=== PATIENT | male | born 1940 | race African-American/Black ===

== ENCOUNTER 2017-02-03 17:04 | Inpatient (IN) | payer MEDICARE, OTHER ==
[~2017-02-03] VITALS: Ht 172.7 cm; Wt 129.5 kg
[~2017-02-03 17:04] MED LIST: ALBU8.5H6 IH; AMLO5TAB2 PO; AMLO5TAB4 PO; ASPI325T4 PO; ASPI81TA44 PO; BACI28.43 TP; FEBU80TA2 PO; FERR325C PO; FLUT16SP NS; FLUT1DIS3 IH; FOLI0.8T3 PO; FURO40TA4 PO; FURO80TA3 PO; FURO80TA72 PO; GLIM4TAB2 PO; HYDR-2762 PO; INSU100I13 SQ; INSU100I17 SQ; INSU100I27 SQ; ISOS60TA2 PO; LINA5TAB PO; METO100T11 PO; METO5TAB PO; NIAC1000 PO; NITR0.4T6 SL; POTA10TA10 PO; POTA20TA12 PO; PSEU120T9 PO; RANI150T2 PO; SPIR25TA3 PO; SUCR1TAB PO; TRAM50TA PO; VITA1CAP5 PO
[2017-02-03] MEDS ORDERED: MORPHINE SULFATE 4 MG/ML DISP.SYRIN. IV ONE (17:45)
--- NOTE | 2017-02-03 18:39 | RAD ---
PROCEDURE CT of the abdomen and pelvis without contrast HISTORY Mid abdominal and low back pain. History of cholecystectomy. TECHNIQUE No intravenous or oral contrast as per request. Exposure: One or more of the following individualized dose reduction techniques were utilized for this exam: 1. Automated exposure control. 2. Adjustment of the mA and/or kV according to patient size. 3. Use of iterative reconstruction technique. COMPARISON July 07, 2010. FINDINGS Coronary calcifications are noted. Lung bases are clear. Examination of solid viscera, GI tract and vascular structures is compromised by the noncontrast technique. Liver and spleen unremarkable. Pancreas unremarkable. No adrenal mass Kidneys demonstrate mild cortical scarring. No evidence of hydronephrosis or obstructive calculus. Tiny exophytic nodule at the superior pole of the right kidney only measures 7 millimeters. Nonspecific but could represent a small hyperdense or hemorrhagic cyst. Gallbladder surgically absent. Aorta is mildly calcified but non aneurysmal. No significant lymph node enlargement is identified. Small hiatal hernia. No evidence of bowel obstruction. No pericolonic inflammatory type changes. The appendix appears normal. No evidence of ascites. No focal urinary bladder wall thickening. Degenerative spondylosis of the visualized spine. IMPRESSION 1. No evidence of acute abnormality. 2. Small 7 millimeter exophytic nodule at the upper pole the right kidney, could represent a hemorrhagic cyst. Consider outpatient ultrasound for further evaluation. Electronically signed by: Lucho Cordero MD (Feb 03, 2017 18:37:41)
[2017-02-03 19:11] LABS: BILIRUBIN,URINE NEGATIVE (NEG); GLUCOSE,URINE NEGATIVE (NEG); NITRITE,URINE NEGATIVE (NEG); PH,URINE 6.5; PROTEIN,URINE NEGATIVE (NEG-TRACE); UROBILINOGEN,URINE 0.2 mg/dL (0.2 mg/dL)
--- NOTE | 2017-02-03 19:15 | PHYS DOC ---
Past Medical History Past Medical History: Arthritis, Asthma, Bronchitis, CAD, COPD, Diabetes-Type II, High Cholesterol, Heart Disease, Renal Disease, Other Additional Past Medical Histor: "Kidney trouble.", hemmorhoids Past Surgical History: Angioplasty, Cholecystectomy, Other Additional Past Surgical Histo: Umbilical hernia, Cardiac stent x 4. Alcohol Use: None Drug Use: None Adult General Chief Complaint Chief Complaint: CHEST PAIN HPI HPI Patient is a 77 year old male who presents with back pain, abdominal pain, chest pain. Patient reports for the past 2 days he has been having mid/lower back pain, mid abdominal pain, intermittent chest pain. No SOB at this time. No clear inciting or mitigating factors. He has taken a pain pill at home with insufficient relief. No other acute complaints. Review of Systems Review of Systems Constitutional: Denies fever or chills Eyes: Denies change in visual acuity or eye pain HENT: Denies nasal congestion or sore throat Respiratory: Denies cough or shortness of breath Cardiovascular: Intermittent chest pain GI: Periumbilical abdominal pain. Denies nausea, vomiting, bloody stools or diarrhea : Denies dysuria or hematuria Musculoskeletal: Mid/lower back pain Integument: Denies rash or skin lesions Neurologic: Denies headache, focal weakness or sensory changes Current Medications Current Medications Current Medications Medications (Trade) Dose Ordered Sig/Jalyn Start Time Stop Time Status Last Admin Dose Admin Morphine Sulfate 4 mg 1X ONCE 02/03/17 17:45 02/03/17 17:46 DC 02/03/17 19:22 4 MG Allergies Allergies Allergies Coded Allergies Type Severity Reaction Last Updated Verified No Known Drug Allergies 06/27/14 No Physical Exam Physical Exam Constitutional: Well developed, well nourished, no acute distress, non-toxic appearance HENT: Normocephalic, atraumatic, bilateral external ears normal Eyes: EOMI, conjunctiva normal, no discharge Neck: Normal range of motion, no stridor Cardiovascular: Heart rate normal, regular rhythm, no murmur Lungs & Thorax: Bilateral breath sounds clear to auscultation Abdomen: Protuberant, bowel sounds normal, soft, non-distended, periumbilical TTP without guarding or rebound Skin: Warm, dry, no erythema, no rash Back: Mild general TTP across lumbar back, no stepoff or deformity, no skin lesion Extremities: No obvious deformity, no edema Neurologic: Alert and oriented X 3, no gross deficits noted Current Patient Data Vital Signs Vital Signs Date Time Temp Pulse Resp B/P Pulse Ox O2 Delivery O2 Flow Rate FiO2 02/03/17 19:22 Room Air 02/03/17 17:20 98.1 84 26 168/74 97 98.1 Lab Values Laboratory Tests Test 02/03/17 19:05 02/03/17 19:09 02/03/17 19:45 Urine Collection Type Unknown Urine Color Yellow Urine Clarity Cloudy Urine pH 6.5 Urine Specific [place] <=1.005 Urine Protein Negativemg/dL (NEG-TRACE) Urine Glucose (UA) Negativemg/dL (NEG) Urine Ketones (Stick) Negativemg/dL (NEG) Urine Blood Negative (NEG) Urine Nitrite Negative (NEG) Urine Bilirubin Negative (NEG) Urine Urobilinogen Dipstick 0.2mg/dL (0.2 mg/dL) Urine Leukocyte Esterase Negative (NEG) Urine RBC 0/HPF (0-2) Urine WBC 0/HPF (0-4) Urine Bacteria 0/HPF (0-FEW) Urine Hyaline Casts Few/HPF White Blood Count 8.0x10^3/uL (4.0-11.0) Red Blood Count 4.55x10^6/uL (4.30-5.70) Hemoglobin 13.6g/dL (13.0-17.5) Hematocrit 41.4% (39.0-53.0) Mean Corpuscular Volume 91fL (79-100) Mean Corpuscular Hemoglobin 30pg (25-35) Mean Corpuscular Hemoglobin Concent 33g/dL (31-37) Red Cell Distribution Width 16.3% (11.5-14.5) H Platelet Count 199x10^3/uL (140-400) Neutrophils (%) (Auto) 59% (31-73) Lymphocytes (%) (Auto) 22% (24-48) L Monocytes (%) (Auto) 11% (0-9) H Eosinophils (%) (Auto) 7% (0-3) H Basophils (%) (Auto) 1% (0-3) Neutrophils # (Auto) 4.7x10^3uL (1.8-7.7) Lymphocytes # (Auto) 1.8x10^3/uL (1.0-4.8) Monocytes # (Auto) 0.9x10^3/uL (0.0-1.1) Eosinophils # (Auto) 0.5x10^3/uL (0.0-0.7) Basophils # (Auto) 0.1x10^3/uL (0.0-0.2) Sodium Level 137mmol/L (136-145) Potassium Level 4.3mmol/L (3.5-5.1) Chloride Level 101mmol/L (98-107) Carbon Dioxide Level 31mmol/L (21-32) Anion Gap 5 (6-14) L Blood Urea Nitrogen 41mg/dL (8-26) H Creatinine 2.4mg/dL (0.7-1.3) H Estimated GFR (Cockcroft-Gault) 32.1 BUN/Creatinine Ratio 17 (6-20) Glucose Level 233mg/dL (70-99) H Calcium Level 10.0mg/dL (8.5-10.1) Total Bilirubin 0.2mg/dL (0.2-1.0) Aspartate Amino Transferase (AST) 15U/L (15-37) Alanine Aminotransferase (ALT) 23U/L (16-63) Alkaline Phosphatase 149U/L (46-116) H Troponin I Quantitative < 0.017ng/mL (0.000-0.055) Total Protein 7.5g/dL (6.4-8.2) Albumin 3.6g/dL (3.4-5.0) Albumin/Globulin Ratio 0.9 (1.0-1.7) L Lipase 193U/L (73-393) Laboratory Tests 02/03/17 19:09 Laboratory Tests 02/03/17 19:45 EKG EKG EKG (my read): sinus rhythm, rate 84, LAD, TX interval 352ms, no acute ST/T changes Radiology/Procedures Radiology/Procedures CT A/P: IMPRESSION 1. No evidence of acute abnormality. 2. Small 7 millimeter exophytic nodule at the upper pole the right kidney, could represent a hemorrhagic cyst. Consider outpatient ultrasound for further evaluation. CXR (my read): No acute abnormality Course & Med Decision Making Course & Med Decision Making Pertinent Labs and Imaging studies reviewed. (See chart for details) Patient is 77 year old male who presents with back, abdominal, chest pain. Will check EKG, labs, CXR, CT A/P (to r/o AAA). Pain meds ordered for relief of symptoms. Imaging and EKG results as above. Labs notable for elevated creatinine , near baseline. Troponin wnl. Discussed results with patient, who continues to have pain. Given extensive PMH and chest discomfort, I would like to admit patient for cardiac rule out. Discussed with Dr. Barragan, will admit under her care for further evaluation and treatment. Dragon Disclaimer Dragon Disclaimer This electronic medical record was generated, in whole or in part, using a voice recognition dictation system. Departure Departure Impression: Primary Impression: Chest pain Additional Impressions: Abdominal pain Back pain Disposition: ADMITTED INPATIENT Admitting Physician: Other Condition: STABLE Referrals: DUSTIN RAMIREZ TELEVISION WRITER (PCP) Problem Qualifiers MADY PAYTON MD Feb 03, 2017 19:15
[2017-02-03 19:21] LABS: BACTERIA,URINE 0 /HPF (0-FEW); RBC,URINE 0 /HPF (0-2); WBC,URINE 0 /HPF (0-4)
[2017-02-03 19:22] LABS: BASO # 0.1 x10^3/uL (0.0-0.2); BASO % 1 % (0-3); EOS % 7 % (0-3); HEMATOCRIT 41.4 % (39.0-53.0); HEMOGLOBIN 13.6 g/dL (13.0-17.5); LYMPH # 1.8 x10^3/uL (1.0-4.8); LYMPH % 22 % (24-48); MEAN CORPUSCULAR HEMOGLOBIN 30 pg (25-35); MEAN CORPUSCULAR HGB CONC 33 g/dL (31-37); MEAN CORPUSCULAR VOLUME 91 fL (79-100); MONO % 11 % (0-9); NEUT % 59 % (31-73); PLATELET COUNT 199 x10^3/uL (140-400); RED BLOOD COUNT 4.55 x10^6/uL (4.30-5.70); RED CELL DISTRIBUTION WIDTH 16.3 % (11.5-14.5)
[2017-02-03 20:00] LABS: CREATININE 2.4 mg/dL (0.7-1.3); GFR 32.1; POTASSIUM 4.3 mmol/L (3.5-5.1)
[2017-02-03 20:06] LABS: ALBUMIN 3.6 g/dL (3.4-5.0); ALBUMIN/GLOBULIN RATIO 0.9 (1.0-1.7); TOTAL BILIRUBIN 0.2 mg/dL (0.2-1.0); TOTAL PROTEIN 7.5 g/dL (6.4-8.2)
[2017-02-03] MEDS ORDERED: DEXTROSE 50% 25 GM / 50ML DISP.SYRIN. IV PRN (21:45)
[2017-02-03] MEDS ORDERED: ACETAMINOPHEN 325 MG TABLET. PO PRN (21:45)
[2017-02-03] MEDS ORDERED: NITROGLYCERIN SUBLINGUAL 0.4 MG BOTTLE OF 25. SL PRN (21:45)
[2017-02-03] MEDS ORDERED: ONDANSETRON PF 4 MG/2 ML VIAL. IV PRN (21:45)
[2017-02-03] MEDS ORDERED: MORPHINE SULFATE 4 MG/ML DISP.SYRIN. IV PRN (21:45)
--- NOTE | 2017-02-03 22:03 | ACF ---
Admission Forms Criteria CHEST PAIN Clinical Indications for Admission to Inpatient Care (Place 'X' for any and all applicable criteria): Admission is indicated for chest pain and ANY ONE of the following(1)(2)(3)(4)(5 ): [ ]I. Angina with acute coronary syndrome (Also use Myocardial Infarction or Angina guideline) [ ]II. Hemodynamic instability [ ]III. Angina needing acute intervention as indicated by ALL of the following( 11)(12): [ ]a) Unstable angina is present as indicated by angina that is ANY ONE of the following: [ ]i) New onset [ ]ii) Nocturnal [ ]iii) Prolonged at rest [ ]iv) Progressive [ ]b) Angina warrants acute intervention as indicated by ANY ONE of the following: [ ]i) Recurrent angina (e.g, not responding as previously to treatment) [ ]ii) Angina at rest or with low-level activities despite initial medical therapy [ ]iii) New or presumably new ST-segment depression on ECG [ ]iv) Signs or symptoms of heart failure (eg, dyspnea, pulmonary edema) [ ]v) New or worsening mitral regurgitation [ ]vi) Hemodynamic instability [ ]vii) Dangerous arrhythmia (eg, sustained ventricular tachycardia) [ ]viii) History of percutaneous coronary intervention within 6 months [ ]ix) History of coronary artery bypass graft surgery [ ]x) OTF risk score of 2 or greater[A] [ ]xi) History of Diabetes(14) [ ]xii) High-risk cardiac ischemia findings on noninvasive testing (e.g, echocardiogram, treadmill testing, nuclear scan) [ ]xiii) Chronic renal insufficiency (ie, estimated GFR less than 60 mL/min/1.732m) [ ]xiv) Left ventricular ejection fraction less than 40% [ ]IV. Evidence of UT (eg, cardiac biomarkers positive, ST-segment elevation on ECG) also use Myocardial Infarction Criteria Form. [ ]V. Pulmonary edema [ ]. Respiratory distress [ ]VII. Chest pain indicative of serious diagnosis other than coronary artery disease (eg, aortic dissection) [ ]VIII. Contraindications and/or Inappropriate clinical situations for Observational Care in patients with Chest Pain, when ANY ONE of the following is required: [ ]a) Patient with risk factor for pulmonary embolism, acute coronary syndrome and myocardial infarction (18) [ ]b) Patient with Pulmonary embolism require an average LOS of 4.3 days, therefore emergency department observation management is inappropriate 18,23 [ ]c) Painful condition/s in the elderly, have the highest rate of recidivism after emergency department observation management (10.8%) 20,21,22 [ ]d) Elevated cardiac biomarker requires intensive and exhaustive care (19) [X]IX. General contraindications and/or Inappropriate clinical situations for Observational Care in patients with Chest Pain, when ANY ONE of the following is required: [X]a) Prediction of prolongation of LOS based on ANY ONE of the following may be considered as a contraindication for observational care 2, 3, 4, 5, 6, 7, 8, 9, 10, 11 [X]i) Age > 65 yrs. [ ]ii) Patient arriving by ambulance [ ]iii) Patient with high acuity [ ]iv) Patient requiring vital sign monitoring [ ]v) Patient on IV medication [ ]b) Systolic blood pressures 180mmHg 3,12 [ ]c) Patient with altered mental status including delirium and other alteration of consciousness, (3) [ ]d) Patient whose discharge disposition will be to a shelter home or rehabilitation home should not be managed in Emergency Department Observation Unit. CMS rule requires 3 days hospital stay before such placement. 3,13 [ ]e) Patient with failure to thrive due to broad array of etiologies 3,16,17 [ ]f) Inability to ambulate 3,14 Extended stay beyond goal length of stay may be needed for (1)(28): [ ]a) Specific condition diagnosed after evaluation (eg, pulmonary embolism, aortic dissection) [ ]b) Unstable angina [ ]c) Continued suspicion of acute coronary syndrome with inability to complete needed cardiac evaluation (eg, patient clinically unable to undergo stress testing) [ ]d) Myocardial infarction (Contents from ANGINA and CHEST PAIN clinical indications for admission to inpatient care have been integrated in this form) The original [employer] content created by [employer] has been revised. The portions of the content which have been revised are identified through the use of italic text or in bold, and [employer] [email or web address] has neither reviewed nor approved the modified material. All other unmodified content is copyright [employer] [facility]. Please see references footnoted in the original [employer] [facility] edition 2016 Admission Criteria Met?: Yes JUNI NICHOLSON Feb 03, 2017 22:03
[2017-02-03] MEDS ORDERED: ASPIRIN CHEWABLE 81 MG TABLET. PO ONE (23:00)
[2017-02-03 23:42] VITALS: BP 140/64
[2017-02-04 03:07] VITALS: BP 131/63
[2017-02-04 07:15] VITALS: BP 131/67
--- NOTE | 2017-02-04 07:36 | EKG ---
[facility] [address] [place] [address] Test Date: 2017-02-03 Test Time: 17:18:50 Pat Name: ANAHI BARTON Department: Room: [facility] Gender: M State Auditor: : 1940 Requested By: MADY PAYTON Order Number: [id number] Reading MD: Jazzy Alejandra Measurements Intervals [place] Rate: 84 P: 20 NC: 352 QRS: -27 QRSD: 78 T: 63 QT: 342 QTc: 407 Interpretive Statements SINUS RHYTHM PROLONGED NC INTERVAL Electronically Signed On 02-06-2017 10:13:20 CDT by Jazzy Alejandra
--- NOTE | 2017-02-04 08:38 | RAD ---
Portable chest, 02/03/2017: History: Chest pain, hypertension Comparison is made to a study from 06/09/2016. The heart size and pulmonary vascularity are normal. There is calcific plaquing of aorta. There is minimal left basilar scarring. No acute infiltrates are seen. There is no evidence of pleural fluid. Moderate spurring is present in the spine. IMPRESSION: No acute cardiopulmonary abnormality is detected.
[2017-02-04] MEDS ORDERED: ALBUTEROL SULFATE 8GM INHALER. IH PRN (08:45)
[2017-02-04] MEDS ORDERED: NITROGLYCERIN SUBLINGUAL 0.4 MG BOTTLE OF 25. SL PRN (08:45)
[2017-02-04] MEDS ORDERED: HYDROCODONE/APAP 7.5/325MG TABLET. PO PRN (08:45)
[2017-02-04] MEDS: INSULIN ASPART 300 UNITS/3 ML INSULN.PEN SQ SCH ×3 (08:56→17:09)
--- NOTE | 2017-02-04 08:57 | PDOC1 ---
History and Physical Date of Admission Date of Admission DATE: 02/04/17 TIME: 08:56 Identification/Chief Complaint Chief Complaint pain, mult Problems: Source Source: Caregiver, Chart review, Patient History of Present Illness History of Present Illness Mr. Hand was admitted overnight. He complained to the ER of new pain. Pain in his back and abd and chest. No new cough or dyspnea. Known prior CAD, prior stents, Dr. Rick, known CKD, has seen Dr. Love, weight has been stable, mod DM2 control, no new changes or travel. Pain 5/10, worse with movement, pain on right side of spine with standing and pain in lower abdomen when trying to sit up. his reports he is more hard of hearing, he may have been taking 160 BID lasix instead of 80 BID that was written Past Medical History Cardiovascular: AFIB, CAD, CHF, HTN, Hyperlipidemia Pulmonary: COPD, Other GI: GI bleed Heme/Onc: Anemia NOS Musculoskeletal: Other Rheumatologic: Gout Renal/: Chronic renal insuff Endocrine: Diabetes Past Surgical History Past Surgical History: Cholecystectomy, Cataract Removal, Hernia Repair, Other Family History Family History: Coronary Artery Disease, Diabetes, Hypertension, Kidney Disease Social History Smoke: Quit ALCOHOL: none Drugs: None Current Problem List Problem List Problems Medical Problems: (1) Abdominal pain Status: Acute (2) Abdominal pain Status: Acute (3) Back pain Status: Acute (4) Back pain Status: Acute (5) Chest pain Status: Acute Problems: Current Medications Current Medications Current Medications Morphine Sulfate 4 mg 1X ONCE IV Last administered on 02/03/17 19:22; Start 02/03/17 at 17:45; Stop 02/03/17 at 17:46; Status DC Ondansetron HCl (Zofran) 4 mg PRN Q8HRS PRN IV NAUSEA/VOMITING; Start 02/03/17 at 21:45; Stop 02/04/17 at 21:44 Morphine Sulfate 4 mg PRN Q2HR PRN IV SEVERE PAIN Last administered on 23:07; Start 02/03/17 at 21:45; Stop 02/04/17 at 21:44 Acetaminophen (Tylenol) 650 mg PRN Q4HRS PRN PO FEVER; Start 02/03/17 at 21:45 ; Stop 02/04/17 at 21:44 Nitroglycerin (Nitrostat) 0.4 mg PRN Q5MIN PRN SL CHEST PAIN; Start 02/03/17 at 21:45; Stop 02/04/17 at 21:44 Insulin Aspart (Novolog) 0-7 UNITS TIDWMEALS SQ ; Start 02/04/17 at 08:00 Dextrose (Dextrose 50%-Water Syringe) 12.5 gm PRN Q15MIN PRN IV SEE COMMENTS; Start 02/03/17 at 21:45 Aspirin (Children'S Aspirin) 324 mg 1X ONCE PO Last administered on 02/03/17t 23:06; Start 02/03/17 at 23:00; Stop 02/03/17 at 23:01; Status DC Albuterol Sulfate (Ventolin Hfa) 1 puff Q4HRS PRN IH SHORTNESS OF BREATH; Start 02/04/17 at 08:45; Status UNV Amlodipine Besylate (Norvasc) 5 mg DAILY PO ; Start 02/04/17 at 09:00 Fluticasone Propionate (Flonase) 2 spray DAILY NS ; Start 02/04/17 at 09:00 Acetaminophen/ Hydrocodone Bitart (Lortab 7.5/325) 1 tab PRN Q6HRS PRN PO PAIN ; Start 02/04/17 at 08:45 Insulin Detemir (Levemir) 40 units DAILY SQ ; Start 02/04/17 at 09:00 Isosorbide Mononitrate (Imdur) 60 mg DAILY PO ; Start 02/04/17 at 09:00 Linagliptin (Tradjenta) 5 mg DAILY PO ; Start 02/04/17 at 09:00 Metoprolol Succinate (Toprol Xl) 100 mg DAILY PO ; Start 02/04/17 at 09:00 Nitroglycerin (Nitrostat) 0.4 mg PRN Q5MIN PRN SL CHEST PAIN; Start 02/04/17 at 08:45 Spironolactone (Aldactone) 25 mg DAILY PO ; Start 02/04/17 at 09:00 Sucralfate (Carafate) 1 gm QIDACHS PO ; Start 02/04/17 at 11:30 Famotidine (Pepcid) 20 mg DAILY PO ; Start 02/04/17 at 09:00 Albuterol Sulfate (Ventolin Neb Soln) 2.5 mg PRN Q4HRS PRN NEB SHORTNESS OF BREATH; Start 02/04/17 at 09:00 Active Scripts Active Children's Aspirin (Aspirin) 81 Mg Tab.chew 324 Mg PO 1X Tradjenta (Linagliptin) 5 Mg Tablet 5 Mg PO DAILY Reported Levemir Flextouch (Insulin Detemir) 100 Unit/1 Ml Insuln.pen 50 SQ Lantus Solostar (Insulin Glargine,Hum.rec.anlog) 100 Unit/1 Ml Insuln.pen 0 SQ QHS Fluticasone Propionate Nasal [place] (Fluticasone Propionate) 16 Gm [place].susp 2 [place] NS DAILY Spironolactone 25 Mg Tablet 25 Mg PO DAILY NITROGLYCERIN SubLingual (Nitroglycerin) 0.4 Mg Tab.subl 0.4 Mg SL PRN Q5MIN PRN Niaspan (Niacin) 1,000 Mg Tab.er.24h 500 Mg PO HS Metoprolol Succinate ( Xl ) (Metoprolol Succinate) 100 Mg Tab.er.24h 100 Mg PO DAILY Amlodipine Besylate 5 Mg Tablet 5 Mg PO DAILY Tramadol Hcl 50 Mg Tablet 50 Mg PO PRN Q6HRS PRN Hydrocodone-Apap 7.5-325 (Hydrocodone Bit/Acetaminophen) 1 Each Tablet 1 Each PO PRN Q6HRS PRN Nephro-Macho Tablet (Folic Acid/Vitamin B Comp W-C) 0.8 Mg Tablet 0.8 Mg PO DAILY Sucralfate 1 Gm Tablet 1 Gm PO QIDACHS Ranitidine Hcl 150 Mg Tablet 150 Mg PO DAILY Isosorbide Mononitrate Er (Isosorbide Mononitrate) 60 Mg Tab.er.24h 60 Mg PO DAILY Albuterol Sulfate Hfa Inhaler (Albuterol Sulfate) 8.5 Gm Hfa.aer.ad 90 Mcg IH PRN Q4-6HRS PRN Iron (Ferrous Sulfate) 325 Mg Capsule.er 325 Mg PO DAILY Allergies Allergies: Coded Allergies: No Known Drug Allergies (Unverified , 06/27/14) ROS General: YES: Fatigue, Malaise, No: Appetite, Chills, Night Sweats, Other PSYCHOLOGICAL ROS: No: Anxiety, Behavioral Disorder, Concentration difficultie , Decreased libido, Depression, Disorientation, Hallucinations, Hostility, Irritablity, Memory difficulties, Mood Swings, Obsessive thoughts, Other, Physical abuse, Sexual abuse, Sleep disturbances, Suicidal ideation Eyes: No Blurry vision, No Decreased vision, No Double vision, No Dry eyes, No Excessive tearing, No Eye Pain, No Itchy Eyes, No Loss of vision, No Other, No Photophobia, No Scotomata, No Uses contacts, No Uses glasses HEENT: YES: Heacaches, Other (more hard of hearing), No: Epistaxis, Hearing change, Nasal congestion, Nasal discharge, Oral lesions, Sinus pain, Sneezing, Snoring, Sore Throat, Tinnitus, Vertigo, Visual Changes, Vocal changes Respiratory: No: Cough, Hemoptysis, Orthopnea, Other, Pleuritic Pain, SOB with excertion, Shortness of breath, Sputum Changes, Stridor, Tachypnea, Wheezing Cardiovascular: yes Chest Pain, No Edema, No Lt Headedness, No Orthopnea, No Other, No Palpitations, No Paroxysmal Noc. Dyspnea Gastrointestinal: Yes Abdominal Pain, No Constipation, No Diarrhea, No Hematochezia, No Melena, No Nausea, No Other , No Vomiting Genitourinary: No , No , No , No , No , No , No , No Discharge, No Dysuria, No Flank Pain, No Frequency, No Hematuria, No Incontinence, No Other, No Pain, No Retention, No Urgency Musculoskeletal: Yes Gait Disturbance, Yes Joint Pain, Yes Joint Stiffness Neurological: No Behavorial Changes, No Bowel/Bladder ControlChng, No Confusion , No Dizziness, No Gait Disturbance, No Headaches, No Impaired Coord/balance, No Memory Loss, No Numbness/Tingling, No Other, No Seizures, No Speech Problems , No Tremors, No Visual Changes, No Weakness Skin: Yes Dry Skin, No Acne, No Hair Changes, No Lumps, No Mole Changes, No Mottling, No Nail Changes, No Other, No Pruritus, No Rash, No Skin Lesion Changes Physical Exam General: Alert, Oriented X3, Cooperative, No acute distress HEENT: Atraumatic, PERRLA, EOMI, Mucous membr. moist/pink Lungs: Clear to auscultation, Normal air movement Heart: no murmurs Abdomen: Normal bowel sounds, Soft (very obese, TTP bilat lower) Rectal Exam: not examined Extremities: No edema, Other (+ clubbing, ) Skin: No breakdown Neuro: Normal speech, Sensation intact Psych/Mental Status: Mental status NL, Mood NL Vitals Vitals Vital Signs Date Time Temp Pulse Resp B/P Pulse Ox O2 Delivery O2 Flow Rate FiO2 02/04/17 07:15 98.1 74 15 131/67 92 Room Air 98.1 Labs Labs Laboratory Tests Test 02/03/17 19:05 02/03/17 19:09 02/03/17 19:45 02/04/17 03:37 Urine Collection Type Unknown Urine Color Yellow Urine Clarity Cloudy Urine pH 6.5 Urine Specific [place] <=1.005 Urine Protein Negativemg/dL (NEG-TRACE) Urine Glucose (UA) Negativemg/dL (NEG) Urine Ketones (Stick) Negativemg/dL (NEG) Urine Blood Negative (NEG) Urine Nitrite Negative (NEG) Urine Bilirubin Negative (NEG) Urine Urobilinogen Dipstick 0.2mg/dL (0.2 mg/dL) Urine Leukocyte Esterase Negative (NEG) Urine RBC 0/HPF (0-2) Urine WBC 0/HPF (0-4) Urine Bacteria 0/HPF (0-FEW) Urine Hyaline Casts Few/HPF White Blood Count 8.0x10^3/uL (4.0-11.0) Red Blood Count 4.55x10^6/uL (4.30-5.70) Hemoglobin 13.6g/dL (13.0-17.5) Hematocrit 41.4% (39.0-53.0) Mean Corpuscular Volume 91fL (79-100) Mean Corpuscular Hemoglobin 30pg (25-35) Mean Corpuscular Hemoglobin Concent 33g/dL (31-37) Red Cell Distribution Width 16.3% (11.5-14.5) Platelet Count 199x10^3/uL (140-400) Neutrophils (%) (Auto) 59% (31-73) Lymphocytes (%) (Auto) 22% (24-48) Monocytes (%) (Auto) 11% (0-9) Eosinophils (%) (Auto) 7% (0-3) Basophils (%) (Auto) 1% (0-3) Neutrophils # (Auto) 4.7x10^3uL (1.8-7.7) Lymphocytes # (Auto) 1.8x10^3/uL (1.0-4.8) Monocytes # (Auto) 0.9x10^3/uL (0.0-1.1) Eosinophils # (Auto) 0.5x10^3/uL (0.0-0.7) Basophils # (Auto) 0.1x10^3/uL (0.0-0.2) Sodium Level 137mmol/L (136-145) Potassium Level 4.3mmol/L (3.5-5.1) Chloride Level 101mmol/L (98-107) Carbon Dioxide Level 31mmol/L (21-32) Anion Gap 5 (6-14) Blood Urea Nitrogen 41mg/dL (8-26) Creatinine 2.4mg/dL (0.7-1.3) Estimated GFR (Cockcroft-Gault) 32.1 BUN/Creatinine Ratio 17 (6-20) Glucose Level 233mg/dL (70-99) Calcium Level 10.0mg/dL (8.5-10.1) Total Bilirubin 0.2mg/dL (0.2-1.0) Aspartate Amino Transf (AST/SGOT) 15U/L (15-37) Alanine Aminotransferase (ALT/SGPT) 23U/L (16-63) Alkaline Phosphatase 149U/L (46-116) Troponin I Quantitative < 0.017ng/mL (0.000-0.055) < 0.017ng/mL (0.000-0.055) Total Protein 7.5g/dL (6.4-8.2) Albumin 3.6g/dL (3.4-5.0) Albumin/Globulin Ratio 0.9 (1.0-1.7) Lipase 193U/L (73-393) Test 02/04/17 07:46 Glucose (Fingerstick) 168mg/dL (70-99) Laboratory Tests Test 02/03/17 19:05 02/03/17 19:09 02/03/17 19:45 02/04/17 03:37 Urine Collection Type Unknown Urine Color Yellow Urine Clarity Cloudy Urine pH 6.5 Urine Specific [place] <=1.005 Urine Protein Negativemg/dL (NEG-TRACE) Urine Glucose (UA) Negativemg/dL (NEG) Urine Ketones (Stick) Negativemg/dL (NEG) Urine Blood Negative (NEG) Urine Nitrite Negative (NEG) Urine Bilirubin Negative (NEG) Urine Urobilinogen Dipstick 0.2mg/dL (0.2 mg/dL) Urine Leukocyte Esterase Negative (NEG) Urine RBC 0/HPF (0-2) Urine WBC 0/HPF (0-4) Urine Bacteria 0/HPF (0-FEW) Urine Hyaline Casts Few/HPF White Blood Count 8.0x10^3/uL (4.0-11.0) Red Blood Count 4.55x10^6/uL (4.30-5.70) Hemoglobin 13.6g/dL (13.0-17.5) Hematocrit 41.4% (39.0-53.0) Mean Corpuscular Volume 91fL (79-100) Mean Corpuscular Hemoglobin 30pg (25-35) Mean Corpuscular Hemoglobin Concent 33g/dL (31-37) Red Cell Distribution Width 16.3% (11.5-14.5) Platelet Count 199x10^3/uL (140-400) Neutrophils (%) (Auto) 59% (31-73) Lymphocytes (%) (Auto) 22% (24-48) Monocytes (%) (Auto) 11% (0-9) Eosinophils (%) (Auto) 7% (0-3) Basophils (%) (Auto) 1% (0-3) Neutrophils # (Auto) 4.7x10^3uL (1.8-7.7) Lymphocytes # (Auto) 1.8x10^3/uL (1.0-4.8) Monocytes # (Auto) 0.9x10^3/uL (0.0-1.1) Eosinophils # (Auto) 0.5x10^3/uL (0.0-0.7) Basophils # (Auto) 0.1x10^3/uL (0.0-0.2) Sodium Level 137mmol/L (136-145) Potassium Level 4.3mmol/L (3.5-5.1) Chloride Level 101mmol/L (98-107) Carbon Dioxide Level 31mmol/L (21-32) Anion Gap 5 (6-14) Blood Urea Nitrogen 41mg/dL (8-26) Creatinine 2.4mg/dL (0.7-1.3) Estimated GFR (Cockcroft-Gault) 32.1 BUN/Creatinine Ratio 17 (6-20) Glucose Level 233mg/dL (70-99) Calcium Level 10.0mg/dL (8.5-10.1) Total Bilirubin 0.2mg/dL (0.2-1.0) Aspartate Amino Transf (AST/SGOT) 15U/L (15-37) Alanine Aminotransferase (ALT/SGPT) 23U/L (16-63) Alkaline Phosphatase 149U/L (46-116) Troponin I Quantitative < 0.017ng/mL (0.000-0.055) < 0.017ng/mL (0.000-0.055) Total Protein 7.5g/dL (6.4-8.2) Albumin 3.6g/dL (3.4-5.0) Albumin/Globulin Ratio 0.9 (1.0-1.7) Lipase 193U/L (73-393) Test 02/04/17 07:46 Glucose (Fingerstick) 168mg/dL (70-99) VTE Prophylaxis Ordered VTE Prophylaxis Devices: Yes VTE Pharmacological Prophylaxi: No Assessment/Plan Assessment/Plan Back pain, chest pain, abd pain, consult Physiatry CT abd showed possible small bleed near kidney, renal to follow, pain minor if this is cause muscular pain also, PT and OT and pain control morbid obesity, BMI 59 CKD 3-4 CAD, known DM2, check A1c admit EVERARDO STEPHENS MD Feb 04, 2017 08:57
[2017-02-04] MEDS ORDERED: ALBUTEROL SULFATE 2.5 MG/3 ML NEBU. NEB PRN (09:00)
[2017-02-04] MEDS ORDERED: IPRATRPIUM/ALBUTEROL 0.5/2.5MG 3 ML NEBU. NEB PRN (09:15)
[2017-02-04] MEDS ORDERED: BUPIVACAINE MPF 0.25% 10 ML VIAL. IJ ONE (09:30)
[2017-02-04] MEDS ORDERED: BACLOFEN 10 MG TABLET. PO PRN (09:30)
[2017-02-04] MEDS ORDERED: methylPREDNISolone ACETATE 40 MG/ML VIAL. IM ONE (09:30)
[2017-02-04] MEDS ORDERED: HYDROCODONE/APAP 10/325 TABLET. PO PRN (09:30)
[2017-02-04] MEDS: MINERAL OIL/PETROLATUM TOPICAL CREAM 113GM JAR. TP SCH ×2 (10:00→20:38)
[2017-02-04] MEDS: ISOSORBIDE MONONITRATE ER 30 MG TAB.ER.24H PO SCH (10:13)
[2017-02-04] MEDS: METOPROLOL SUCC 24HR ER 100 MG TAB.ER.24H. PO SCH (10:14)
[2017-02-04] MEDS: AMLODIPINE BESYLATE 5 MG TABLET. PO SCH (10:14)
[2017-02-04] MEDS: LINAGLIPTIN 5 MG TABLET PO SCH (10:14)
[2017-02-04] MEDS: SPIRONOLACTONE 25 MG TABLET PO SCH (10:14)
[2017-02-04] MEDS: FAMOTIDINE 20 MG TABLET. PO SCH (10:14)
[2017-02-04] MEDS: INSULIN DETEMIR 300 UNITS/3 ML INSULN.PEN. SQ SCH (10:18)
--- NOTE | 2017-02-04 10:23 | PDOC2 ---
CONSULT Date of Consult Date of Consult DATE: 02/04/17 TIME: 10:17 Reason for Consult Reason for Consult: AIDEN/ CK DIII Referring Physician Referring Physician: Dr Barragan/ Dr Lopez Identification/Chief Complaint Chief Complaint Pain all over Problems: Source Source: Chart review, Patient History of Present Illness Reason for Visit: as dictated Past Medical History Cardiovascular: AFIB, CAD, CHF, HTN, Hyperlipidemia Pulmonary: COPD, Other GI: GI bleed Heme/Onc: Anemia NOS Musculoskeletal: Other Rheumatologic: Gout Renal/: Chronic renal insuff Endocrine: Diabetes Past Surgical History Past Surgical History: Cholecystectomy, Cataract Removal, Hernia Repair, Other Family History Family History: Coronary Artery Disease, Diabetes, Hypertension, Kidney Disease Social History Quit ALCOHOL: none Drugs: None Lives: with Family Current Problem List Problem List Problems Medical Problems: (1) Abdominal pain Status: Acute (2) Abdominal pain Status: Acute (3) Back pain Status: Acute (4) Back pain Status: Acute (5) Chest pain Status: Acute Current Medications Current Medications Current Medications Morphine Sulfate 4 mg 1X ONCE IV Last administered on 02/03/17 19:22; Start 02/03/17 at 17:45; Stop 02/03/17 at 17:46; Status DC Ondansetron HCl (Zofran) 4 mg PRN Q8HRS PRN IV NAUSEA/VOMITING; Start 02/03/17 at 21:45; Stop 02/04/17 at 21:44 Morphine Sulfate 4 mg PRN Q2HR PRN IV SEVERE PAIN Last administered on 23:07; Start 02/03/17 at 21:45; Stop 02/04/17 at 21:44 Acetaminophen (Tylenol) 650 mg PRN Q4HRS PRN PO FEVER; Start 02/03/17 at 21:45 ; Stop 02/04/17 at 21:44 Nitroglycerin (Nitrostat) 0.4 mg PRN Q5MIN PRN SL CHEST PAIN; Start 02/03/17 at 21:45; Stop 02/04/17 at 21:44 Insulin Aspart (Novolog) 0-7 UNITS TIDWMEALS SQ Last administered on 02/04/17 08:56; Start 02/04/17 at 08:00 Dextrose (Dextrose 50%-Water Syringe) 12.5 gm PRN Q15MIN PRN IV SEE COMMENTS; Start 02/03/17 at 21:45 Aspirin (Children'S Aspirin) 324 mg 1X ONCE PO Last administered on 02/03/17t 23:06; Start 02/03/17 at 23:00; Stop 02/03/17 at 23:01; Status DC Albuterol Sulfate (Ventolin Hfa) 1 puff Q4HRS PRN IH SHORTNESS OF BREATH; Start 02/04/17 at 08:45; Status UNV Amlodipine Besylate (Norvasc) 5 mg DAILY PO ; Start 02/04/17 at 09:00 Fluticasone Propionate (Flonase) 2 spray DAILY NS ; Start 02/04/17 at 09:00 Acetaminophen/ Hydrocodone Bitart (Lortab 7.5/325) 1 tab PRN Q6HRS PRN PO PAIN ; Start 02/04/17 at 08:45 Insulin Detemir (Levemir) 40 units DAILY SQ ; Start 02/04/17 at 09:00 Isosorbide Mononitrate (Imdur) 60 mg DAILY PO ; Start 02/04/17 at 09:00 Linagliptin (Tradjenta) 5 mg DAILY PO ; Start 02/04/17 at 09:00 Metoprolol Succinate (Toprol Xl) 100 mg DAILY PO ; Start 02/04/17 at 09:00 Nitroglycerin (Nitrostat) 0.4 mg PRN Q5MIN PRN SL CHEST PAIN; Start 02/04/17 at 08:45 Spironolactone (Aldactone) 25 mg DAILY PO ; Start 02/04/17 at 09:00 Sucralfate (Carafate) 1 gm QIDACHS PO ; Start 02/04/17 at 11:30 Famotidine (Pepcid) 20 mg DAILY PO ; Start 02/04/17 at 09:00 Albuterol Sulfate (Ventolin Neb Soln) 2.5 mg PRN Q4HRS PRN NEB SHORTNESS OF BREATH; Start 02/04/17 at 09:00 Albuterol/ Ipratropium (Duoneb) 3 ml PRN QID PRN NEB dyspnea; Start 02/04/17 at 09:15 Methylprednisolone Acetate (Depo-Medrol 40mg Vial) 40 mg 1X ONCE IM ; Start at 09:30; Stop 02/04/17 at 09:41; Status DC Bupivacaine HCl (Sensorcaine-Mpf 0.25%) 10 ml 1X ONCE IJ ; Start 02/04/17 at 09 :30; Stop 02/04/17 at 09:41; Status DC Acetaminophen/ Hydrocodone Bitart (Lortab 10/325) 1 tab PRN Q6HRS PRN PO PAIN; Start 02/04/17 at 09:30 Baclofen (Lioresal) 10 mg PRN Q6HRS PRN PO MUSCLE SPASMS; Start 02/04/17 at 09: 30 Lidocaine (Lidoderm) 1 patch DAILY TD ; Start 02/04/17 at 10:00 Multi-Ingred Cream/Lotion/Oil/ Oint (Hydrocerin) 1 junie BID TP ; Start 02/04/17 at 10:00 Active Scripts Active Children's Aspirin (Aspirin) 81 Mg Tab.chew 324 Mg PO 1X Tradjenta (Linagliptin) 5 Mg Tablet 5 Mg PO DAILY Reported Levemir Flextouch (Insulin Detemir) 100 Unit/1 Ml Insuln.pen 50 SQ Lantus Solostar (Insulin Glargine,Hum.rec.anlog) 100 Unit/1 Ml Insuln.pen 0 SQ QHS Fluticasone Propionate Nasal [place] (Fluticasone Propionate) 16 Gm [place].susp 2 [place] NS DAILY Spironolactone 25 Mg Tablet 25 Mg PO DAILY NITROGLYCERIN SubLingual (Nitroglycerin) 0.4 Mg Tab.subl 0.4 Mg SL PRN Q5MIN PRN Niaspan (Niacin) 1,000 Mg Tab.er.24h 500 Mg PO HS Metoprolol Succinate ( Xl ) (Metoprolol Succinate) 100 Mg Tab.er.24h 100 Mg PO DAILY Amlodipine Besylate 5 Mg Tablet 5 Mg PO DAILY Tramadol Hcl 50 Mg Tablet 50 Mg PO PRN Q6HRS PRN Hydrocodone-Apap 7.5-325 (Hydrocodone Bit/Acetaminophen) 1 Each Tablet 1 Each PO PRN Q6HRS PRN Nephro-Macho Tablet (Folic Acid/Vitamin B Comp W-C) 0.8 Mg Tablet 0.8 Mg PO DAILY Sucralfate 1 Gm Tablet 1 Gm PO QIDACHS Ranitidine Hcl 150 Mg Tablet 150 Mg PO DAILY Isosorbide Mononitrate Er (Isosorbide Mononitrate) 60 Mg Tab.er.24h 60 Mg PO DAILY Albuterol Sulfate Hfa Inhaler (Albuterol Sulfate) 8.5 Gm Hfa.aer.ad 90 Mcg IH PRN Q4-6HRS PRN Iron (Ferrous Sulfate) 325 Mg Capsule.er 325 Mg PO DAILY Allergies Allergies: Coded Allergies: No Known Drug Allergies (Unverified , 06/27/14) ROS Review of System GEN: no Fevers no Chills EYES: no new Visual Complaints ENT: no EN Drainage n Hearing deficiets CVS: no Orthopnea + CP (POA) - now resolved RESP: Subj SOB ? [facility] GI: no Nausea no Vomiting ? Subj Constipation : no Dysuria no Urgency Dec UO HEME: no easy bruising no Palp Ly Nodes NEURO no Focal Weakness no Sz PSYCH: no Suicidal Ideation ?underlying Depression SKIN: no Rashes ENDO: no Polyuria or Polydipsia no Hot/Cold Intolerance MU SK: occ Arthraigia min Myalgia Physical Exam Physical Exam General Appearance: Awake Alert Oriented x 3 In no Distress - flat affect Eyes: VIsion Unchanged Conjunctiva Normal EN: No EN Drainage Mucous Memb. dryish Neck: no JVD no JVP Supple no Thyromegaly; thic neck CVS: S1 S2 no Murmur No Gallop No Rub + Edema Resp: no Rales no Rhonchi no Acc. Muscle use GI: BAS +ve NO Bruit Non Tender Non Distended Obese : no CVA tenderness; no Suprapubic Tenderness SKIN: no Rashes Breast Exam deferred Mu.Sk: Adequate ROM no Muscle Atrophy Heme: Unable to palpate Obvious LAD no palp Splenomegaly NEURO: Good Strength and Tone Cranial Nerves II - XII grossly intact Psych: ? Depressed no Active hallucination Vital Signs Vital Signs Date Time Temp Pulse Resp B/P Pulse Ox O2 Delivery O2 Flow Rate FiO2 02/04/17 07:15 98.1 74 15 131/67 92 Room Air 98.1 Assessment & Plan ARF/ VMN - due to ^ed Lasix intake. Currently Oliguric - IVF for now: (UA is benign) Current FLuid and E-lyte status does not necessitate emergent need for Dialysis. Will re-evaluate for Dialysis in am CKD III (DM/ HTNsive /NS) - Baseline Creat was 2.0 Oliguria - IVF for now and revMaribel carrasco Bl Scan ? ^ed Protein gap - Unclear Etio - check for Paraprotein ? Vol Dpeltion - IVF as ordered HTN: Current BP meds reviewed. See orders for changes. Discussed Plan of Care and prognosis etc. at length with family. Labs Labs Laboratory Tests Test 02/03/17 19:05 02/03/17 19:09 02/03/17 19:45 02/04/17 03:37 Urine Collection Type Unknown Urine Color Yellow Urine Clarity Cloudy Urine pH 6.5 Urine Specific [place] <=1.005 Urine Protein Negativemg/dL (NEG-TRACE) Urine Glucose (UA) Negativemg/dL (NEG) Urine Ketones (Stick) Negativemg/dL (NEG) Urine Blood Negative (NEG) Urine Nitrite Negative (NEG) Urine Bilirubin Negative (NEG) Urine Urobilinogen Dipstick 0.2mg/dL (0.2 mg/dL) Urine Leukocyte Esterase Negative (NEG) Urine RBC 0/HPF (0-2) Urine WBC 0/HPF (0-4) Urine Bacteria 0/HPF (0-FEW) Urine Hyaline Casts Few/HPF White Blood Count 8.0x10^3/uL (4.0-11.0) Red Blood Count 4.55x10^6/uL (4.30-5.70) Hemoglobin 13.6g/dL (13.0-17.5) Hematocrit 41.4% (39.0-53.0) Mean Corpuscular Volume 91fL (79-100) Mean Corpuscular Hemoglobin 30pg (25-35) Mean Corpuscular Hemoglobin Concent 33g/dL (31-37) Red Cell Distribution Width 16.3% (11.5-14.5) Platelet Count 199x10^3/uL (140-400) Neutrophils (%) (Auto) 59% (31-73) Lymphocytes (%) (Auto) 22% (24-48) Monocytes (%) (Auto) 11% (0-9) Eosinophils (%) (Auto) 7% (0-3) Basophils (%) (Auto) 1% (0-3) Neutrophils # (Auto) 4.7x10^3uL (1.8-7.7) Lymphocytes # (Auto) 1.8x10^3/uL (1.0-4.8) Monocytes # (Auto) 0.9x10^3/uL (0.0-1.1) Eosinophils # (Auto) 0.5x10^3/uL (0.0-0.7) Basophils # (Auto) 0.1x10^3/uL (0.0-0.2) Sodium Level 137mmol/L (136-145) Potassium Level 4.3mmol/L (3.5-5.1) Chloride Level 101mmol/L (98-107) Carbon Dioxide Level 31mmol/L (21-32) Anion Gap 5 (6-14) Blood Urea Nitrogen 41mg/dL (8-26) Creatinine 2.4mg/dL (0.7-1.3) Estimated GFR (Cockcroft-Gault) 32.1 BUN/Creatinine Ratio 17 (6-20) Glucose Level 233mg/dL (70-99) Calcium Level 10.0mg/dL (8.5-10.1) Total Bilirubin 0.2mg/dL (0.2-1.0) Aspartate Amino Transf (AST/SGOT) 15U/L (15-37) Alanine Aminotransferase (ALT/SGPT) 23U/L (16-63) Alkaline Phosphatase 149U/L (46-116) Troponin I Quantitative < 0.017ng/mL (0.000-0.055) < 0.017ng/mL (0.000-0.055) Total Protein 7.5g/dL (6.4-8.2) Albumin 3.6g/dL (3.4-5.0) Albumin/Globulin Ratio 0.9 (1.0-1.7) Lipase 193U/L (73-393) Test 02/04/17 07:46 Glucose (Fingerstick) 168mg/dL (70-99) Laboratory Tests Test 02/03/17 19:05 02/03/17 19:09 02/03/17 19:45 02/04/17 03:37 Urine Collection Type Unknown Urine Color Yellow Urine Clarity Cloudy Urine pH 6.5 Urine Specific [place] <=1.005 Urine Protein Negativemg/dL (NEG-TRACE) Urine Glucose (UA) Negativemg/dL (NEG) Urine Ketones (Stick) Negativemg/dL (NEG) Urine Blood Negative (NEG) Urine Nitrite Negative (NEG) Urine Bilirubin Negative (NEG) Urine Urobilinogen Dipstick 0.2mg/dL (0.2 mg/dL) Urine Leukocyte Esterase Negative (NEG) Urine RBC 0/HPF (0-2) Urine WBC 0/HPF (0-4) Urine Bacteria 0/HPF (0-FEW) Urine Hyaline Casts Few/HPF White Blood Count 8.0x10^3/uL (4.0-11.0) Red Blood Count 4.55x10^6/uL (4.30-5.70) Hemoglobin 13.6g/dL (13.0-17.5) Hematocrit 41.4% (39.0-53.0) Mean Corpuscular Volume 91fL (79-100) Mean Corpuscular Hemoglobin 30pg (25-35) Mean Corpuscular Hemoglobin Concent 33g/dL (31-37) Red Cell Distribution Width 16.3% (11.5-14.5) Platelet Count 199x10^3/uL (140-400) Neutrophils (%) (Auto) 59% (31-73) Lymphocytes (%) (Auto) 22% (24-48) Monocytes (%) (Auto) 11% (0-9) Eosinophils (%) (Auto) 7% (0-3) Basophils (%) (Auto) 1% (0-3) Neutrophils # (Auto) 4.7x10^3uL (1.8-7.7) Lymphocytes # (Auto) 1.8x10^3/uL (1.0-4.8) Monocytes # (Auto) 0.9x10^3/uL (0.0-1.1) Eosinophils # (Auto) 0.5x10^3/uL (0.0-0.7) Basophils # (Auto) 0.1x10^3/uL (0.0-0.2) Sodium Level 137mmol/L (136-145) Potassium Level 4.3mmol/L (3.5-5.1) Chloride Level 101mmol/L (98-107) Carbon Dioxide Level 31mmol/L (21-32) Anion Gap 5 (6-14) Blood Urea Nitrogen 41mg/dL (8-26) Creatinine 2.4mg/dL (0.7-1.3) Estimated GFR (Cockcroft-Gault) 32.1 BUN/Creatinine Ratio 17 (6-20) Glucose Level 233mg/dL (70-99) Calcium Level 10.0mg/dL (8.5-10.1) Total Bilirubin 0.2mg/dL (0.2-1.0) Aspartate Amino Transf (AST/SGOT) 15U/L (15-37) Alanine Aminotransferase (ALT/SGPT) 23U/L (16-63) Alkaline Phosphatase 149U/L (46-116) Troponin I Quantitative < 0.017ng/mL (0.000-0.055) < 0.017ng/mL (0.000-0.055) Total Protein 7.5g/dL (6.4-8.2) Albumin 3.6g/dL (3.4-5.0) Albumin/Globulin Ratio 0.9 (1.0-1.7) Lipase 193U/L (73-393) Test 02/04/17 07:46 Glucose (Fingerstick) 168mg/dL (70-99) Images Images CT Abd Without IVC : Kidneys demonstrate mild cortical scarring. No evidence of hydronephrosis or obstructive calculus. Tiny exophytic nodule at the superior pole of the right kidney only measures 7 millimeters. Nonspecific but could represent a small hyperdense or hemorrhagic cyst. Gallbladder surgically absent. Aorta is mildly calcified but non aneurysmal JOHANNY MURPHY MD Feb 04, 2017 10:23
[2017-02-04] MEDS ORDERED: MAGNESIUM SULFATE 2GM 50 ML IV PRN (10:30)
--- NOTE | 2017-02-04 10:44 | CONS ---
DATE OF CONSULTATION: LOCATION: Room 530. ATTENDING PHYSICIAN: Dr. Radha Barragan. The patient was seen at the request of Dr. Lopez for rehab evaluation about his back pain. HISTORY OF PRESENT ILLNESS: This is a 77-year-old right-handed male admitted through the Emergency Room with lower back pain without any radiation, without any specific injury going on for about two days. The patient with known coronary artery disease status post previous stenting, chronic kidney disease, being followed by Dr. Love, also diabetes mellitus, under good control. His weight has been stable. The patient admits pain on the right side of his spine, standing and also admits some lower abdominal pain while trying to sit up. The patient also with known congestive heart failure, hypertension, hyperlipidemia, chronic obstructive pulmonary disease, previous smoker, but quit smoking, GI bleed in the past, anemia, and gouty arthritis. He lives with his in a [place], [place] home, had five stairs with railing to enter the house and he did not use any assistive device to get around prior to the present hospitalization. Past medical history also included cholecystectomy, cataract surgery, and hernia repair. He denies any tingling or numbness sensation in the extremities. He denies any trouble with his bowel or bladder control. PHYSICAL EXAMINATION: Today revealed an elderly male. He is obese. He is alert, oriented to time, place, person and circumstance and follows commands appropriately, moves all four extremities voluntarily where he had 4+/5 grade muscle strength and deep tendon reflexes are decreased overall with absent ankle jerks and he had equal perception of touch and pinprick sensation bilaterally. Straight leg raising test is negative bilaterally. He had dry scaly skin of his extremities. He had minimal degree of lumbar paraspinal muscle spasm and tenderness to palpation over lumbar paraspinal muscles extending over to sacroiliac joint area, mainly on the right side. The patient is independent with bed mobility and transfers and walking at bedside without any assistive devices. He had painful limited movements of his lumbar spine. ASSESSMENT: An elderly male with radiological evidence of degenerative disk disease mainly at L5-S1 with subacute lumbar sprain. No clinical evidence of ongoing lumbar radiculopathy, also obesity, hypertension, hyperlipidemia, diabetes mellitus, coronary artery disease, congestive heart failure, atrial fibrillation, chronic obstructive pulmonary disease, previous gastrointestinal bleeding, or chronic renal insufficiency. RECOMMENDATIONS: Agree with the plan for physical therapy and occupational therapy. He apparently has some lumbar corset to ask his to bring it for use while up to proceed with a trigger point injections to lumbar paraspinal muscles to help ease his back pain. Hopefully, home when medically stable in the next day or so. Dr. Lopez, I appreciate asking me to participate in the care of this interesting patient. I will be glad to follow him with you as needed for the rehabilitation. CINDY NELSON MD DR: JODI/maude JOB#: [id number] / [id number]
[2017-02-04] MEDS: FLUTICASONE 50MCG/NASAL SPRAY 16GM BOTTLE. NS SCH (11:26)
[2017-02-04] MEDS: LIDOCAINE (700MG/PATCH) PATCH. TD SCH (11:27)
[2017-02-04] MEDS: SUCRALFATE 1 GM TABLET. PO SCH ×3 (11:27→20:37)
[2017-02-04 11:40] VITALS: BP 120/62
--- NOTE | 2017-02-04 12:05 | RAD ---
Indication small mass seen on CT. Grayscale imaging was performed targeted to the kidneys. Study is somewhat limited by virtue of patient body habitus. Note is made of the CT examination 02/03/2017 and the accompanying report. The right kidney measures 12.9 x 4.9 x 6.3 cm. In the superior pole of the right kidney there is an 8 mm hypoechoic mass compatible with a cyst. The left kidney measures approximately 12.4 x 4.6 x 6.1 cm and appears unremarkable. The urinary bladder appears grossly normal. IMPRESSION: Small cyst associated with the right kidney
--- NOTE | 2017-02-04 12:27 | PDOC2 ---
CONSULT Date of Consult Date of Consult DATE: 02/04/17 Reason for Consult Reason for Consult: chest pain/back pain History of Present Illness Reason for Visit: Patient presented to the ED complaining of abdominal/back and chest pain. CT abdomen showed a small bleed near the kidney. He denies any shortness of breath or cough. Patient denies any cardiac complaints at this time. Past Medical History Cardiovascular: AFIB, CAD, CHF, HTN, Hyperlipidemia Pulmonary: COPD, Other GI: GI bleed Heme/Onc: Anemia NOS Musculoskeletal: Other Rheumatologic: Gout Renal/: Chronic renal insuff Endocrine: Diabetes Past Surgical History Past Surgical History: Cholecystectomy, Cataract Removal, Hernia Repair, Other Family History Family History: Coronary Artery Disease, Diabetes, Hypertension, Kidney Disease Social History Quit ALCOHOL: none Drugs: None Lives: with Family Current Problem List Problem List Problems Medical Problems: (1) Abdominal pain Status: Acute (2) Abdominal pain Status: Acute (3) Back pain Status: Acute (4) Back pain Status: Acute (5) Chest pain Status: Acute Current Medications Current Medications Current Medications Morphine Sulfate 4 mg 1X ONCE IV Last administered on 02/03/17 19:22; Start 02/03/17 at 17:45; Stop 02/03/17 at 17:46; Status DC Ondansetron HCl (Zofran) 4 mg PRN Q8HRS PRN IV NAUSEA/VOMITING; Start 02/03/17 at 21:45; Stop 02/04/17 at 21:44 Morphine Sulfate 4 mg PRN Q2HR PRN IV SEVERE PAIN Last administered on 23:07; Start 02/03/17 at 21:45; Stop 02/04/17 at 21:44 Acetaminophen (Tylenol) 650 mg PRN Q4HRS PRN PO FEVER; Start 02/03/17 at 21:45 ; Stop 02/04/17 at 21:44 Nitroglycerin (Nitrostat) 0.4 mg PRN Q5MIN PRN SL CHEST PAIN; Start 02/03/17 at 21:45; Stop 02/04/17 at 21:44 Insulin Aspart (Novolog) 0-7 UNITS TIDWMEALS SQ Last administered on 02/04/17 08:56; Start 02/04/17 at 08:00 Dextrose (Dextrose 50%-Water Syringe) 12.5 gm PRN Q15MIN PRN IV SEE COMMENTS; Start 02/03/17 at 21:45 Aspirin (Children'S Aspirin) 324 mg 1X ONCE PO Last administered on 02/03/17 23:06; Start 02/03/17 at 23:00; Stop 02/03/17 at 23:01; Status DC Albuterol Sulfate (Ventolin Hfa) 1 puff Q4HRS PRN IH SHORTNESS OF BREATH; Start 02/04/17 at 08:45; Status UNV Amlodipine Besylate (Norvasc) 5 mg DAILY PO Last administered on 02/04/17 10: 14; Start 02/04/17 at 09:00 Fluticasone Propionate (Flonase) 2 spray DAILY NS Last administered on 11:26; Start 02/04/17 at 09:00 Acetaminophen/ Hydrocodone Bitart (Lortab 7.5/325) 1 tab PRN Q6HRS PRN PO PAIN ; Start 02/04/17 at 08:45 Insulin Detemir (Levemir) 40 units DAILY SQ Last administered on 02/04/17 10: 18; Start 02/04/17 at 09:00 Isosorbide Mononitrate (Imdur) 60 mg DAILY PO Last administered on 02/04/17 10 :13; Start 02/04/17 at 09:00 Linagliptin (Tradjenta) 5 mg DAILY PO Last administered on 02/04/17 10:14; Start 02/04/17 at 09:00 Metoprolol Succinate (Toprol Xl) 100 mg DAILY PO Last administered on 10:14; Start 02/04/17 at 09:00 Nitroglycerin (Nitrostat) 0.4 mg PRN Q5MIN PRN SL CHEST PAIN; Start 02/04/17 at 08:45 Spironolactone (Aldactone) 25 mg DAILY PO Last administered on 02/04/17 10:14 ; Start 02/04/17 at 09:00 Sucralfate (Carafate) 1 gm QIDACHS PO Last administered on 02/04/17 11:27; Start 02/04/17 at 11:30 Famotidine (Pepcid) 20 mg DAILY PO Last administered on 02/04/17 10:14; Start 02/04/17 at 09:00 Albuterol Sulfate (Ventolin Neb Soln) 2.5 mg PRN Q4HRS PRN NEB SHORTNESS OF BREATH; Start 02/04/17 at 09:00 Albuterol/ Ipratropium (Duoneb) 3 ml PRN QID PRN NEB dyspnea Last administered on 02/04/17 11:58; Start 02/04/17 at 09:15 Methylprednisolone Acetate (Depo-Medrol 40mg Vial) 40 mg 1X ONCE IM ; Start at 09:30; Stop 02/04/17 at 09:41; Status DC Bupivacaine HCl (Sensorcaine-Mpf 0.25%) 10 ml 1X ONCE IJ ; Start 02/04/17 at 09 :30; Stop 02/04/17 at 09:41; Status DC Acetaminophen/ Hydrocodone Bitart (Lortab 10/325) 1 tab PRN Q6HRS PRN PO PAIN; Start 02/04/17 at 09:30 Baclofen (Lioresal) 10 mg PRN Q6HRS PRN PO MUSCLE SPASMS; Start 02/04/17 at 09: 30 Lidocaine (Lidoderm) 1 patch DAILY TD Last administered on 02/04/17 11:27; Start 02/04/17 at 10:00 Multi-Ingred Cream/Lotion/Oil/ Oint 1 junie 1 junie BID TP Last administered on 10:00; Start 02/04/17 at 10:00 Magnesium Sulfate/ Dextrose (Magnesium Sulfate PREMIX 2GM) 50 ml @ 25 mls/hr PRN DAILY PRN IV for Mag < 1.7 on am labs; Start 02/04/17 at 10:30 Active Scripts Active Children's Aspirin (Aspirin) 81 Mg Tab.chew 324 Mg PO 1X Tradjenta (Linagliptin) 5 Mg Tablet 5 Mg PO DAILY Reported Levemir Flextouch (Insulin Detemir) 100 Unit/1 Ml Insuln.pen 50 SQ Lantus Solostar (Insulin Glargine,Hum.rec.anlog) 100 Unit/1 Ml Insuln.pen 0 SQ QHS Fluticasone Propionate Nasal [place] (Fluticasone Propionate) 16 Gm [place].susp 2 [place] NS DAILY Spironolactone 25 Mg Tablet 25 Mg PO DAILY NITROGLYCERIN SubLingual (Nitroglycerin) 0.4 Mg Tab.subl 0.4 Mg SL PRN Q5MIN PRN Niaspan (Niacin) 1,000 Mg Tab.er.24h 500 Mg PO HS Metoprolol Succinate ( Xl ) (Metoprolol Succinate) 100 Mg Tab.er.24h 100 Mg PO DAILY Amlodipine Besylate 5 Mg Tablet 5 Mg PO DAILY Tramadol Hcl 50 Mg Tablet 50 Mg PO PRN Q6HRS PRN Hydrocodone-Apap 7.5-325 (Hydrocodone Bit/Acetaminophen) 1 Each Tablet 1 Each PO PRN Q6HRS PRN Nephro-Macho Tablet (Folic Acid/Vitamin B Comp W-C) 0.8 Mg Tablet 0.8 Mg PO DAILY Sucralfate 1 Gm Tablet 1 Gm PO QIDACHS Ranitidine Hcl 150 Mg Tablet 150 Mg PO DAILY Isosorbide Mononitrate Er (Isosorbide Mononitrate) 60 Mg Tab.er.24h 60 Mg PO DAILY Albuterol Sulfate Hfa Inhaler (Albuterol Sulfate) 8.5 Gm Hfa.aer.ad 90 Mcg IH PRN Q4-6HRS PRN Iron (Ferrous Sulfate) 325 Mg Capsule.er 325 Mg PO DAILY Allergies Allergies: Coded Allergies: No Known Drug Allergies (Unverified , 06/27/14) Physical Exam Physical Exam GENERAL: patient sitting up comfortably in recliner chair, no acute distress HEART: regular rate, no murmur noted LUNGS: clear to auscultation bilaterally, no wheezing noted EXTREMITIES: no pedal edema bilaterally Vitals VITALS Vital Signs Date Time Temp Pulse Resp B/P Pulse Ox O2 Delivery O2 Flow Rate FiO2 02/04/17 11:59 97 Room Air 02/04/17 11:40 97.8 73 17 120/62 97.8 Labs Labs Laboratory Tests Test 02/03/17 19:05 02/03/17 19:09 02/03/17 19:45 02/04/17 03:37 Urine Collection Type Unknown Urine Color Yellow Urine Clarity Cloudy Urine pH 6.5 Urine Specific [place] <=1.005 Urine Protein Negativemg/dL (NEG-TRACE) Urine Glucose (UA) Negativemg/dL (NEG) Urine Ketones (Stick) Negativemg/dL (NEG) Urine Blood Negative (NEG) Urine Nitrite Negative (NEG) Urine Bilirubin Negative (NEG) Urine Urobilinogen Dipstick 0.2mg/dL (0.2 mg/dL) Urine Leukocyte Esterase Negative (NEG) Urine RBC 0/HPF (0-2) Urine WBC 0/HPF (0-4) Urine Bacteria 0/HPF (0-FEW) Urine Hyaline Casts Few/HPF White Blood Count 8.0x10^3/uL (4.0-11.0) Red Blood Count 4.55x10^6/uL (4.30-5.70) Hemoglobin 13.6g/dL (13.0-17.5) Hematocrit 41.4% (39.0-53.0) Mean Corpuscular Volume 91fL (79-100) Mean Corpuscular Hemoglobin 30pg (25-35) Mean Corpuscular Hemoglobin Concent 33g/dL (31-37) Red Cell Distribution Width 16.3% (11.5-14.5) Platelet Count 199x10^3/uL (140-400) Neutrophils (%) (Auto) 59% (31-73) Lymphocytes (%) (Auto) 22% (24-48) Monocytes (%) (Auto) 11% (0-9) Eosinophils (%) (Auto) 7% (0-3) Basophils (%) (Auto) 1% (0-3) Neutrophils # (Auto) 4.7x10^3uL (1.8-7.7) Lymphocytes # (Auto) 1.8x10^3/uL (1.0-4.8) Monocytes # (Auto) 0.9x10^3/uL (0.0-1.1) Eosinophils # (Auto) 0.5x10^3/uL (0.0-0.7) Basophils # (Auto) 0.1x10^3/uL (0.0-0.2) Sodium Level 137mmol/L (136-145) Potassium Level 4.3mmol/L (3.5-5.1) Chloride Level 101mmol/L (98-107) Carbon Dioxide Level 31mmol/L (21-32) Anion Gap 5 (6-14) Blood Urea Nitrogen 41mg/dL (8-26) Creatinine 2.4mg/dL (0.7-1.3) Estimated GFR (Cockcroft-Gault) 32.1 BUN/Creatinine Ratio 17 (6-20) Glucose Level 233mg/dL (70-99) Calcium Level 10.0mg/dL (8.5-10.1) Total Bilirubin 0.2mg/dL (0.2-1.0) Aspartate Amino Transf (AST/SGOT) 15U/L (15-37) Alanine Aminotransferase (ALT/SGPT) 23U/L (16-63) Alkaline Phosphatase 149U/L (46-116) Troponin I Quantitative < 0.017ng/mL (0.000-0.055) < 0.017ng/mL (0.000-0.055) Total Protein 7.5g/dL (6.4-8.2) Albumin 3.6g/dL (3.4-5.0) Albumin/Globulin Ratio 0.9 (1.0-1.7) Lipase 193U/L (73-393) Test 02/04/17 07:46 02/04/17 09:35 02/04/17 12:12 Glucose (Fingerstick) 168mg/dL (70-99) 201mg/dL (70-99) Troponin I Quantitative < 0.017ng/mL (0.000-0.055) Laboratory Tests Test 02/03/17 19:05 02/03/17 19:09 02/03/17 19:45 02/04/17 03:37 Urine Collection Type Unknown Urine Color Yellow Urine Clarity Cloudy Urine pH 6.5 Urine Specific [place] <=1.005 Urine Protein Negativemg/dL (NEG-TRACE) Urine Glucose (UA) Negativemg/dL (NEG) Urine Ketones (Stick) Negativemg/dL (NEG) Urine Blood Negative (NEG) Urine Nitrite Negative (NEG) Urine Bilirubin Negative (NEG) Urine Urobilinogen Dipstick 0.2mg/dL (0.2 mg/dL) Urine Leukocyte Esterase Negative (NEG) Urine RBC 0/HPF (0-2) Urine WBC 0/HPF (0-4) Urine Bacteria 0/HPF (0-FEW) Urine Hyaline Casts Few/HPF White Blood Count 8.0x10^3/uL (4.0-11.0) Red Blood Count 4.55x10^6/uL (4.30-5.70) Hemoglobin 13.6g/dL (13.0-17.5) Hematocrit 41.4% (39.0-53.0) Mean Corpuscular Volume 91fL (79-100) Mean Corpuscular Hemoglobin 30pg (25-35) Mean Corpuscular Hemoglobin Concent 33g/dL (31-37) Red Cell Distribution Width 16.3% (11.5-14.5) Platelet Count 199x10^3/uL (140-400) Neutrophils (%) (Auto) 59% (31-73) Lymphocytes (%) (Auto) 22% (24-48) Monocytes (%) (Auto) 11% (0-9) Eosinophils (%) (Auto) 7% (0-3) Basophils (%) (Auto) 1% (0-3) Neutrophils # (Auto) 4.7x10^3uL (1.8-7.7) Lymphocytes # (Auto) 1.8x10^3/uL (1.0-4.8) Monocytes # (Auto) 0.9x10^3/uL (0.0-1.1) Eosinophils # (Auto) 0.5x10^3/uL (0.0-0.7) Basophils # (Auto) 0.1x10^3/uL (0.0-0.2) Sodium Level 137mmol/L (136-145) Potassium Level 4.3mmol/L (3.5-5.1) Chloride Level 101mmol/L (98-107) Carbon Dioxide Level 31mmol/L (21-32) Anion Gap 5 (6-14) Blood Urea Nitrogen 41mg/dL (8-26) Creatinine 2.4mg/dL (0.7-1.3) Estimated GFR (Cockcroft-Gault) 32.1 BUN/Creatinine Ratio 17 (6-20) Glucose Level 233mg/dL (70-99) Calcium Level 10.0mg/dL (8.5-10.1) Total Bilirubin 0.2mg/dL (0.2-1.0) Aspartate Amino Transf (AST/SGOT) 15U/L (15-37) Alanine Aminotransferase (ALT/SGPT) 23U/L (16-63) Alkaline Phosphatase 149U/L (46-116) Troponin I Quantitative < 0.017ng/mL (0.000-0.055) < 0.017ng/mL (0.000-0.055) Total Protein 7.5g/dL (6.4-8.2) Albumin 3.6g/dL (3.4-5.0) Albumin/Globulin Ratio 0.9 (1.0-1.7) Lipase 193U/L (73-393) Test 02/04/17 07:46 02/04/17 09:35 02/04/17 12:12 Glucose (Fingerstick) 168mg/dL (70-99) 201mg/dL (70-99) Troponin I Quantitative < 0.017ng/mL (0.000-0.055) Assessment/Plan Assessment/Plan Patient's symptoms appear to be noncardiac in origin. Stable from cardiac standpoint. Will continue to monitor. Agree with present plan. Thank you for the consult. ORIANA ANTONIO MD Feb 04, 2017 12:27
[2017-02-04 15:24] VITALS: BP 113/63
[2017-02-04 19:00] VITALS: BP 128/64
[2017-02-04 19:12] LABS: TOTAL PROTEIN CREATININE RATIO 116 mg/g creat (0-200); UR PROTEIN RD 12.2 mg/dL (Not Estab.)
--- NOTE | 2017-02-04 22:41 | CONS ---
DATE OF CONSULTATION: 02/04/2017 PRIMARY PHYSICIAN: Dr. Radha Barragan HISTORY OF PRESENT ILLNESS: The patient is a 77-year-old gentleman followed by Dr. Love for known chronic renal insufficiency. He is also known to be a type 2 diabetic and coronary artery disease with pulmonary hypertension. Last echocardiogram available to me in the system shows preserved LV function. He presented to the ER with complaint of back pain, abdominal pain and chest pain, being going on for the last 2-[address]. [address] Lopez's H and P, it appears that the patient may have been taking double dose of Lasix instead of the 80 b.i.d. as was written for him. He admits he is not urinating much. His creatinine usually runs around 2.0 as of about 6 months ago. He is now up to 2.4. He denies urgency or frequency at this time. He does not admit to NSAID use. His baseline creatinine runs about 2.0 ____ mentioned previously. He is noted to be on Tradjenta. In this setting, he was admitted to the hospital for further evaluation. He denies hematuria, etc. at this time. For rest of details, see electronic records. JOHANNY MURPHY MD DR: JAMES/maude JOB#: [id number] / [id number]
[2017-02-04 23:00] VITALS: BP 123/64
[2017-02-05 03:21] VITALS: BP 125/66
[2017-02-05 05:08] LABS: BASO # 0.1 x10^3/uL (0.0-0.2); BASO % 1 % (0-3); EOS % 7 % (0-3); HEMOGLOBIN 12.9 g/dL (13.0-17.5); LYMPH # 1.8 x10^3/uL (1.0-4.8); LYMPH % 24 % (24-48); MEAN CORPUSCULAR HEMOGLOBIN 29 pg (25-35); MEAN CORPUSCULAR HGB CONC 33 g/dL (31-37); MEAN CORPUSCULAR VOLUME 89 fL (79-100); MONO % 14 % (0-9); NEUT % 54 % (31-73); PLATELET COUNT 204 x10^3/uL (140-400); RED CELL DISTRIBUTION WIDTH 15.7 % (11.5-14.5); WHITE BLOOD COUNT 7.4 x10^3/uL (4.0-11.0)
[2017-02-05 05:38] LABS: ALBUMIN 3.3 g/dL (3.4-5.0); ALBUMIN/GLOBULIN RATIO 0.9 (1.0-1.7); CALCIUM 9.5 mg/dL (8.5-10.1); CREATININE 2.4 mg/dL (0.7-1.3); GFR 32.1; PHOSPHORUS 3.7 mg/dL (2.6-4.7); TOTAL BILIRUBIN 0.3 mg/dL (0.2-1.0)
[2017-02-05 07:15] VITALS: BP 137/65
[2017-02-05] MEDS: INSULIN ASPART 300 UNITS/3 ML INSULN.PEN SQ SCH ×2 (07:53→11:44)
[2017-02-05] MEDS: SUCRALFATE 1 GM TABLET. PO SCH ×2 (07:53→11:43)
[2017-02-05] MEDS: FLUTICASONE 50MCG/NASAL SPRAY 16GM BOTTLE. NS SCH (08:51)
[2017-02-05] MEDS: ISOSORBIDE MONONITRATE ER 30 MG TAB.ER.24H PO SCH (08:51)
[2017-02-05] MEDS: METOPROLOL SUCC 24HR ER 100 MG TAB.ER.24H. PO SCH (08:52)
[2017-02-05] MEDS: FAMOTIDINE 20 MG TABLET. PO SCH (08:52)
[2017-02-05] MEDS: AMLODIPINE BESYLATE 5 MG TABLET. PO SCH (08:52)
[2017-02-05] MEDS: LINAGLIPTIN 5 MG TABLET PO SCH (08:52)
[2017-02-05] MEDS: SPIRONOLACTONE 25 MG TABLET PO SCH (08:52)
[2017-02-05] MEDS: LIDOCAINE (700MG/PATCH) PATCH. TD SCH (08:53)
[2017-02-05] MEDS: MINERAL OIL/PETROLATUM TOPICAL CREAM 113GM JAR. TP SCH (08:53)
[2017-02-05] MEDS: INSULIN DETEMIR 300 UNITS/3 ML INSULN.PEN. SQ SCH (09:02)
--- NOTE | 2017-02-05 09:06 | PDOC ---
PROGRESS NOTES Subjective Subjective He admits back pain is less. Objective Objective Vital Signs Date Time Temp Pulse Resp B/P Pulse Ox O2 Delivery O2 Flow Rate FiO2 02/05/17 08:52 79 137/65 02/05/17 08:30 Room Air 02/05/17 07:15 98.7 20 95 98.7 Intake and Output 02/05/17 07:00 Intake Total 3140 ml Output Total 1980 ml Balance 1160 ml Intake Oral 3140 ml Output Urine Total 1980 ml Physical Exam Physical Exam He is comfortable,supine in bed and he is walking without any assistance. Assessment Assessment Problems Medical Problems: (1) Abdominal pain Status: Acute (2) Abdominal pain Status: Acute (3) Back pain Status: Acute (4) Back pain Status: Acute (5) Chest pain Status: Acute Plan Plan of Residential when medically stable. Comment Review of Relevant I have reviewed the following items melissa (where applicable) has been applied. Labs Laboratory Tests Test 02/03/17 19:05 02/03/17 19:09 02/03/17 19:45 02/04/17 03:37 Urine Collection Type Unknown Urine Color Yellow Urine Clarity Cloudy Urine pH 6.5 Urine Specific [place] <=1.005 Urine Protein Negativemg/dL (NEG-TRACE) Urine Glucose (UA) Negativemg/dL (NEG) Urine Ketones (Stick) Negativemg/dL (NEG) Urine Blood Negative (NEG) Urine Nitrite Negative (NEG) Urine Bilirubin Negative (NEG) Urine Urobilinogen Dipstick 0.2mg/dL (0.2 mg/dL) Urine Leukocyte Esterase Negative (NEG) Urine RBC 0/HPF (0-2) Urine WBC 0/HPF (0-4) Urine Bacteria 0/HPF (0-FEW) Urine Hyaline Casts Few/HPF White Blood Count 8.0x10^3/uL (4.0-11.0) Red Blood Count 4.55x10^6/uL (4.30-5.70) Hemoglobin 13.6g/dL (13.0-17.5) Hematocrit 41.4% (39.0-53.0) Mean Corpuscular Volume 91fL (79-100) Mean Corpuscular Hemoglobin 30pg (25-35) Mean Corpuscular Hemoglobin Concent 33g/dL (31-37) Red Cell Distribution Width 16.3% (11.5-14.5) Platelet Count 199x10^3/uL (140-400) Neutrophils (%) (Auto) 59% (31-73) Lymphocytes (%) (Auto) 22% (24-48) Monocytes (%) (Auto) 11% (0-9) Eosinophils (%) (Auto) 7% (0-3) Basophils (%) (Auto) 1% (0-3) Neutrophils # (Auto) 4.7x10^3uL (1.8-7.7) Lymphocytes # (Auto) 1.8x10^3/uL (1.0-4.8) Monocytes # (Auto) 0.9x10^3/uL (0.0-1.1) Eosinophils # (Auto) 0.5x10^3/uL (0.0-0.7) Basophils # (Auto) 0.1x10^3/uL (0.0-0.2) Sodium Level 137mmol/L (136-145) Potassium Level 4.3mmol/L (3.5-5.1) Chloride Level 101mmol/L (98-107) Carbon Dioxide Level 31mmol/L (21-32) Anion Gap 5 (6-14) Blood Urea Nitrogen 41mg/dL (8-26) Creatinine 2.4mg/dL (0.7-1.3) Estimated GFR (Cockcroft-Gault) 32.1 BUN/Creatinine Ratio 17 (6-20) Glucose Level 233mg/dL (70-99) Calcium Level 10.0mg/dL (8.5-10.1) Total Bilirubin 0.2mg/dL (0.2-1.0) Aspartate Amino Transf (AST/SGOT) 15U/L (15-37) Alanine Aminotransferase (ALT/SGPT) 23U/L (16-63) Alkaline Phosphatase 149U/L (46-116) Troponin I Quantitative < 0.017ng/mL (0.000-0.055) < 0.017ng/mL (0.000-0.055) Total Protein 7.5g/dL (6.4-8.2) Albumin 3.6g/dL (3.4-5.0) Albumin/Globulin Ratio 0.9 (1.0-1.7) Lipase 193U/L (73-393) Test 02/04/17 07:46 02/04/17 09:35 02/04/17 12:10 02/04/17 12:12 Glucose (Fingerstick) 168mg/dL (70-99) 201mg/dL (70-99) Troponin I Quantitative < 0.017ng/mL (0.000-0.055) Urine Protein 12.2mg/dL (Not Estab.) Urine Random Sodium 62mmol/L (Not Estab.) Urine Creatinine 105.1mg/dL (Not Estab.) Urine Protein/Creatinine Ratio 116mg/g creat (0-200) Test 02/04/17 16:40 02/04/17 21:33 02/05/17 04:25 02/05/17 07:31 Glucose (Fingerstick) 222mg/dL (70-99) 288mg/dL (70-99) 219mg/dL (70-99) White Blood Count 7.4x10^3/uL (4.0-11.0) Red Blood Count 4.40x10^6/uL (4.30-5.70) Hemoglobin 12.9g/dL (13.0-17.5) Hematocrit 39.0% (39.0-53.0) Mean Corpuscular Volume 89fL (79-100) Mean Corpuscular Hemoglobin 29pg (25-35) Mean Corpuscular Hemoglobin Concent 33g/dL (31-37) Red Cell Distribution Width 15.7% (11.5-14.5) Platelet Count 204x10^3/uL (140-400) Neutrophils (%) (Auto) 54% (31-73) Lymphocytes (%) (Auto) 24% (24-48) Monocytes (%) (Auto) 14% (0-9) Eosinophils (%) (Auto) 7% (0-3) Basophils (%) (Auto) 1% (0-3) Neutrophils # (Auto) 4.0x10^3uL (1.8-7.7) Lymphocytes # (Auto) 1.8x10^3/uL (1.0-4.8) Monocytes # (Auto) 1.1x10^3/uL (0.0-1.1) Eosinophils # (Auto) 0.5x10^3/uL (0.0-0.7) Basophils # (Auto) 0.1x10^3/uL (0.0-0.2) Sodium Level 138mmol/L (136-145) Potassium Level 4.0mmol/L (3.5-5.1) Chloride Level 101mmol/L (98-107) Carbon Dioxide Level 30mmol/L (21-32) Anion Gap 7 (6-14) Blood Urea Nitrogen 39mg/dL (8-26) Creatinine 2.4mg/dL (0.7-1.3) Estimated GFR (Cockcroft-Gault) 32.1 BUN/Creatinine Ratio 16 (6-20) Glucose Level 203mg/dL (70-99) Calcium Level 9.5mg/dL (8.5-10.1) Phosphorus Level 3.7mg/dL (2.6-4.7) Magnesium Level 2.3mg/dL (1.8-2.4) Total Bilirubin 0.3mg/dL (0.2-1.0) Aspartate Amino Transf (AST/SGOT) 15U/L (15-37) Alanine Aminotransferase (ALT/SGPT) 21U/L (16-63) Alkaline Phosphatase 109U/L (46-116) Total Protein 7.0g/dL (6.4-8.2) Albumin 3.3g/dL (3.4-5.0) Albumin/Globulin Ratio 0.9 (1.0-1.7) Laboratory Tests Test 02/04/17 09:35 02/04/17 12:10 02/04/17 12:12 02/04/17 16:40 Troponin I Quantitative < 0.017ng/mL (0.000-0.055) Urine Protein 12.2mg/dL (Not Estab.) Urine Random Sodium 62mmol/L (Not Estab.) Urine Creatinine 105.1mg/dL (Not Estab.) Urine Protein/Creatinine Ratio 116mg/g creat (0-200) Glucose (Fingerstick) 201mg/dL (70-99) 222mg/dL (70-99) Test 02/04/17 21:33 02/05/17 04:25 02/05/17 07:31 Glucose (Fingerstick) 288mg/dL (70-99) 219mg/dL (70-99) White Blood Count 7.4x10^3/uL (4.0-11.0) Red Blood Count 4.40x10^6/uL (4.30-5.70) Hemoglobin 12.9g/dL (13.0-17.5) Hematocrit 39.0% (39.0-53.0) Mean Corpuscular Volume 89fL (79-100) Mean Corpuscular Hemoglobin 29pg (25-35) Mean Corpuscular Hemoglobin Concent 33g/dL (31-37) Red Cell Distribution Width 15.7% (11.5-14.5) Platelet Count 204x10^3/uL (140-400) Neutrophils (%) (Auto) 54% (31-73) Lymphocytes (%) (Auto) 24% (24-48) Monocytes (%) (Auto) 14% (0-9) Eosinophils (%) (Auto) 7% (0-3) Basophils (%) (Auto) 1% (0-3) Neutrophils # (Auto) 4.0x10^3uL (1.8-7.7) Lymphocytes # (Auto) 1.8x10^3/uL (1.0-4.8) Monocytes # (Auto) 1.1x10^3/uL (0.0-1.1) Eosinophils # (Auto) 0.5x10^3/uL (0.0-0.7) Basophils # (Auto) 0.1x10^3/uL (0.0-0.2) Sodium Level 138mmol/L (136-145) Potassium Level 4.0mmol/L (3.5-5.1) Chloride Level 101mmol/L (98-107) Carbon Dioxide Level 30mmol/L (21-32) Anion Gap 7 (6-14) Blood Urea Nitrogen 39mg/dL (8-26) Creatinine 2.4mg/dL (0.7-1.3) Estimated GFR (Cockcroft-Gault) 32.1 BUN/Creatinine Ratio 16 (6-20) Glucose Level 203mg/dL (70-99) Calcium Level 9.5mg/dL (8.5-10.1) Phosphorus Level 3.7mg/dL (2.6-4.7) Magnesium Level 2.3mg/dL (1.8-2.4) Total Bilirubin 0.3mg/dL (0.2-1.0) Aspartate Amino Transf (AST/SGOT) 15U/L (15-37) Alanine Aminotransferase (ALT/SGPT) 21U/L (16-63) Alkaline Phosphatase 109U/L (46-116) Total Protein 7.0g/dL (6.4-8.2) Albumin 3.3g/dL (3.4-5.0) Albumin/Globulin Ratio 0.9 (1.0-1.7) Medications Current Medications Morphine Sulfate 4 mg 1X ONCE IV Last administered on 02/03/17 19:22; Start 02/03/17 at 17:45; Stop 02/03/17 at 17:46; Status DC Ondansetron HCl (Zofran) 4 mg PRN Q8HRS PRN IV NAUSEA/VOMITING; Start 02/03/17 at 21:45; Stop 02/04/17 at 21:44; Status DC Morphine Sulfate 4 mg PRN Q2HR PRN IV SEVERE PAIN Last administered on 23:07; Start 02/03/17 at 21:45; Stop 02/04/17 at 21:44; Status DC Acetaminophen (Tylenol) 650 mg PRN Q4HRS PRN PO FEVER; Start 02/03/17 at 21:45 ; Stop 02/04/17 at 21:44; Status DC Nitroglycerin (Nitrostat) 0.4 mg PRN Q5MIN PRN SL CHEST PAIN; Start 02/03/17 at 21:45; Stop 02/04/17 at 21:44; Status DC Insulin Aspart (Novolog) 0-7 UNITS TIDWMEALS SQ Last administered on 02/05/17 07:53; Start 02/04/17 at 08:00 Dextrose (Dextrose 50%-Water Syringe) 12.5 gm PRN Q15MIN PRN IV SEE COMMENTS; Start 02/03/17 at 21:45 Aspirin (Children'S Aspirin) 324 mg 1X ONCE PO Last administered on 02/03/17 23:06; Start 02/03/17 at 23:00; Stop 02/03/17 at 23:01; Status DC Albuterol Sulfate (Ventolin Hfa) 1 puff Q4HRS PRN IH SHORTNESS OF BREATH; Start 02/04/17 at 08:45; Status UNV Amlodipine Besylate (Norvasc) 5 mg DAILY PO Last administered on 02/05/17 08: 52; Start 02/04/17 at 09:00 Fluticasone Propionate (Flonase) 2 spray DAILY NS Last administered on 08:51; Start 02/04/17 at 09:00 Acetaminophen/ Hydrocodone Bitart (Lortab 7.5/325) 1 tab PRN Q6HRS PRN PO PAIN ; Start 02/04/17 at 08:45 Insulin Detemir (Levemir) 40 units DAILY SQ Last administered on 02/05/17 09: 02; Start 02/04/17 at 09:00 Isosorbide Mononitrate (Imdur) 60 mg DAILY PO Last administered on 02/05/17 08 :51; Start 02/04/17 at 09:00 Linagliptin (Tradjenta) 5 mg DAILY PO Last administered on 02/05/17 08:52; Start 02/04/17 at 09:00 Metoprolol Succinate (Toprol Xl) 100 mg DAILY PO Last administered on 08:52; Start 02/04/17 at 09:00 Nitroglycerin (Nitrostat) 0.4 mg PRN Q5MIN PRN SL CHEST PAIN; Start 02/04/17 at 08:45 Spironolactone (Aldactone) 25 mg DAILY PO Last administered on 02/05/17 08:52 ; Start 02/04/17 at 09:00 Sucralfate (Carafate) 1 gm QIDACHS PO Last administered on 02/05/17 07:53; Start 02/04/17 at 11:30 Famotidine (Pepcid) 20 mg DAILY PO Last administered on 02/05/17 08:52; Start 02/04/17 at 09:00 Albuterol Sulfate (Ventolin Neb Soln) 2.5 mg PRN Q4HRS PRN NEB SHORTNESS OF BREATH; Start 02/04/17 at 09:00 Albuterol/ Ipratropium (Duoneb) 3 ml PRN QID PRN NEB dyspnea Last administered on 02/04/17 11:58; Start 02/04/17 at 09:15 Methylprednisolone Acetate (Depo-Medrol 40mg Vial) 40 mg 1X ONCE IM ; Start at 09:30; Stop 02/04/17 at 09:41; Status DC Bupivacaine HCl (Sensorcaine-Mpf 0.25%) 10 ml 1X ONCE IJ ; Start 02/04/17 at 09 :30; Stop 02/04/17 at 09:41; Status DC Acetaminophen/ Hydrocodone Bitart (Lortab 10/325) 1 tab PRN Q6HRS PRN PO PAIN; Start 02/04/17 at 09:30 Baclofen (Lioresal) 10 mg PRN Q6HRS PRN PO MUSCLE SPASMS; Start 02/04/17 at 09: 30 Lidocaine (Lidoderm) 1 patch DAILY TD Last administered on 02/05/17 08:53; Start 02/04/17 at 10:00 Multi-Ingred Cream/Lotion/Oil/ Oint 1 junie 1 junie BID TP Last administered on 08:53; Start 02/04/17 at 10:00 Magnesium Sulfate/ Dextrose (Magnesium Sulfate PREMIX 2GM) 50 ml @ 25 mls/hr PRN DAILY PRN IV for Mag < 1.7 on am labs; Start 02/04/17 at 10:30 Active Scripts Active Children's Aspirin (Aspirin) 81 Mg Tab.chew 324 Mg PO 1X Tradjenta (Linagliptin) 5 Mg Tablet 5 Mg PO DAILY Reported Levemir Flextouch (Insulin Detemir) 100 Unit/1 Ml Insuln.pen 50 SQ Lantus Solostar (Insulin Glargine,Hum.rec.anlog) 100 Unit/1 Ml Insuln.pen 0 SQ QHS Fluticasone Propionate Nasal [place] (Fluticasone Propionate) 16 Gm [place].susp 2 [place] NS DAILY Spironolactone 25 Mg Tablet 25 Mg PO DAILY NITROGLYCERIN SubLingual (Nitroglycerin) 0.4 Mg Tab.subl 0.4 Mg SL PRN Q5MIN PRN Niaspan (Niacin) 1,000 Mg Tab.er.24h 500 Mg PO HS Metoprolol Succinate ( Xl ) (Metoprolol Succinate) 100 Mg Tab.er.24h 100 Mg PO DAILY Amlodipine Besylate 5 Mg Tablet 5 Mg PO DAILY Tramadol Hcl 50 Mg Tablet 50 Mg PO PRN Q6HRS PRN Hydrocodone-Apap 7.5-325 (Hydrocodone Bit/Acetaminophen) 1 Each Tablet 1 Each PO PRN Q6HRS PRN Nephro-Macho Tablet (Folic Acid/Vitamin B Comp W-C) 0.8 Mg Tablet 0.8 Mg PO DAILY Sucralfate 1 Gm Tablet 1 Gm PO QIDACHS Ranitidine Hcl 150 Mg Tablet 150 Mg PO DAILY Isosorbide Mononitrate Er (Isosorbide Mononitrate) 60 Mg Tab.er.24h 60 Mg PO DAILY Albuterol Sulfate Hfa Inhaler (Albuterol Sulfate) 8.5 Gm Hfa.aer.ad 90 Mcg IH PRN Q4-6HRS PRN Iron (Ferrous Sulfate) 325 Mg Capsule.er 325 Mg PO DAILY Vitals/I & O Vital Sign - Last 24 Hours 02/04/17 02/04/17 02/04/17 02/04/17 10:13 10:14 10:14 11:40 Temp 97.8 97.8 Pulse 74 74 74 73 Resp 17 B/P 131/67 131/67 131/67 120/62 Pulse Ox 91 O2 Delivery Room Air 02/04/17 02/04/17 02/04/17 02/04/17 11:59 15:24 19:00 19:15 Temp 98.3 98.6 98.3 98.6 Pulse 98 86 Resp 16 18 B/P 113/63 128/64 Pulse Ox 97 92 93 O2 Delivery Room Air Room Air Room Air Room Air 02/04/17 02/05/17 02/05/17 02/05/17 23:00 03:21 07:15 08:30 Temp 98.7 98.3 98.7 98.7 98.3 98.7 Pulse 79 72 79 Resp 18 18 20 B/P 123/64 125/66 137/65 Pulse Ox 92 93 95 O2 Delivery Room Air Room Air Room Air Room Air 02/05/17 02/05/17 02/05/17 08:51 08:52 08:52 Pulse 79 79 79 B/P 137/65 137/65 137/65 Intake and Output 02/04/17 02/04/17 02/05/17 15:00 23:00 07:00 Intake Total 480 ml 2540 ml 120 ml Output Total 830 ml 750 ml 400 ml Balance -350 ml 1790 ml -280 ml CINDY NELSON MD Feb 05, 2017 09:06
--- NOTE | 2017-02-05 09:17 | PDOC ---
SUBJECTIVE ROS CKD III Doing better overall CVS: no Orthopnea, no CP RESP: no SOB, no FAIRCHILD GI: no Nausea, no Vomiting : no Dysuria, no Urgency OBJECTIVE Vital Signs Vital Signs Date Time Temp Pulse Resp B/P Pulse Ox O2 Delivery O2 Flow Rate FiO2 02/05/17 08:52 79 137/65 02/05/17 08:30 Room Air 02/05/17 07:15 98.7 20 95 98.7 I & 0 Intake and Output 02/05/17 07:00 Intake Total 3140 ml Output Total 1980 ml Balance 1160 ml Intake Oral 3140 ml Output Urine Total 1980 ml PHYSICAL EXAM Physical Exam General Appearance: Awake Alert Oriented x 3 In no Distress - flat affect Eyes: VIsion Unchanged Conjunctiva Normal EN: No EN Drainage Mucous Memb. dryish Neck: no JVD no JVP Supple no Thyromegaly; thic neck CVS: S1 S2 no Murmur No Gallop No Rub + Edema Resp: no Rales no Rhonchi no Acc. Muscle use GI: BAS +ve NO Bruit Non Tender Non Distended Obese : no CVA tenderness; no Suprapubic Tenderness SKIN: no Rashes Breast Exam deferred; Nails show significant Clubbing Assessment & Plan ARF/ VMN - ? due to ^ed Lasix intake vs this may be hisnew baseline. Currently non-Oliguric - watch off of IVF for now: (UA was benign) Current FLuid and E- lyte status does not necessitate emergent need for Dialysis. Will re-evaluate for Dialysis in am CKD III (DM/ HTNsive /NS) - Baseline Creat was 2.0 - Is this his new baseline Oliguria - resolved ? ^ed Protein gap - Unclear Etio - checking for Paraprotein ? Vol Dpeltion - better with IVF as ordered HTN: Current BP meds reviewed. See orders for changes. Discussed Plan of Care and prognosis etc. at length with pt and F/up with Dr Love with 24-hr Urine results COMMENT/RELEVANT DATA Meds Current Medications Medications (Trade) Dose Ordered Sig/Jalyn Start Time Stop Time Status Last Admin Dose Admin Acetaminophen (Tylenol) 650 mg PRN Q4HRS PRN 02/03/17 21:45 02/04/17 21:44 DC Acetaminophen/ Hydrocodone Bitart (Lortab 10/325) 1 tab PRN Q6HRS PRN 02/04/17 09:30 Acetaminophen/ Hydrocodone Bitart (Lortab 7.5/325) 1 tab PRN Q6HRS PRN 02/04/17 08:45 Albuterol Sulfate (Ventolin Hfa) 1 puff Q4HRS PRN 02/04/17 08:45 UNV Albuterol Sulfate (Ventolin Neb Soln) 2.5 mg PRN Q4HRS PRN 02/04/17 09:00 Albuterol/ Ipratropium (Duoneb) 3 ml PRN QID PRN 02/04/17 09:15 02/04/17 11:58 3 ML Amlodipine Besylate (Norvasc) 5 mg DAILY 02/04/17 09:00 02/05/17 08:52 5 MG Aspirin (Children'S Aspirin) 324 mg 1X ONCE 02/03/17 23:00 02/03/17 23:01 DC 02/03/17 23:06 324 MG Baclofen (Lioresal) 10 mg PRN Q6HRS PRN 02/04/17 09:30 Bupivacaine HCl (Sensorcaine-Mpf 0.25%) 10 ml 1X ONCE 02/04/17 09:30 02/04/17 09:41 DC Dextrose (Dextrose 50%-Water Syringe) 12.5 gm PRN Q15MIN PRN 02/03/17 21:45 Famotidine (Pepcid) 20 mg DAILY 02/04/17 09:00 02/05/17 08:52 20 MG Fluticasone Propionate (Flonase) 2 spray DAILY 02/04/17 09:00 02/05/17 08:51 2 SPRAY Insulin Aspart (Novolog) 0-7 UNITS TIDWMEALS 02/04/17 08:00 02/05/17 07:53 4 UNITS Insulin Detemir (Levemir) 40 units DAILY 02/04/17 09:00 02/05/17 09:02 40 UNITS Isosorbide Mononitrate (Imdur) 60 mg DAILY 02/04/17 09:00 02/05/17 08:51 60 MG Lidocaine (Lidoderm) 1 patch DAILY 02/04/17 10:00 02/05/17 08:53 1 PATCH Linagliptin (Tradjenta) 5 mg DAILY 02/04/17 09:00 02/05/17 08:52 5 MG Magnesium Sulfate/ Dextrose (Magnesium Sulfate PREMIX 2GM) 50 ml @ 25 mls/hr PRN DAILY PRN 02/04/17 10:30 Methylprednisolone Acetate (Depo-Medrol 40mg Vial) 40 mg 1X ONCE 02/04/17 09:30 02/04/17 09:41 DC Metoprolol Succinate (Toprol Xl) 100 mg DAILY 02/04/17 09:00 02/05/17 08:52 100 MG Morphine Sulfate 4 mg PRN Q2HR PRN 02/03/17 21:45 02/04/17 21:44 DC 02/03/17 23:07 4 MG Multi-Ingred Cream/Lotion/Oil/ Oint 1 junie 1 junie BID 02/04/17 10:00 02/05/17 08:53 1 JUNIE Nitroglycerin (Nitrostat) 0.4 mg PRN Q5MIN PRN 02/04/17 08:45 Ondansetron HCl (Zofran) 4 mg PRN Q8HRS PRN 02/03/17 21:45 02/04/17 21:44 DC Spironolactone (Aldactone) 25 mg DAILY 02/04/17 09:00 02/05/17 08:52 25 MG Sucralfate (Carafate) 1 gm QIDACHS 02/04/17 11:30 02/05/17 07:53 1 GM Lab Laboratory Tests Test 02/04/17 09:35 02/04/17 12:10 02/04/17 12:12 02/04/17 16:40 Troponin I Quantitative < 0.017ng/mL (0.000-0.055) Urine Protein 12.2mg/dL (Not Estab.) Urine Random Sodium 62mmol/L (Not Estab.) Urine Creatinine 105.1mg/dL (Not Estab.) Urine Protein/Creatinine Ratio 116mg/g creat (0-200) Glucose (Fingerstick) 201mg/dL (70-99) 222mg/dL (70-99) Test 02/04/17 21:33 02/05/17 04:25 02/05/17 07:31 Glucose (Fingerstick) 288mg/dL (70-99) 219mg/dL (70-99) White Blood Count 7.4x10^3/uL (4.0-11.0) Red Blood Count 4.40x10^6/uL (4.30-5.70) Hemoglobin 12.9g/dL (13.0-17.5) Hematocrit 39.0% (39.0-53.0) Mean Corpuscular Volume 89fL (79-100) Mean Corpuscular Hemoglobin 29pg (25-35) Mean Corpuscular Hemoglobin Concent 33g/dL (31-37) Red Cell Distribution Width 15.7% (11.5-14.5) Platelet Count 204x10^3/uL (140-400) Neutrophils (%) (Auto) 54% (31-73) Lymphocytes (%) (Auto) 24% (24-48) Monocytes (%) (Auto) 14% (0-9) Eosinophils (%) (Auto) 7% (0-3) Basophils (%) (Auto) 1% (0-3) Neutrophils # (Auto) 4.0x10^3uL (1.8-7.7) Lymphocytes # (Auto) 1.8x10^3/uL (1.0-4.8) Monocytes # (Auto) 1.1x10^3/uL (0.0-1.1) Eosinophils # (Auto) 0.5x10^3/uL (0.0-0.7) Basophils # (Auto) 0.1x10^3/uL (0.0-0.2) Sodium Level 138mmol/L (136-145) Potassium Level 4.0mmol/L (3.5-5.1) Chloride Level 101mmol/L (98-107) Carbon Dioxide Level 30mmol/L (21-32) Anion Gap 7 (6-14) Blood Urea Nitrogen 39mg/dL (8-26) Creatinine 2.4mg/dL (0.7-1.3) Estimated GFR (Cockcroft-Gault) 32.1 BUN/Creatinine Ratio 16 (6-20) Glucose Level 203mg/dL (70-99) Calcium Level 9.5mg/dL (8.5-10.1) Phosphorus Level 3.7mg/dL (2.6-4.7) Magnesium Level 2.3mg/dL (1.8-2.4) Total Bilirubin 0.3mg/dL (0.2-1.0) Aspartate Amino Transf (AST/SGOT) 15U/L (15-37) Alanine Aminotransferase (ALT/SGPT) 21U/L (16-63) Alkaline Phosphatase 109U/L (46-116) Total Protein 7.0g/dL (6.4-8.2) Albumin 3.3g/dL (3.4-5.0) Albumin/Globulin Ratio 0.9 (1.0-1.7) JOHANNY MURPHY MD Feb 05, 2017 09:16
[2017-02-05 11:15] VITALS: BP 130/63
--- NOTE | 2017-02-05 14:00 | PDOC ---
PROGRESS NOTES Subjective Subjective Patient denies any complaints. Wants to go home. Objective Objective Vital Signs Date Time Temp Pulse Resp B/P Pulse Ox O2 Delivery O2 Flow Rate FiO2 02/05/17 11:15 98.6 76 18 130/63 96 Room Air 98.6 Intake and Output 02/05/17 07:00 Intake Total 3140 ml Output Total 1980 ml Balance 1160 ml Intake Oral 3140 ml Output Urine Total 1980 ml Physical Exam Physical Exam GENERAL: patient laying in bed, no acute distress HEART: regular rate, no murmur noted LUNGS: clear to auscultation bilaterally, no wheezing noted EXTREMITIES: no pedal edema bilaterally Assessment Assessment Problems Medical Problems: (1) Abdominal pain Status: Acute (2) Abdominal pain Status: Acute (3) Back pain Status: Acute (4) Back pain Status: Acute (5) Chest pain Status: Acute Plan Plan of Care Patient's symptoms appear to be noncardiac in origin. Stable from cardiac standpoint. Will continue to monitor. Agree with present plan. Comment Review of Relevant I have reviewed the following items melissa (where applicable) has been applied. Labs Laboratory Tests Test 02/03/17 19:05 02/03/17 19:09 02/03/17 19:45 02/04/17 03:37 Urine Collection Type Unknown Urine Color Yellow Urine Clarity Cloudy Urine pH 6.5 Urine Specific [place] <=1.005 Urine Protein Negativemg/dL (NEG-TRACE) Urine Glucose (UA) Negativemg/dL (NEG) Urine Ketones (Stick) Negativemg/dL (NEG) Urine Blood Negative (NEG) Urine Nitrite Negative (NEG) Urine Bilirubin Negative (NEG) Urine Urobilinogen Dipstick 0.2mg/dL (0.2 mg/dL) Urine Leukocyte Esterase Negative (NEG) Urine RBC 0/HPF (0-2) Urine WBC 0/HPF (0-4) Urine Bacteria 0/HPF (0-FEW) Urine Hyaline Casts Few/HPF White Blood Count 8.0x10^3/uL (4.0-11.0) Red Blood Count 4.55x10^6/uL (4.30-5.70) Hemoglobin 13.6g/dL (13.0-17.5) Hematocrit 41.4% (39.0-53.0) Mean Corpuscular Volume 91fL (79-100) Mean Corpuscular Hemoglobin 30pg (25-35) Mean Corpuscular Hemoglobin Concent 33g/dL (31-37) Red Cell Distribution Width 16.3% (11.5-14.5) Platelet Count 199x10^3/uL (140-400) Neutrophils (%) (Auto) 59% (31-73) Lymphocytes (%) (Auto) 22% (24-48) Monocytes (%) (Auto) 11% (0-9) Eosinophils (%) (Auto) 7% (0-3) Basophils (%) (Auto) 1% (0-3) Neutrophils # (Auto) 4.7x10^3uL (1.8-7.7) Lymphocytes # (Auto) 1.8x10^3/uL (1.0-4.8) Monocytes # (Auto) 0.9x10^3/uL (0.0-1.1) Eosinophils # (Auto) 0.5x10^3/uL (0.0-0.7) Basophils # (Auto) 0.1x10^3/uL (0.0-0.2) Sodium Level 137mmol/L (136-145) Potassium Level 4.3mmol/L (3.5-5.1) Chloride Level 101mmol/L (98-107) Carbon Dioxide Level 31mmol/L (21-32) Anion Gap 5 (6-14) Blood Urea Nitrogen 41mg/dL (8-26) Creatinine 2.4mg/dL (0.7-1.3) Estimated GFR (Cockcroft-Gault) 32.1 BUN/Creatinine Ratio 17 (6-20) Glucose Level 233mg/dL (70-99) Calcium Level 10.0mg/dL (8.5-10.1) Total Bilirubin 0.2mg/dL (0.2-1.0) Aspartate Amino Transf (AST/SGOT) 15U/L (15-37) Alanine Aminotransferase (ALT/SGPT) 23U/L (16-63) Alkaline Phosphatase 149U/L (46-116) Troponin I Quantitative < 0.017ng/mL (0.000-0.055) < 0.017ng/mL (0.000-0.055) Total Protein 7.5g/dL (6.4-8.2) Albumin 3.6g/dL (3.4-5.0) Albumin/Globulin Ratio 0.9 (1.0-1.7) Lipase 193U/L (73-393) Test 02/04/17 07:46 02/04/17 09:35 02/04/17 12:10 02/04/17 12:12 Glucose (Fingerstick) 168mg/dL (70-99) 201mg/dL (70-99) Troponin I Quantitative < 0.017ng/mL (0.000-0.055) Urine Protein 12.2mg/dL (Not Estab.) Urine Random Sodium 62mmol/L (Not Estab.) Urine Creatinine 105.1mg/dL (Not Estab.) Urine Protein/Creatinine Ratio 116mg/g creat (0-200) Test 02/04/17 16:40 02/04/17 21:33 02/05/17 04:25 02/05/17 07:31 Glucose (Fingerstick) 222mg/dL (70-99) 288mg/dL (70-99) 219mg/dL (70-99) White Blood Count 7.4x10^3/uL (4.0-11.0) Red Blood Count 4.40x10^6/uL (4.30-5.70) Hemoglobin 12.9g/dL (13.0-17.5) Hematocrit 39.0% (39.0-53.0) Mean Corpuscular Volume 89fL (79-100) Mean Corpuscular Hemoglobin 29pg (25-35) Mean Corpuscular Hemoglobin Concent 33g/dL (31-37) Red Cell Distribution Width 15.7% (11.5-14.5) Platelet Count 204x10^3/uL (140-400) Neutrophils (%) (Auto) 54% (31-73) Lymphocytes (%) (Auto) 24% (24-48) Monocytes (%) (Auto) 14% (0-9) Eosinophils (%) (Auto) 7% (0-3) Basophils (%) (Auto) 1% (0-3) Neutrophils # (Auto) 4.0x10^3uL (1.8-7.7) Lymphocytes # (Auto) 1.8x10^3/uL (1.0-4.8) Monocytes # (Auto) 1.1x10^3/uL (0.0-1.1) Eosinophils # (Auto) 0.5x10^3/uL (0.0-0.7) Basophils # (Auto) 0.1x10^3/uL (0.0-0.2) Sodium Level 138mmol/L (136-145) Potassium Level 4.0mmol/L (3.5-5.1) Chloride Level 101mmol/L (98-107) Carbon Dioxide Level 30mmol/L (21-32) Anion Gap 7 (6-14) Blood Urea Nitrogen 39mg/dL (8-26) Creatinine 2.4mg/dL (0.7-1.3) Estimated GFR (Cockcroft-Gault) 32.1 BUN/Creatinine Ratio 16 (6-20) Glucose Level 203mg/dL (70-99) Calcium Level 9.5mg/dL (8.5-10.1) Phosphorus Level 3.7mg/dL (2.6-4.7) Magnesium Level 2.3mg/dL (1.8-2.4) Total Bilirubin 0.3mg/dL (0.2-1.0) Aspartate Amino Transf (AST/SGOT) 15U/L (15-37) Alanine Aminotransferase (ALT/SGPT) 21U/L (16-63) Alkaline Phosphatase 109U/L (46-116) Total Protein 7.0g/dL (6.4-8.2) Albumin 3.3g/dL (3.4-5.0) Albumin/Globulin Ratio 0.9 (1.0-1.7) Test 02/05/17 11:10 Glucose (Fingerstick) 212mg/dL (70-99) Laboratory Tests Test 02/04/17 16:40 02/04/17 21:33 02/05/17 04:25 02/05/17 07:31 Glucose (Fingerstick) 222mg/dL (70-99) 288mg/dL (70-99) 219mg/dL (70-99) White Blood Count 7.4x10^3/uL (4.0-11.0) Red Blood Count 4.40x10^6/uL (4.30-5.70) Hemoglobin 12.9g/dL (13.0-17.5) Hematocrit 39.0% (39.0-53.0) Mean Corpuscular Volume 89fL (79-100) Mean Corpuscular Hemoglobin 29pg (25-35) Mean Corpuscular Hemoglobin Concent 33g/dL (31-37) Red Cell Distribution Width 15.7% (11.5-14.5) Platelet Count 204x10^3/uL (140-400) Neutrophils (%) (Auto) 54% (31-73) Lymphocytes (%) (Auto) 24% (24-48) Monocytes (%) (Auto) 14% (0-9) Eosinophils (%) (Auto) 7% (0-3) Basophils (%) (Auto) 1% (0-3) Neutrophils # (Auto) 4.0x10^3uL (1.8-7.7) Lymphocytes # (Auto) 1.8x10^3/uL (1.0-4.8) Monocytes # (Auto) 1.1x10^3/uL (0.0-1.1) Eosinophils # (Auto) 0.5x10^3/uL (0.0-0.7) Basophils # (Auto) 0.1x10^3/uL (0.0-0.2) Sodium Level 138mmol/L (136-145) Potassium Level 4.0mmol/L (3.5-5.1) Chloride Level 101mmol/L (98-107) Carbon Dioxide Level 30mmol/L (21-32) Anion Gap 7 (6-14) Blood Urea Nitrogen 39mg/dL (8-26) Creatinine 2.4mg/dL (0.7-1.3) Estimated GFR (Cockcroft-Gault) 32.1 BUN/Creatinine Ratio 16 (6-20) Glucose Level 203mg/dL (70-99) Calcium Level 9.5mg/dL (8.5-10.1) Phosphorus Level 3.7mg/dL (2.6-4.7) Magnesium Level 2.3mg/dL (1.8-2.4) Total Bilirubin 0.3mg/dL (0.2-1.0) Aspartate Amino Transf (AST/SGOT) 15U/L (15-37) Alanine Aminotransferase (ALT/SGPT) 21U/L (16-63) Alkaline Phosphatase 109U/L (46-116) Total Protein 7.0g/dL (6.4-8.2) Albumin 3.3g/dL (3.4-5.0) Albumin/Globulin Ratio 0.9 (1.0-1.7) Test 02/05/17 11:10 Glucose (Fingerstick) 212mg/dL (70-99) Medications Current Medications Morphine Sulfate 4 mg 1X ONCE IV Last administered on 02/03/17 19:22; Start 02/03/17 at 17:45; Stop 02/03/17 at 17:46; Status DC Ondansetron HCl (Zofran) 4 mg PRN Q8HRS PRN IV NAUSEA/VOMITING; Start 02/03/17 at 21:45; Stop 02/04/17 at 21:44; Status DC Morphine Sulfate 4 mg PRN Q2HR PRN IV SEVERE PAIN Last administered on 23:07; Start 02/03/17 at 21:45; Stop 02/04/17 at 21:44; Status DC Acetaminophen (Tylenol) 650 mg PRN Q4HRS PRN PO FEVER; Start 02/03/17 at 21:45 ; Stop 02/04/17 at 21:44; Status DC Nitroglycerin (Nitrostat) 0.4 mg PRN Q5MIN PRN SL CHEST PAIN; Start 02/03/17 at 21:45; Stop 02/04/17 at 21:44; Status DC Insulin Aspart (Novolog) 0-7 UNITS TIDWMEALS SQ Last administered on 02/05/17 11:44; Start 02/04/17 at 08:00 Dextrose (Dextrose 50%-Water Syringe) 12.5 gm PRN Q15MIN PRN IV SEE COMMENTS; Start 02/03/17 at 21:45 Aspirin (Children'S Aspirin) 324 mg 1X ONCE PO Last administered on 02/03/17 23:06; Start 02/03/17 at 23:00; Stop 02/03/17 at 23:01; Status DC Albuterol Sulfate (Ventolin Hfa) 1 puff Q4HRS PRN IH SHORTNESS OF BREATH; Start 02/04/17 at 08:45; Status UNV Amlodipine Besylate (Norvasc) 5 mg DAILY PO Last administered on 02/05/17 08: 52; Start 02/04/17 at 09:00 Fluticasone Propionate (Flonase) 2 spray DAILY NS Last administered on 08:51; Start 02/04/17 at 09:00 Acetaminophen/ Hydrocodone Bitart (Lortab 7.5/325) 1 tab PRN Q6HRS PRN PO PAIN ; Start 02/04/17 at 08:45 Insulin Detemir (Levemir) 40 units DAILY SQ Last administered on 02/05/17 09: 02; Start 02/04/17 at 09:00 Isosorbide Mononitrate (Imdur) 60 mg DAILY PO Last administered on 02/05/17 08 :51; Start 02/04/17 at 09:00 Linagliptin (Tradjenta) 5 mg DAILY PO Last administered on 02/05/17 08:52; Start 02/04/17 at 09:00 Metoprolol Succinate (Toprol Xl) 100 mg DAILY PO Last administered on 08:52; Start 02/04/17 at 09:00 Nitroglycerin (Nitrostat) 0.4 mg PRN Q5MIN PRN SL CHEST PAIN; Start 02/04/17 at 08:45 Spironolactone (Aldactone) 25 mg DAILY PO Last administered on 02/05/17 08:52 ; Start 02/04/17 at 09:00 Sucralfate (Carafate) 1 gm QIDACHS PO Last administered on 02/05/17 11:43; Start 02/04/17 at 11:30 Famotidine (Pepcid) 20 mg DAILY PO Last administered on 02/05/17 08:52; Start 02/04/17 at 09:00 Albuterol Sulfate (Ventolin Neb Soln) 2.5 mg PRN Q4HRS PRN NEB SHORTNESS OF BREATH; Start 02/04/17 at 09:00 Albuterol/ Ipratropium (Duoneb) 3 ml PRN QID PRN NEB dyspnea Last administered on 02/04/17 11:58; Start 02/04/17 at 09:15 Methylprednisolone Acetate (Depo-Medrol 40mg Vial) 40 mg 1X ONCE IM ; Start at 09:30; Stop 02/04/17 at 09:41; Status DC Bupivacaine HCl (Sensorcaine-Mpf 0.25%) 10 ml 1X ONCE IJ ; Start 02/04/17 at 09 :30; Stop 02/04/17 at 09:41; Status DC Acetaminophen/ Hydrocodone Bitart (Lortab 10/325) 1 tab PRN Q6HRS PRN PO PAIN; Start 02/04/17 at 09:30 Baclofen (Lioresal) 10 mg PRN Q6HRS PRN PO MUSCLE SPASMS; Start 02/04/17 at 09: 30 Lidocaine (Lidoderm) 1 patch DAILY TD Last administered on 02/05/17 08:53; Start 02/04/17 at 10:00 Multi-Ingred Cream/Lotion/Oil/ Oint 1 junie 1 junie BID TP Last administered on 08:53; Start 02/04/17 at 10:00 Magnesium Sulfate/ Dextrose (Magnesium Sulfate PREMIX 2GM) 50 ml @ 25 mls/hr PRN DAILY PRN IV for Mag < 1.7 on am labs; Start 02/04/17 at 10:30 Active Scripts Active Children's Aspirin (Aspirin) 81 Mg Tab.chew 324 Mg PO 1X Tradjenta (Linagliptin) 5 Mg Tablet 5 Mg PO DAILY Reported Levemir Flextouch (Insulin Detemir) 100 Unit/1 Ml Insuln.pen 50 SQ Lantus Solostar (Insulin Glargine,Hum.rec.anlog) 100 Unit/1 Ml Insuln.pen 0 SQ QHS Fluticasone Propionate Nasal [place] (Fluticasone Propionate) 16 Gm [place].susp 2 [place] NS DAILY Spironolactone 25 Mg Tablet 25 Mg PO DAILY NITROGLYCERIN SubLingual (Nitroglycerin) 0.4 Mg Tab.subl 0.4 Mg SL PRN Q5MIN PRN Niaspan (Niacin) 1,000 Mg Tab.er.24h 500 Mg PO HS Metoprolol Succinate ( Xl ) (Metoprolol Succinate) 100 Mg Tab.er.24h 100 Mg PO DAILY Amlodipine Besylate 5 Mg Tablet 5 Mg PO DAILY Tramadol Hcl 50 Mg Tablet 50 Mg PO PRN Q6HRS PRN Hydrocodone-Apap 7.5-325 (Hydrocodone Bit/Acetaminophen) 1 Each Tablet 1 Each PO PRN Q6HRS PRN Nephro-Macho Tablet (Folic Acid/Vitamin B Comp W-C) 0.8 Mg Tablet 0.8 Mg PO DAILY Sucralfate 1 Gm Tablet 1 Gm PO QIDACHS Ranitidine Hcl 150 Mg Tablet 150 Mg PO DAILY Isosorbide Mononitrate Er (Isosorbide Mononitrate) 60 Mg Tab.er.24h 60 Mg PO DAILY Albuterol Sulfate Hfa Inhaler (Albuterol Sulfate) 8.5 Gm Hfa.aer.ad 90 Mcg IH PRN Q4-6HRS PRN Iron (Ferrous Sulfate) 325 Mg Capsule.er 325 Mg PO DAILY Vitals/I & O Vital Sign - Last 24 Hours 02/04/17 02/04/17 02/04/17 02/04/17 15:24 19:00 19:15 23:00 Temp 98.3 98.6 98.7 98.3 98.6 98.7 Pulse 98 86 79 Resp 16 18 18 B/P 113/63 128/64 123/64 Pulse Ox 92 93 92 O2 Delivery Room Air Room Air Room Air Room Air 02/05/17 02/05/17 02/05/17 02/05/17 03:21 07:15 08:13 08:30 Temp 98.3 98.7 98.3 98.7 Pulse 72 79 Resp 18 20 B/P 125/66 137/65 Pulse Ox 93 95 O2 Delivery Room Air Room Air Room Air Room Air 02/05/17 02/05/17 02/05/17 02/05/17 08:51 08:52 08:52 11:15 Temp 98.6 98.6 Pulse 79 79 79 76 Resp 18 B/P 137/65 137/65 137/65 130/63 Pulse Ox 96 O2 Delivery Room Air Intake and Output 02/04/17 02/04/17 02/05/17 15:00 23:00 07:00 Intake Total 480 ml 2540 ml 120 ml Output Total 830 ml 750 ml 400 ml Balance -350 ml 1790 ml -280 ml ORIANA ANTONIO MD Feb 05, 2017 14:00
[2017-02-05 15:25] LABS: KAPPA LAMBDA RATIO 1.22 (0.26-1.65)
[2017-02-06 16:19] LABS: ALPHA 1 0.2 g/dL (0.0-0.4); ALPHA 2 0.8 g/dL (0.4-1.0); BETA 1.3 g/dL (0.7-1.3); GAMMA 0.8 g/dL (0.4-1.8); M-SPIKE Not Observed g/dL (Not Observed); PROTEIN TOTAL 6.6 g/dL (6.0-8.5)
[2017-02-06 19:17] LABS: IMMUNOGLOBULIN A 348 mg/dL (61-437); IMMUNOGLOBULIN G 933 mg/dL (700-1600); IMMUNOGLOBULIN M 20 mg/dL (15-143)
[2017-02-08 16:22] LABS: GAMMA UR 22.6 % (.); M-SPIKE, % Not Observed % (Not Observed); PROTEIN UR 14.2 mg/dL (Not Estab.)
== END 2017-02-05 14:36 | disposition home or self-care (01) | DRG 205 ==
LOC: ER 17:04 → 5 NORTH 21:30
PROVIDERS: ADMIT Internal Medicine Hematology & Oncology; ATTEND Internal Medicine Hematology & Oncology
DX: M94.0 Chondrocostal junction syndrome [Tietze] (principal); N17.0 Acute kidney failure with tubular necrosis; Z68.43 Body mass index [BMI] 50.0-59.9, adult; I13.0 Hypertensive heart and chronic kidney disease with heart failure and stage 1 through stage 4 chronic kidney disease, or unspecified chronic kidney disease; Z68.41 Body mass index [BMI] 40.0-44.9, adult; N18.4 Chronic kidney disease, stage 4 (severe); E11.22 Type 2 diabetes mellitus with diabetic chronic kidney disease; E66.01 Morbid (severe) obesity due to excess calories; E78.00 Pure hypercholesterolemia, unspecified; E78.5 Hyperlipidemia, unspecified; I25.10 Atherosclerotic heart disease of native coronary artery without angina pectoris; I27.2 Other secondary pulmonary hypertension; I48.91 Unspecified atrial fibrillation; I50.9 Heart failure, unspecified; M19.90 Unspecified osteoarthritis, unspecified site; M54.5 Low back pain; J44.9 Chronic obstructive pulmonary disease, unspecified; M10.9 Gout, unspecified; M51.37 Other intervertebral disc degeneration, lumbosacral region; Z82.49 Family history of ischemic heart disease and other diseases of the circulatory system; Z83.3 Family history of diabetes mellitus; Z87.891 Personal history of nicotine dependence; Z95.5 Presence of coronary angioplasty implant and graft
CPT/HCPCS: 36415; 71010; 74176; 76770; 80053; 81001; 82570; 82947; 83036; 83520; 83690; 83735; 84100; 84156; 84165; 84166; 84300; 84484; 85027; 86334; 93005; 94250; 94640; 96374; J1815; J2270; J7620; 99285-25

== ENCOUNTER 2018-03-20 14:24 | Emergency (ER) | payer MEDICARE, OTHER ==
[2018-03-20 15:17] LABS: POC GLUCOSE 100 mg/dL (70-99)
[2018-03-20 15:36] LABS: ADD MAN DIFF? NO
[2018-03-20 15:39] LABS: BASO % 0 % (0-3); EOS # 0.3 x10^3/uL (0.0-0.7); EOS % 5 % (0-3); HEMOGLOBIN 13.4 g/dL (13.0-17.5); LYMPH # 1.5 x10^3/uL (1.0-4.8); LYMPH % 23 % (24-48); MEAN CORPUSCULAR HEMOGLOBIN 30 pg (25-35); MEAN CORPUSCULAR HGB CONC 34 g/dL (31-37); MEAN CORPUSCULAR VOLUME 89 fL (79-100); MONO # 0.7 x10^3/uL (0.0-1.1); MONO % 11 % (0-9); NEUT # 3.9 x10^3uL (1.8-7.7); NEUT % 61 % (31-73); PLATELET COUNT 235 x10^3/uL (140-400); RED CELL DISTRIBUTION WIDTH 14.9 % (11.5-14.5); WHITE BLOOD COUNT 6.4 x10^3/uL (4.0-11.0)
[2018-03-20 15:59] LABS: ANION GAP 11 (6-14); BLOOD UREA NITROGEN 20 mg/dL (8-26); BUN/CREATININE RATIO 12 (6-20); CALCIUM 9.3 mg/dL (8.5-10.1); CARBON DIOXIDE 26 mmol/L (21-32); CHLORIDE 103 mmol/L (98-107); CREATININE 1.7 mg/dL (0.7-1.3); GFR 47.7; GLUCOSE 119 mg/dL (70-99); POTASSIUM 4.3 mmol/L (3.5-5.1); SODIUM 140 mmol/L (136-145)
[2018-03-20 16:00] LABS: TROPONINI < 0.017 ng/mL (0.000-0.055)
[2018-03-20 16:03] LABS: ALBUMIN 3.5 g/dL (3.4-5.0); ALBUMIN/GLOBULIN RATIO 0.9 (1.0-1.7); ALK PHOS 110 U/L (46-116); ALT (SGPT) 18 U/L (16-63); AST (SGOT) 11 U/L (15-37); LIPASE 110 U/L (73-393); TOTAL BILIRUBIN 0.4 mg/dL (0.2-1.0); TOTAL PROTEIN 7.4 g/dL (6.4-8.2)
[2018-03-20] MEDS: MINERAL OIL 133 ML ENEMA. PR (16:20)
[2018-03-20 16:49] LABS: BILIRUBIN,URINE NEGATIVE (NEG); CLARITY,URINE CLEAR; COLOR,URINE YELLOW; GLUCOSE,URINE NEGATIVE (NEG); NITRITE,URINE NEGATIVE (NEG); PROTEIN,URINE 30 mg/dL (NEG-TRACE)
[2018-03-20 17:01] LABS: RBC,URINE 0 /HPF (0-2)
[2018-03-20 17:02] LABS: BACTERIA,URINE 0 /HPF (0-FEW); SQUAMOUS EPITHELIAL CELL,UR OCC /LPF; WBC,URINE OCC /HPF (0-4)
== END 2018-03-20 17:52 | disposition home or self-care (01) ==
LOC: ER 17:52
DX: R10.84 Generalized abdominal pain (principal); K59.00 Constipation, unspecified; J44.9 Chronic obstructive pulmonary disease, unspecified; E78.00 Pure hypercholesterolemia, unspecified; I25.10 Atherosclerotic heart disease of native coronary artery without angina pectoris; Z90.49 Acquired absence of other specified parts of digestive tract; Z95.5 Presence of coronary angioplasty implant and graft
CPT/HCPCS: 36415; 71045; 74176; 80053; 81001; 82962; 83690; 84484; 85025; 93005; 99285-25

== ENCOUNTER 2018-06-05 19:27 | Emergency (ER) | payer OTHER ==
[~2018-06-05] VITALS: Ht 172.7 cm; Wt 131.1 kg
[~2018-06-05 19:27] MED LIST changes: -ASPI325T4 PO; +ASPI325T8 PO; -ASPI81TA44 PO; +ASPI81TA59 PO; -LINA5TAB PO; +LINA5TAB4 PO; +METO-247 PO; -METO100T11 PO; +NITR0.4T22 SL; -NITR0.4T6 SL; +POLY17PO29 PO; -POTA10TA10 PO; +POTA10TA12 PO; -SPIR25TA3 PO; +SPIR25TA5 PO
[2018-06-05] MEDS ORDERED: DEXTROSE 50% 25 GM / 50ML DISP.SYRIN. IV ONE ×2 (19:34→20:00)
[2018-06-05] MEDS ORDERED: IV DEXTROSE 5%-LACT RINGERS 1,000 ML IV ONE (20:00)
--- NOTE | 2018-06-05 20:02 | PHYS DOC ---
Past Medical History Past Medical History: Arthritis, Asthma, Bronchitis, CAD, COPD, Diabetes-Type II, High Cholesterol, Heart Disease, Hypertension, Renal Disease, Other Additional Past Medical Histor: "Kidney trouble.", hemmorhoids Past Surgical History: Angioplasty, Cholecystectomy, Other Additional Past Surgical Histo: Umbilical hernia, Cardiac stent x 4. Smoking: Cigarettes, Quit Greater Than 1 Year Alcohol Use: None Drug Use: None Adult General Chief Complaint Chief Complaint: ALTERED MENTAL STATUS HPI HPI Patient is a 78-year-old male who presents to the emergency department for evaluation. He was reportedly found by his family at home, with combativeness, questionable diaphoresis, and altered mental status. EMS found the blood sugar of 70, the patient's family states he normally runs in the 200s. EMS gave the patient food, and he was reportedly not combative during transport. The patient is somewhat somnolent, but awake and arousable currently. He is able to follow commands without significant difficulties. The patient denies any pain. His blood glucose was found to be 15 emergency department and has been given juice and dextrose. He is still somewhat somnolent but arousable. He denies any complaints of pain. There are no alleviating or exacerbating factors to his symptoms. The patient states she takes shots only for his diabetes does not appear to be on any oral hypoglycemics. Review of Systems Review of Systems Constitutional: Denies fever or chills [] Eyes: Denies change in visual acuity, redness, or eye pain [] HENT: Denies nasal congestion or sore throat [] Respiratory: Denies cough or shortness of breath [] Cardiovascular: The patient denies any shortness of breath, chest pain, palpitations, or orthopnea [] GI: Denies abdominal pain, nausea, vomiting, bloody stools or diarrhea [] : Denies dysuria or hematuria [] Musculoskeletal: Denies back pain or joint pain [] Integument: Denies rash or skin lesions [] Neurologic: Denies headache, focal weakness or sensory changes [] Endocrine: Denies polyuria or polydipsia [] All other systems were reviewed and found to be within normal limits, except as documented in this note. Current Medications Current Medications Current Medications Medications (Trade) Dose Ordered Sig/Jalyn Start Time Stop Time Status Last Admin Dose Admin Dextrose (Dextrose 50%-Water Syringe) 25 gm 1X ONCE 06/05/18 20:00 06/05/18 20:01 DC 06/05/18 20:04 25 GM Dextrose/Lactated Ringer's 1,000 ml @ 100 mls/hr 1X ONCE 06/05/18 20:00 06/06/18 05:59 06/05/18 20:06 100 MLS/HR Allergies Allergies Allergies Coded Allergies Type Severity Reaction Last Updated Verified No Known Drug Allergies 06/27/14 No Physical Exam Physical Exam PHYSICAL EXAM: CONSTITUTIONAL: Well developed, well nourished HEAD: normocephalic, atraumatic EENT: PERRL, EOMI. Conjunctivae normal color, sclerae non-icteric; mildly dry mucous membranes. NECK: Supple, non-tender; no meningismus. LUNGS: Lungs CTA, breathing even and unlabored. Normal air movement. HEART: Regular rate and rhythm, no murmur CHEST: No deformity; non-tender ABDOMEN: The abdomen is soft, and non-tender, no masses or bruits. EXTREM: Normal ROM; no deformity, no calf tenderness. Normal pulses palpable in all extremities. There is 1+ bilateral pedal edema. SKIN: No rash; no diaphoresis NEURO: Alert; normal speech, mildly delayed cognition; CN's grossly intact; strength grossly intact without focal deficit. BACK: No CVA TTP. Current Patient Data Vital Signs Vital Signs Date Time Temp Pulse Resp B/P (MAP) Pulse Ox O2 Delivery O2 Flow Rate FiO2 06/05/18 19:27 97.6 82 20 150/66 (94) 97 Room Air 97.6 Lab Values Laboratory Tests Test 06/05/18 20:00 White Blood Count 6.2 x10^3/uL (4.0-11.0) Red Blood Count 4.10 x10^6/uL (4.30-5.70) L Hemoglobin 12.5 g/dL (13.0-17.5) L Hematocrit 37.3 % (39.0-53.0) L Mean Corpuscular Volume 91 fL (79-100) Mean Corpuscular Hemoglobin 31 pg (25-35) Mean Corpuscular Hemoglobin Concent 34 g/dL (31-37) Red Cell Distribution Width 15.6 % (11.5-14.5) H Platelet Count 234 x10^3/uL (140-400) Neutrophils (%) (Auto) 78 % (31-73) H Lymphocytes (%) (Auto) 11 % (24-48) L Monocytes (%) (Auto) 9 % (0-9) Eosinophils (%) (Auto) 2 % (0-3) Basophils (%) (Auto) 1 % (0-3) Neutrophils # (Auto) 4.8 x10^3uL (1.8-7.7) Lymphocytes # (Auto) 0.7 x10^3/uL (1.0-4.8) L Monocytes # (Auto) 0.6 x10^3/uL (0.0-1.1) Eosinophils # (Auto) 0.1 x10^3/uL (0.0-0.7) Basophils # (Auto) 0.1 x10^3/uL (0.0-0.2) Prothrombin Time 12.8 SEC (11.7-14.0) Prothrombin Time INR 1.0 (0.8-1.1) Sodium Level 137 mmol/L (136-145) Potassium Level 4.0 mmol/L (3.5-5.1) Chloride Level 103 mmol/L (98-107) Carbon Dioxide Level 29 mmol/L (21-32) Anion Gap 5 (6-14) L Blood Urea Nitrogen 23 mg/dL (8-26) Creatinine 1.8 mg/dL (0.7-1.3) H Estimated GFR (Cockcroft-Gault) 44.6 BUN/Creatinine Ratio 13 (6-20) Glucose Level 147 mg/dL (70-99) H Calcium Level 9.2 mg/dL (8.5-10.1) Magnesium Level 1.8 mg/dL (1.8-2.4) Total Bilirubin 0.2 mg/dL (0.2-1.0) Aspartate Amino Transferase (AST) 12 U/L (15-37) L Alanine Aminotransferase (ALT) 14 U/L (16-63) L Alkaline Phosphatase 90 U/L (46-116) Creatine Kinase 117 U/L (39-308) Creatine Kinase MB (Mass) 0.6 ng/mL (0.0-3.6) Creatine Kinase MB Relative Index 0.5 % (0-4) Troponin I Quantitative < 0.017 ng/mL (0.000-0.055) JP-Pma-F-Type Natriuretic Peptide 216 pg/mL (0-449) Total Protein 7.4 g/dL (6.4-8.2) Albumin 3.7 g/dL (3.4-5.0) Albumin/Globulin Ratio 1.0 (1.0-1.7) Lipase 170 U/L (73-393) Thyroid Stimulating Hormone (TSH) 1.179 uIU/mL (0.358-3.74) Free Thyroxine 0.97 ng/dL (0.76-1.46) Ethyl Alcohol Level < 10 mg/dL (0-10) Laboratory Tests 06/05/18 20:00 Laboratory Tests 06/05/18 20:00 EKG EKG [Normal sinus rhythm at a rate of 57 beats for minute, left axis deviation, first-degree AV block, otherwise normal intervals. There are no acute ischemic ST/T changes.] Radiology/Procedures Radiology/Procedures [PROCEDURE: CT HEAD WO CONTRAST CT Head W/O Contrast: History: AMS, LOW BLOOD SUGAR Comparison: none Axial images were obtained without contrast. There is moderate diffuse atrophy. There is no mass effect, extraaxial fluid collections or hydrocephalus. There is no focal loss of benson-white matter distinction to suggest acute ischemia, i.e. stroke. Impression: No acute findings. ] ER physician preliminary chest x-ray interpretation: Cardiomegaly, No acute disease. Course & Med Decision Making Course & Med Decision Making Pertinent Labs and Imaging studies reviewed. (See chart for details) [11:10 PM: The patient's condition remained stable. His cousin, who is also his caregiver, has come to the bedside and the patient is at his baseline mental status. He has eaten, and is ambulatory without any instability. I discussed importance of monitoring his blood sugar, and making sure he has some food in his stomach. We discussed return precautions in detail.] Patient's creatinine is similar to his baseline. Dragon Disclaimer Dragon Disclaimer This electronic medical record was generated, in whole or in part, using a voice recognition dictation system. Departure Departure Impression: Primary Impression: Hypoglycemia Disposition: 01 HOME, SELF-CARE Condition: STABLE Referrals: DUSTIN RAMIREZ [employer]ER (PCP) Patient Instructions: Hypoglycemia (Low Blood Sugar) KARINA FERNÁNDEZ MD Jun 05, 2018 20:02
[2018-06-05 20:13] LABS: BASO # 0.1 x10^3/uL (0.0-0.2); BASO % 1 % (0-3); EOS # 0.1 x10^3/uL (0.0-0.7); EOS % 2 % (0-3); HEMATOCRIT 37.3 % (39.0-53.0); HEMOGLOBIN 12.5 g/dL (13.0-17.5); LYMPH # 0.7 x10^3/uL (1.0-4.8); LYMPH % 11 % (24-48); MEAN CORPUSCULAR HEMOGLOBIN 31 pg (25-35); MEAN CORPUSCULAR HGB CONC 34 g/dL (31-37); MEAN CORPUSCULAR VOLUME 91 fL (79-100); MONO # 0.6 x10^3/uL (0.0-1.1); MONO % 9 % (0-9); NEUT # 4.8 x10^3uL (1.8-7.7); NEUT % 78 % (31-73); PLATELET COUNT 234 x10^3/uL (140-400); RED CELL DISTRIBUTION WIDTH 15.6 % (11.5-14.5); WHITE BLOOD COUNT 6.2 x10^3/uL (4.0-11.0)
[2018-06-05 20:22] LABS: PROTHROMBIN TIME PATIENT 12.8 SEC (11.7-14.0)
[2018-06-05 20:25] LABS: CALCIUM 9.2 mg/dL (8.5-10.1); CREATININE 1.8 mg/dL (0.7-1.3); GFR 44.6
[2018-06-05 20:29] LABS: ALBUMIN 3.7 g/dL (3.4-5.0); MAGNESIUM 1.8 mg/dL (1.8-2.4); TOTAL BILIRUBIN 0.2 mg/dL (0.2-1.0); TOTAL PROTEIN 7.4 g/dL (6.4-8.2)
[2018-06-05 20:37] LABS: FREE T4 0.97 ng/dL (0.76-1.46); THYROID STIM HORMONE (TSH) 1.179 uIU/mL (0.358-3.74)
--- NOTE | 2018-06-05 20:58 | RAD ---
CT Head W/O Contrast: History: AMS, LOW BLOOD SUGAR Comparison: none Axial images were obtained without contrast. There is moderate diffuse atrophy. There is no mass effect, extraaxial fluid collections or hydrocephalus. There is no focal loss of benson-white matter distinction to suggest acute ischemia, i.e. stroke. Impression: No acute findings. RS Compliance Statement: One or more of the following individualized dose reduction techniques were utilized for this examination: 1. Automated exposure control 2. Adjustment of the mA and/or kV according to patient size 3. Use of iterative reconstruction technique Electronically signed by: Jaswinder Vera III, MD (06/05/2018 8:54 PM) [facility]
[2018-06-05 23:30] VITALS: BP 154/66
--- NOTE | 2018-06-06 01:13 | EKG ---
[facility] [address] [place] [address] Test Date: 2018-06-05 Test Time: 20:11:07 Pat Name: ANAHI BARTON Department: Room: Gender: M [employer]: : 1940 Requested By: KARINA FERNÁNDEZ Order Number: [id number] Reading MD: Reji Matthews MD Measurements Intervals [place] Rate: 57 P: -153 MA: 338 QRS: -25 QRSD: 84 T: 63 QT: 446 QTc: 437 Interpretive Statements SINUS RHYTHM PROLONGED MA INTERVAL PRIOR INFERIOR INFARCT Electronically Signed On 06-09-2018 10:34:12 CDT by Reji Matthews MD
--- NOTE | 2018-06-06 07:13 | RAD ---
Portable AP chest. HISTORY: Altered mental status. AP view was taken of the chest. Lungs are free of confluent areas of infiltrate. Heart is normal in size without heart failure. There is no pleural effusion. IMPRESSION: 1. No acute chest disease. Electronically signed by: Carlin Stephens MD (06/06/2018 7:09 AM) [id number]
== END 2018-06-05 23:34 | disposition home or self-care (01) ==
LOC: ER 19:27
DX: E11.649 Type 2 diabetes mellitus with hypoglycemia without coma (principal); M19.90 Unspecified osteoarthritis, unspecified site; J44.9 Chronic obstructive pulmonary disease, unspecified; E78.00 Pure hypercholesterolemia, unspecified; I11.9 Hypertensive heart disease without heart failure; Z90.49 Acquired absence of other specified parts of digestive tract; Z87.891 Personal history of nicotine dependence
CPT/HCPCS: 36415; 70450; 71045; 80053; 82553; 82962; 83690; 83735; 83880; 84439; 84443; 84484; 85025; 85610; 93005; 96365; 96376; 99285; G0480; J7042

== ENCOUNTER 2022-02-07 04:16 | Inpatient (IN) | payer MEDICARE, OTHER ==
[~2022-02-07] VITALS: Ht 172.7 cm; Wt 113.2 kg
[~2022-02-07 04:16] MED LIST changes: +ALLO300T; +AMLO-186 PO; -AMLO5TAB2 PO; +ATOR10TA PO; +BISA5TAB76 PO; +ERGO500027 PO; +FLUT1DIS3; +GABA100C6; -GLIM4TAB2 PO; +GLIM4TAB8; +GLIM4TAB8 PO; -HYDR-2762 PO; +HYDR-2765 PO; +INSU100I11 SQ; -ISOS60TA2 PO; +ISOS60TA55 PO; +LEVO250T8 PO; +LINA5TAB PO; -LINA5TAB4 PO; +LINZESS145 MCG PO; +LORA10TA3 PO; +METH4TAB2 PO; +METO10TA81 PO; +OMEP40CA7 PO; -POTA10TA12 PO; +POTASSIUM CHLO10 ME1 PO; +RANI150C PO; +TAMS0.4C2
[2022-02-07] MEDS ORDERED: IPRATRPIUM/ALBUTEROL 0.5/2.5MG 3 ML NEBU. NEB ONE (04:45)
--- NOTE | 2022-02-07 05:20 | RAD ---
AP chest x-ray HISTORY: Shortness of breath. COMPARISON: CT chest November 05, 2018 FINDINGS: Coronary artery bypass. Left coronary stent. Moderate cardiomegaly stable. No pneumothorax. No pleural effusions. Pulmonary vascular prominence likely congestion. No pulmonary opacities or ple ural effusions. IMPRESSION: There may be early changes of congestive heart failure with cardiomegaly and pulmonary va scular congestion present. No pulmonary edema or pleural effusions evident. Electronically signed by: Nino Correa MD (02/07/2022 5:18 AM) [facility]
--- NOTE | 2022-02-07 05:58 | PHYS DOC ---
Past Medical History Past Medical History: Arthritis, Asthma, Bronchitis, CAD, COPD, Diabetes-Type II, High Cholesterol, Heart Disease, Hypertension, Renal Disease, Other Additional Past Medical Histor: "Kidney trouble.", hemmorhoids Past Surgical History: Angioplasty, Cholecystectomy, Other Additional Past Surgical Histo: Umbilical hernia, Cardiac stent x 4. Smoking Status: Former Smoker Alcohol Use: None Drug Use: None Adult General Chief Complaint Chief Complaint: SHORTNESS OF BREATH HPI HPI The patient is an 82-year-old male with a history of hypertension, hyperlipidemia, coronary artery disease status post stenting, no clear history of heart failure with a relatively normal echocardiogram documented in records here, COPD not on home oxygen. Mr. Hand presents for evaluation of shortness of breath while trying to sleep overnight. States that laying flat makes him feel dyspneic. Reports this is a new problem. States that as long as he is sitting up he feels fine. Denies other focal or specific symptoms and specifically denies fevers, nausea or vomiting, upper respiratory congestion/rhinorrhea, cough, sore throat, chest pain of any kind, abdominal pain of any kind, flank pain, midline back pain, dysuria, hematuria, polyuria or oliguria, changes in bowel habits, pain or swelling to arms or legs. Patient is alert, pleasantly and appropriately interactive and in no acute distress with appropriate vital signs upon initial evaluation here in the emergency department. He is not conversationally dyspneic. Review of Systems Review of Systems A 12 point review of systems was completed and was negative except where noted in HPI above. Current Medications Current Medications Current Medications Medications (Trade) Dose Ordered Sig/Jalyn Start Time Stop Time Status Last Admin Dose Admin Albuterol/ Ipratropium (Duoneb) 3 ml 1X ONCE 02/07/22 04:45 02/07/22 04:51 DC 02/07/22 05:23 3 ML Allergies Allergies Allergies Coded Allergies Type Severity Reaction Last Updated Verified No Known Drug Allergies 06/27/14 No Physical Exam Physical Exam 82-year-old male appearing nontoxic and in no acute distress. Head is normocephalic and atraumatic. Neck is supple and nontender. Oropharynx is moist. Lungs with diminished breath sounds to all damon but no wheezes, crackles or other adventitious sounds. Mildly increased work of breathing with some very mild accessory muscle recruitment seen. There is a normal S1 and S2 without rubs or gallops and capillary refill is appropriate, less than 2 seconds globally. Abdomen is soft, nontender and nondistended. Skin is warm and dry without cyanosis, clubbing or edema. Psychiatrically, the patient demonstrates appropriate mood and affect and is alert. Evaluation of the extremities reveals BUEs and BLEs neurovascularly intact distally with strength out of 5, sensation intact light touch in all nerve distributions, radial, DP and PT pulses 2+ and equal bilaterally, capillary refill less than 2 seconds, hands and feet warm and well-perfused. 1+ dependent pitting peripheral edema below the level of the mid shins bilaterally. No calf tenderness or swelling bilaterally. Homans test is negative bilaterally. Current Patient Data Vital Signs Vital Signs Date Time Temp Pulse Resp B/P (MAP) Pulse Ox O2 Delivery O2 Flow Rate FiO2 02/07/22 05:23 97 Room Air EKG EKG Atrial fibrillation with controlled rate, no acute ST elevation or depression, EP interpretation. Nonischemic tracing. Radiology/Procedures Radiology/Procedures AP chest x-ray HISTORY: Shortness of breath. COMPARISON: CT chest November 05, 2018 FINDINGS: Coronary artery bypass. Left coronary stent. Moderate cardiomegaly stable. No pneumothorax. No pleural effusions. Pulmonary vascular prominence likely congestion. No pulmonary opacities or pleural effusions. IMPRESSION: There may be early changes of congestive heart failure with cardiomegaly and pulmonary vascular congestion present. No pulmonary edema or pleural effusions evident. Electronically signed by: Evelina Correa MD (02/07/2022 5:18 AM) [facility] [place] and SIGNED BY: EVELINA CORREA MD DATE: 02/07/22 0516 Course & Med Decision Making Course & Med Decision Making Elderly comorbid gentleman presenting with orthopnea and paroxysmal nocturnal dyspnea. Vital signs and clinical examination are generally reassuring. Not wheezing but given a DuoNeb given COPD history. Suspect heart failure exacerbation as a cause for symptoms. Pending work-up as noted, plan for admission. Patient is in atrial fibrillation with a controlled rate by EKG; I am not clear based on records whether this is a known issue for him or not. Dragon Disclaimer Dragon Disclaimer This electronic medical record was generated, in whole or in part, using a voice recognition dictation system. Departure Departure Impression: Primary Impression: Orthopnea Additional Impression: Atrial fibrillation and flutter Condition: STABLE Referrals: NITISH EASLEY (PCP) Problem Qualifiers JANUARY MILES MD Feb 07, 2022 05:58
[2022-02-07 06:15] LABS: INFLUENZA A PATIENT NEGATIVE (NEGATIVE); INFLUENZA B PATIENT NEGATIVE (NEGATIVE)
[2022-02-07 06:36] LABS: BASO # 0.1 x10^3/uL (0.0-0.2); BASO % 1 % (0-3); EOS # 0.2 x10^3/uL (0.0-0.7); EOS % 3 % (0-3); HEMATOCRIT 38.1 % (39.0-53.0); HEMOGLOBIN 12.7 g/dL (13.0-17.5); LYMPH # 1.7 x10^3/uL (1.0-4.8); LYMPH % 24 % (24-48); MEAN CORPUSCULAR HEMOGLOBIN 30 pg (25-35); MEAN CORPUSCULAR HGB CONC 33 g/dL (31-37); MEAN CORPUSCULAR VOLUME 91 fL (79-100); MONO # 0.7 x10^3/uL (0.0-1.1); MONO % 10 % (0-9); NEUT # 4.3 x10^3/uL (1.8-7.7); NEUT % 62 % (31-73); PLATELET COUNT 192 x10^3/uL (140-400); RED BLOOD COUNT 4.18 x10^6/uL (4.30-5.70); RED CELL DISTRIBUTION WIDTH 14.6 % (11.5-14.5); WHITE BLOOD COUNT 6.9 x10^3/uL (4.0-11.0)
[2022-02-07 06:46] LABS: CALCIUM 8.7 mg/dL (8.5-10.1); CREATININE 1.4 mg/dL (0.7-1.3); POTASSIUM 3.6 mmol/L (3.5-5.1)
[2022-02-07 07:01] LABS: ALBUMIN 3.1 g/dL (3.4-5.0); ALBUMIN/GLOBULIN RATIO 0.9 (1.0-1.7); TOTAL BILIRUBIN 0.4 mg/dL (0.2-1.0); TOTAL PROTEIN 6.5 g/dL (6.4-8.2)
[2022-02-07 07:05] LABS: PROTHROMBIN TIME PATIENT 13.1 SEC (11.7-14.0)
[2022-02-07] MEDS ORDERED: HEPARIN for IV BOLUS 10,000 UNIT/10 ML VIAL. IV PRN (07:15)
[2022-02-07] MEDS ORDERED: HEPARIN for IV BOLUS 10,000 UNIT/10 ML VIAL. IV ONE (07:15)
[2022-02-07] MEDS: HEPARIN 25,000UTS/250ML PREMIX 250 ML IV PRN (07:58)
[2022-02-07] MEDS ORDERED: FUROSEMIDE 40 MG/4 ML VIAL. IVP ONE (09:15)
[2022-02-07 10:11] LABS: PLT ESTIMATE ADEQUATE (ADEQUATE)
[2022-02-07 11:10] VITALS: BP 140/66
--- NOTE | 2022-02-07 12:13 | PDOC2 ---
MARTI HAYWOOD CONSTRUCTION TECHNICIAN 02/07/22 1213: CARDIAC CONSULT DATE OF CONSULT Date of Consult DATE: 02/07/22 TIME: 12:01 REASON FOR CONSULT Reason for Consult: NSTEMI REFERRING PHYSICIAN Referring Physician: Dr. Tolbert SOURCE Source: Chart review, Patient HISTORY OF PRESENT ILLNESS HISTORY OF PRESENT ILLNESS This is an 86 yo male who presented secondary shortness of breath. Was noted with CHF and NSTEMI, which prompted this consult. Patient reports shortness of breath has been present for the last several days. No significant LE edema. Does report orthopnea. No chest pain, palpitations, dizziness, diaphoresis, or na usea/vomiting. Reports compliance with meds. Has struggled recently as daughter recently passed, who lived with him. Does have a history of CHF and CAD s/p CABG in 2019. Follows with [facility]. PAST MEDICAL HISTORY Past Medical History Cardiovascular: AFIB, CAD, CHF, HTN, Hyperlipidemia Pulmonary: COPD, Other (TRISTON) GI: GI bleed Heme/Onc: Anemia NOS Rheumatologic: Gout Renal/: Chronic renal insuff Endocrine: Diabetes 2 PAST SURGICAL HISTORY Past Surgical History Cholecystectomy, Cataract Removal, Hernia Repair, C 2013, CABG 07/10 FAMILY HISTORY Family History Coronary Artery Disease, Diabetes, Hypertension, Kidney Disease SOCIAL HISTORY Social History Smoke: Quit ALCOHOL: none Drugs: None Lives: Alone CURRENT MEDICATIONS CURRENT MEDICATIONS Current Medications Medications (Trade) Dose Ordered Sig/Jalyn Route PRN Reason Start Time Stop Time Status Last Admin Dose Admin Albuterol/ Ipratropium (Duoneb) 3 ml 1X ONCE NEB 02/07/22 04:45 02/07/22 04:51 DC 02/07/22 05:23 Heparin Sodium (Porcine) (Heparin Sodium) 4,000 unit 1X ONCE IV 02/07/22 07:15 02/07/22 07:16 DC 02/07/22 07:56 Heparin Sodium/ Dextrose 250 ml @ 13.632 mls/ hr CONT PRN IV PER PROTOCOL 02/07/22 07:15 02/07/22 07:58 Furosemide (Lasix) 40 mg 1X ONCE IVP 02/07/22 09:15 02/07/22 09:16 DC 02/07/22 09:27 ALLERGIES ALLERGIES: Coded Allergies: No Known Drug Allergies (Unverified , 02/07/22) ROS Review of System 14 point ROS conducted with pertinent positives noted above in HPI PHYSICAL EXAM PHYSICAL EXAM General: Alert, Oriented X3, Cooperative, No acute distress HEENT: Atraumatic, Mucous membr. moist/pink Lungs: Other (diminished with diffuse faint wheeze) Heart: Other (distant heart sounds) Abdomen: Soft, No hepatosplenomegaly Extremities: No cyanosis, 1+ bilateral LE edema Skin: No breakdown, No significant lesion Neuro: Normal speech, Sensation intact Psych/Mental Status: Mental status NL, Mood NL MUSCULOSKELETAL: Osteoarthritic changes both hands VITALS/I&O VITALS/I&O: Vital Signs Date Time Temp Pulse Resp B/P (MAP) Pulse Ox O2 Delivery O2 Flow Rate FiO2 02/07/22 11:10 98.3 66 19 140/66 (90) 96 Room Air 98.3 LABS Lab: Laboratory Tests Test 02/07/22 05:35 02/07/22 06:20 Influenza Type A Antigen Negative (NEGATIVE) Influenza Type B Antigen Negative (NEGATIVE) SARS-CoV-2 Antigen (Rapid) Negative (NEGATIVE) White Blood Count 6.9 x10^3/uL (4.0-11.0) Red Blood Count 4.18 x10^6/uL (4.30-5.70) L Hemoglobin 12.7 g/dL (13.0-17.5) L Hematocrit 38.1 % (39.0-53.0) L Mean Corpuscular Volume 91 fL (79-100) Mean Corpuscular Hemoglobin 30 pg (25-35) Mean Corpuscular Hemoglobin Concent 33 g/dL (31-37) Red Cell Distribution Width 14.6 % (11.5-14.5) H Platelet Count 192 x10^3/uL (140-400) Neutrophils (%) (Auto) 62 % (31-73) Lymphocytes (%) (Auto) 24 % (24-48) Monocytes (%) (Auto) 10 % (0-9) H Eosinophils (%) (Auto) 3 % (0-3) Basophils (%) (Auto) 1 % (0-3) Neutrophils # (Auto) 4.3 x10^3/uL (1.8-7.7) Lymphocytes # (Auto) 1.7 x10^3/uL (1.0-4.8) Monocytes # (Auto) 0.7 x10^3/uL (0.0-1.1) Eosinophils # (Auto) 0.2 x10^3/uL (0.0-0.7) Basophils # (Auto) 0.1 x10^3/uL (0.0-0.2) Platelet Estimate Adequate (ADEQUATE) Large Platelets Few Prothrombin Time 13.1 SEC (11.7-14.0) Prothrombin Time INR 1.0 (0.8-1.1) Activated Partial Thromboplast Time 28 SEC (24-38) Sodium Level 138 mmol/L (136-145) Potassium Level 3.6 mmol/L (3.5-5.1) Chloride Level 104 mmol/L (98-107) Carbon Dioxide Level 24 mmol/L (21-32) Anion Gap 10 (6-14) Blood Urea Nitrogen 13 mg/dL (8-26) Creatinine 1.4 mg/dL (0.7-1.3) H Estimated GFR (Cockcroft-Gault) 59.0 BUN/Creatinine Ratio 9 (6-20) Glucose Level 153 mg/dL (70-99) H Lactic Acid Level 1.9 mmol/L (0.4-2.0) Calcium Level 8.7 mg/dL (8.5-10.1) Total Bilirubin 0.4 mg/dL (0.2-1.0) Aspartate Amino Transferase (AST) 19 U/L (15-37) Alanine Aminotransferase (ALT) 17 U/L (16-63) Alkaline Phosphatase 139 U/L (46-116) H Troponin I High Sensitivity 1456 ng/L (4-75) H OS-Rth-W-Type Natriuretic Peptide 5866 pg/mL (0-449) H Total Protein 6.5 g/dL (6.4-8.2) Albumin 3.1 g/dL (3.4-5.0) L Albumin/Globulin Ratio 0.9 (1.0-1.7) L Procalcitonin < 0.10 ng/mL (0.00-0.10) Laboratory Tests 02/07/22 06:20 Laboratory Tests 02/07/22 06:20 EKG EKG 11/16/21 - HOLTER WEARABLE ECG MONITOR CONNECT + SCAN Location Performed: [facility] Status: Final result Interpretation Summary Holter monitor demonstrates: 1. The underlying rhythm is sinus rhythm with first-degree AV delay with rates up to 108 bpm -- average 60 bpm. 2. There were frequent ventricular premature contractions (PVCs, 9412 over 48 hours, 5.3%, hourly burden between 0.5-16.9%, 2 morphologies with dominant 88.6%, day >night) observed. There was no VT observed (reported episodes of NSVT were actually interpolated PVCs it seems) . 3. There were no supraventricular premature depolarizations (PACs) observed. There was no SVT. 4. There were no significant pauses (longest 2.2s). There were some episodes of second-degree Mobitz 1 AV block correlating with these short pauses. 1 of these episodes occurred on 11/16/2021 at 2:09 PM. Another episode occurred on at 5:47 AM --there was a junctional beat before conduction resumed. There was also a time of second-degree 2:1 heart block on 11/17/2021 at 8:28 AM (this coincided with the minimum heart rate of 34 bpm). Other strips demonstrating second-degree Mobitz 1 AV block included 11/17/2021 at 7:08 AM/7:45 AM/9:03 AM/10:28 AM, 11/18/2021 at 11:00 AM. 5. No diary was available for interpretation. 6. There was no sustained atrial fibrillation, atrial flutter, or atrial tachycardia. Conclusions: Ambulatory ECG Monitoring for approximately 48 hours demonstrates: Significant AV node disease with first-degree AV delay at baseline and times of second-degree Mobitz 1 AV block and second-degree 2-1 AV block at night and during some daytime hours as documented above. There is a 5.3% burden of PVCs. There were no true episodes of NSVT. ECHOCARDIOGRAM ECHOCARDIOGRAM <Conclusion> The left ventricular systolic function is normal. The Ejection Fraction is 55-60%. There is normal LV segmental wall motion. Trace tricuspid valve regurgitation. There is no evidence of significant pericardial effusion. DATE: 11/05/18 1114 01/10/22 - 2D + DOPPLER ECHO Interpretation Summary The left ventricular systolic function is borderline. The visually estimated ejection fraction is 50% Right ventricle not well seen. The right ventricular systolic function is mildly reduced. No significant valvular abnormalities. Compared to prior study (06/10/2020): The left ventricular function is slightly less vigorous on today's study. STRESS TEST STRESS TEST Conclusion 1. Regadenoson cardioisotope stress test showed small infarct involving the mid to distal anterior wall without any ischemia. 2. Also seen was small to moderate infarct involving the base to mid inferior and inferolateral rosales without any ischemia. 3. Basal inferior wall hypokinesis with ejection fraction calculated at 63%. 4. Low risk for cardiac events. DATE: 05/10/18 1349 HEART CATH HEART CATH Impression this patient has diffuse coronary artery disease but there is no significant area of stenosis that would require either stenting or bypass surgery therefore I would recommend medical treatment for this patient DATE: 08/23/14 1928 ASSESSMENT/PLAN ASSESSMENT/PLAN 1. Acute respiratory failure secondary to acute on chronic diastolic CHF; Echo 01/09 with LVEF 50% as noted above. 2. NSTEMI; initial trop 1456. on heparin gtt. Most probable type II, demand ischemia secondary to above 3. CAD; s/p CABG x3 07/10. Follows with [facility] 4. Accelerated hypertension; now improved 5. Hyperlipidemia; statin 6. DM2 7. PAFIB; presently SR. recent event monitor with brief period of second degree type one AVB and brief second degree type II AVB with HR 34 as noted above 8. CKD; Cr stable 9. Morbid obesity, TRISTON Recommendations Trend troponin Continue heparin gtt for now Diuresis with monitoring of renal function Resume secondary prevention No BB with bradycardia Probable outpatient ischemic evaluation KATERINE GLOVER MD 02/07/22 1705: CARDIAC CONSULT ASSESSMENT/PLAN ASSESSMENT/PLAN Patient seen and examined. Agree with PRODUCTION DESIGNER's assessment and plan. Non-STEMI most probably demand ischemia Continue heparin for 24 hours Acute on chronic diastolic heart failure better compensated Recent 2D echo showed LVEF 50% CAD s/p CABG clinically stable Blood pressure better controlled since admission PAF presently sinus rhythm Thank you for your consultation MARTI HAYWOOD APRN Feb 07, 2022 12:13 KATERINE GLOVER MD Feb 07, 2022 17:05
[2022-02-07] MEDS: PANTOPRAZOLE 40 MG TABLET.DR. PO SCH (12:24)
[2022-02-07] MEDS: FUROSEMIDE 40 MG TABLET. PO SCH (12:24)
[2022-02-07] MEDS: ISOSORBIDE MONONITRATE ER 30 MG TAB.ER.24H PO SCH (12:24)
[2022-02-07] MEDS: ALLOPURINOL 300 MG TABLET. PO SCH (12:24)
[2022-02-07] MEDS: METOCLOPRAMIDE 10 MG TABLET. PO SCH ×2 (12:24→16:50)
[2022-02-07] MEDS: SPIRONOLACTONE 25 MG TABLET PO SCH (12:25)
[2022-02-07] MEDS: GABAPENTIN 100 MG CAPSULE. PO SCH ×2 (12:25→21:09)
[2022-02-07] MEDS: FOLIC/VIT B COMP W-C (RENAL) TABLET. PO SCH (12:25)
[2022-02-07] MEDS: FLUTICASONE 50MCG/NASAL SPRAY 16GM BOTTLE. NS SCH (12:25)
[2022-02-07] MEDS: POLYETHYLENE GLYCOL 3350 17 GM PACKET. PO SCH (12:25)
[2022-02-07] MEDS: ALBUTEROL SULFATE 2.5 MG/3 ML NEBU. NEB SCH ×3 (12:51→21:28)
[2022-02-07] MEDS: BUDESONIDE 0.5 MG/2 ML NEBU. NEB SCH ×2 (12:51→21:28)
[2022-02-07] MEDS ORDERED: CALCIUM CARBONATE 500 MG TAB.CHEW PO PRN (13:45)
[2022-02-07] MEDS ORDERED: ELECTROLYTE (NON-ICU) PROTOCOL. MC PRN (13:45)
[2022-02-07] MEDS ORDERED: MORPHINE SULFATE 2 MG/ML INJ. IV PRN ×2 (13:45)
[2022-02-07] MEDS ORDERED: ZOLPIDEM 5 MG TABLET. PO PRN (13:45)
[2022-02-07] MEDS ORDERED: ONDANSETRON PF 4 MG/2 ML VIAL. IVP PRN (13:45)
[2022-02-07] MEDS ORDERED: ACETAMINOPHEN 325 MG TABLET. PO PRN (13:45)
--- NOTE | 2022-02-07 14:17 | PDOC1 ---
History and Physical Date of Service: DOS: DATE: 02/07/22 TIME: 14:17 Chief Complaint: Chief Complain: SOB History of Present Illness: HPI: Patient is an 82-year-old -[place] Citizen male presented to the emergency room today with 1 day history of shortness of breath. Patient reports this started last night he was unable to sleep because of it. Made much worse by laying flat. Significant cardiac history CABG CAD status post stent placement diastolic CHF; follows with cardiology at . Denying much actual chest pain however. In emergency room noted to have troponin elevated to around 1500 and BNP greater than 5000. Recommended for admission with cardiac consultation. When I saw the patient he was sitting up resting in bed. Difficult to understand but was able to say he was reporting ongoing shortness of breath. Attempted to lay his bed flat and he became very dyspneic. Past Medical/Surgical History: PMH/PSH: Past Medical History: Arthritis, Asthma, Bronchitis, CAD, COPD, Diabetes-Type II, High Cholesterol, Heart Disease, Hypertension, Renal Disease Additional Past Medical Histor: "Kidney trouble.", hemmorhoids Past Surgical History: Angioplasty, Cholecystectomy, Additional Past Surgical Histo: Umbilical hernia, Cardiac stent x 4. Smoking Status: Former Smoker Alcohol Use: None Drug Use: None Allergies: Allergies: Coded Allergies: No Known Drug Allergies (Unverified , 02/07/22) Family History: Family History: Hypertension Current Medications: Current Medications Current Medications Albuterol/ Ipratropium (Duoneb) 3 ml 1X ONCE NEB Last administered on 02/07/22at 05:23; Start 02/07/22 at 04:45; Stop 02/07/22 at 04:51; Status DC Heparin Sodium (Porcine) (Heparin Sodium) 4,000 unit 1X ONCE IV Last administered on 02/07/22at 07:56; Start 02/07/22 at 07:15; Stop 02/07/22 at 07:16; Status DC Heparin Sodium/ Dextrose 250 ml @ 13.632 mls/ hr CONT PRN IV PER PROTOCOL Last administered on 02/07/22at 07:58; Start 02/07/22 at 07:15 Heparin Sodium (Porcine) (Heparin Sodium) 2,850 unit PRN Q6HRS PRN IV FOR UFH LEVEL LESS THAN 0.2; Start 02/07/22 at 07:15 Furosemide (Lasix) 40 mg 1X ONCE IVP Last administered on 02/07/22at 09:27; Start 02/07/22 at 09:15; Stop 02/07/22 at 09:16; Status DC Amlodipine Besylate (Norvasc) 5 mg DAILY PO Last administered on 02/07/22at 12:24; Start 02/07/22 at 12:30 Atorvastatin Calcium (Lipitor) 10 mg QHS PO ; Start 02/07/22 at 21:00 Fluticasone Propionate (Flonase) 2 spray DAILY NS Last administered on 02/07/22at 12:25; Start 02/07/22 at 12:30 Vitamin B Complex/ Vitamin C (Alena-Macho) 1 tab DAILY PO Last administered on 02/07/22at 12:25; Start 02/07/22 at 12:30 Furosemide (Lasix) 40 mg DAILY PO Last administered on 02/07/22at 12:24; Start 02/07/22 at 12:30 Metoclopramide HCl (Reglan) 10 mg TIDAC PO Last administered on 02/07/22at 12:24; Start 02/07/22 at 12:30 Polyethylene Glycol (miraLAX PACKET) 17 gm DAILY PO Last administered on 02/07/22at 12:25; Start 02/07/22 at 12:30 Spironolactone (Aldactone) 25 mg DAILY PO Last administered on 02/07/22at 12:25; Start 02/07/22 at 12:30 Sucralfate (Carafate) 1 gm BIDBFRMEAL PO ; Start 02/07/22 at 16:30 Non-Formulary Medication (Fluticasone/ Salmeterol (Advair 250-50 Diskus)) 1 puff BID66 .ROUTE ; Start 02/07/22 at 18:00; Status UNV Insulin Glargine (Lantus Syringe) 20 unit BID SQ ; Start 02/07/22 at 21:00 Insulin Human Lispro (HumaLOG) 20 units BIDBFRMEAL SQ ; Start 02/07/22 at 16:30 Isosorbide Mononitrate (Imdur) 60 mg DAILY PO Last administered on 02/07/22at 12:24; Start 02/07/22 at 12:30 Lubiprostone (Amitiza) 24 mcg BIDWMEALS PO ; Start 02/07/22 at 17:00 Pantoprazole Sodium (Protonix) 40 mg DAILYAC PO Last administered on 02/07/22at 12:24; Start 02/07/22 at 12:30 Allopurinol (Zyloprim) 300 mg DAILY08 PO Last administered on 02/07/22at 12:24; Start 02/07/22 at 12:30 Gabapentin (Neurontin) 200 mg TID PO Last administered on 02/07/22at 12:25; Start 02/07/22 at 14:00 Spironolactone (Aldactone) 625 mg DAILY PO ; Start 02/08/22 at 09:00; Status UNV Tamsulosin HCl (Flomax) 0.4 mg DAILYWSUP PO ; Start 02/07/22 at 17:00 Budesonide (Pulmicort) 0.5 mg RTBID NEB Last administered on 02/07/22at 12:51; Start 02/07/22 at 12:30 Albuterol Sulfate (Ventolin Neb Soln) 2.5 mg RTQID NEB Last administered on 02/07/22at 12:51; Start 02/07/22 at 12:30 Ondansetron HCl (Zofran) 4 mg PRN Q6HRS PRN IVP NAUSEA/VOMITING; Start 02/07/22 at 13:45 Calcium Carbonate/ Glycine (Tums) 500 mg PRN Q3HRS PRN PO UPSET STOMACH; Start 02/07/22 at 13:45 Zolpidem Tartrate (Ambien) 5 mg PRN QHS PRN PO INSOMNIA, MAY REPEAT IN 1HR; Start 02/07/22 at 13:45 Info (Non-Icu Electrolyte Protocol) 1 ea PRN DAILY PRN MC SEE COMMENTS; Start 02/07/22 at 13:45 Morphine Sulfate (Morphine Sulfate) 1 mg PRN Q1HR PRN IV PAIN; Start 02/07/22 at 13:45 Morphine Sulfate (Morphine Sulfate) 2 mg PRN Q1HR PRN IV PAIN; Start 02/07/22 at 13:45 Acetaminophen (Tylenol) 650 mg PRN Q6HRS PRN PO Headaches, Temp > 101.5F; Start 02/07/22 at 13:45 Senna/Docusate Sodium (Senna Plus) 1 tab BID PO ; Start 02/07/22 at 21:00 Active Scripts Active Medrol (Methylprednisolone) 4 Mg Tab.ds.pk 1 Pkg PO UD Levofloxacin 250 Mg Tablet 250 Mg PO DAILY 7 Days Humalog (Insulin Lispro) 100 Unit/1 Ml Insuln.pen 20 Units SQ BIDBFRMEAL 30 Days see sliding scale Lantus Solostar (Insulin Glargine,Hum.rec.anlog) 100 Unit/1 Ml Insuln.pen 20 Units SQ BID 30 Days Miralax (Polyethylene Glycol 3350) 17 Gm Powd.pack 1 Packet PO DAILY Children's Aspirin (Aspirin) 81 Mg Tab.chew 324 Mg PO 1X Reported Vitamin D2 (Ergocalciferol (Vitamin D2)) 50,000 Unit Capsule 1 Cap PO WEEKLY Spironolactone 25 Mg Tablet 25 Tab PO DAILY Ranitidine Hcl 150 Mg Capsule 150 Mg PO DAILY Omeprazole 40 Mg Capsule.dr 1 Cap PO DAILY NITROGLYCERIN SubLingual (Nitroglycerin) 0.4 Mg Tab.subl 0.4 Mg SL PRN Q5MIN PRN Metoprolol Succinate ( Xl ) (Metoprolol Succinate) 100 Mg Tab.er.24h 1 Tab PO DAILY Reglan (Metoclopramide Hcl) 10 Mg Tablet 1 Tab PO TID Loratadine 10 Mg Tablet 1 Tab PO DAILY Lipitor (Atorvastatin Calcium) 10 Mg Tablet 1 Tab PO QHS Linzess (Linaclotide) 145 Mcg Capsule 145 Mcg PO DAILY07 Furosemide 40 Mg Tablet 1 Tab PO DAILY Gabapentin 100 Mg Capsule 200 TID Tamsulosin Hcl 0.4 Mg Cap.er.24h 0.4 DAILYWSUP Correctol (Bisacodyl) 5 Mg Tablet 10 Mg PO PRN Q24HRS PRN Allopurinol 300 Mg Tablet 300 DAILY08 Advair 250-50 Diskus (Fluticasone/Salmeterol) 1 Each Disk.w.dev 1 Puff BID66 Fluticasone Propionate Nasal [place] (Fluticasone Propionate) 16 Gm [place].susp 2 [place] NS DAILY Spironolactone 25 Mg Tablet 25 Mg PO DAILY NITROGLYCERIN SubLingual (Nitroglycerin) 0.4 Mg Tab.subl 0.4 Mg SL PRN Q5MIN PRN Metoprolol Succinate ( Xl ) (Metoprolol Succinate) 100 Mg Tab.er.24h 100 Mg PO DAILY Amlodipine Besylate 5 Mg Tablet 5 Mg PO DAILY Nephro-Macho Tablet (Folic Acid/Vitamin B Comp W-C) 0.8 Mg Tablet 0.8 Mg PO DAILY Sucralfate 1 Gm Tablet 1 Gm PO BIDBFRMEAL Isosorbide Mononitrate Er (Isosorbide Mononitrate) 60 Mg Tab.er.24h 60 Mg PO DAILY Albuterol Sulfate Hfa Inhaler (Albuterol Sulfate) 8.5 Gm Hfa.aer.ad 90 Mcg IH PRN Q4-6HRS PRN Iron (Ferrous Sulfate) 325 Mg Capsule.er 325 Mg PO DAILY ROS: Review of Systems Review of System Unless noted in HPI 14 point review systems Physical Exam: Vital Signs: Vital Signs Date Time Temp Pulse Resp B/P (MAP) Pulse Ox O2 Delivery O2 Flow Rate FiO2 02/07/22 12:52 96 Room Air 02/07/22 12:24 66 140/66 02/07/22 11:10 98.3 19 98.3 Physcial Exam: GEN: No apparent distress. Alert and oriented HEENT: Normal cephalic, atraumatic, external auditory canals are patent EYES: Extraocular muscles are intact, pupil are equally round and reactive to light and accommodation MUSCULOSKELETAL: Well developed , well nourished, limited range of motion due to habitus ENDOCRINE: No thyromegaly was palpated LYMPHATICS: No cervical chain or axillary nodes were noted HEMATOPOIETIC: No bruising NECK: Supple, no JVD, no thyromegaly was noted LUNGS: Crackles decreased air entry throughout HEART: RRR, S!, S2 present. Peripheral pulses intact, no obvious murmurs noted ABDOMEN: Soft, nontender. Positive bowel sounds, no organomegaly, normal bowel sounds EXTREMITIES: Bilateral lower extremity edema NEUROLOGIC: Normal speech and tone. A&O x 3, moves all extremities, no obvious focal deficits PSYCHIATRIC: Normal affect, normal mood. Stable SKIN: No ulcerations or rashes, good skin turgor, no jaundice VASCULAR: Good capillary refill, neurovascular bundle appears to be intact Labs: Labs: Laboratory Tests Test 02/07/22 05:35 02/07/22 06:20 Influenza Type A Antigen Negative (NEGATIVE) Influenza Type B Antigen Negative (NEGATIVE) SARS-CoV-2 Antigen (Rapid) Negative (NEGATIVE) White Blood Count 6.9 x10^3/uL (4.0-11.0) Red Blood Count 4.18 x10^6/uL (4.30-5.70) Hemoglobin 12.7 g/dL (13.0-17.5) Hematocrit 38.1 % (39.0-53.0) Mean Corpuscular Volume 91 fL (79-100) Mean Corpuscular Hemoglobin 30 pg (25-35) Mean Corpuscular Hemoglobin Concent 33 g/dL (31-37) Red Cell Distribution Width 14.6 % (11.5-14.5) Platelet Count 192 x10^3/uL (140-400) Neutrophils (%) (Auto) 62 % (31-73) Lymphocytes (%) (Auto) 24 % (24-48) Monocytes (%) (Auto) 10 % (0-9) Eosinophils (%) (Auto) 3 % (0-3) Basophils (%) (Auto) 1 % (0-3) Neutrophils # (Auto) 4.3 x10^3/uL (1.8-7.7) Lymphocytes # (Auto) 1.7 x10^3/uL (1.0-4.8) Monocytes # (Auto) 0.7 x10^3/uL (0.0-1.1) Eosinophils # (Auto) 0.2 x10^3/uL (0.0-0.7) Basophils # (Auto) 0.1 x10^3/uL (0.0-0.2) Platelet Estimate Adequate (ADEQUATE) Large Platelets Few Prothrombin Time 13.1 SEC (11.7-14.0) Prothromb Time International Ratio 1.0 (0.8-1.1) Activated Partial Thromboplast Time 28 SEC (24-38) Sodium Level 138 mmol/L (136-145) Potassium Level 3.6 mmol/L (3.5-5.1) Chloride Level 104 mmol/L (98-107) Carbon Dioxide Level 24 mmol/L (21-32) Anion Gap 10 (6-14) Blood Urea Nitrogen 13 mg/dL (8-26) Creatinine 1.4 mg/dL (0.7-1.3) Estimated GFR (Cockcroft-Gault) 59.0 BUN/Creatinine Ratio 9 (6-20) Glucose Level 153 mg/dL (70-99) Lactic Acid Level 1.9 mmol/L (0.4-2.0) Calcium Level 8.7 mg/dL (8.5-10.1) Total Bilirubin 0.4 mg/dL (0.2-1.0) Aspartate Amino Transf (AST/SGOT) 19 U/L (15-37) Alanine Aminotransferase (ALT/SGPT) 17 U/L (16-63) Alkaline Phosphatase 139 U/L (46-116) Troponin I High Sensitivity 1456 ng/L (4-75) KQ-Jbo-C-Type Natriuretic Peptide 5866 pg/mL (0-449) Total Protein 6.5 g/dL (6.4-8.2) Albumin 3.1 g/dL (3.4-5.0) Albumin/Globulin Ratio 0.9 (1.0-1.7) Procalcitonin < 0.10 ng/mL (0.00-0.10) Laboratory Tests Test 02/07/22 05:35 02/07/22 06:20 Influenza Type A Antigen Negative (NEGATIVE) Influenza Type B Antigen Negative (NEGATIVE) SARS-CoV-2 Antigen (Rapid) Negative (NEGATIVE) White Blood Count 6.9 x10^3/uL (4.0-11.0) Red Blood Count 4.18 x10^6/uL (4.30-5.70) Hemoglobin 12.7 g/dL (13.0-17.5) Hematocrit 38.1 % (39.0-53.0) Mean Corpuscular Volume 91 fL (79-100) Mean Corpuscular Hemoglobin 30 pg (25-35) Mean Corpuscular Hemoglobin Concent 33 g/dL (31-37) Red Cell Distribution Width 14.6 % (11.5-14.5) Platelet Count 192 x10^3/uL (140-400) Neutrophils (%) (Auto) 62 % (31-73) Lymphocytes (%) (Auto) 24 % (24-48) Monocytes (%) (Auto) 10 % (0-9) Eosinophils (%) (Auto) 3 % (0-3) Basophils (%) (Auto) 1 % (0-3) Neutrophils # (Auto) 4.3 x10^3/uL (1.8-7.7) Lymphocytes # (Auto) 1.7 x10^3/uL (1.0-4.8) Monocytes # (Auto) 0.7 x10^3/uL (0.0-1.1) Eosinophils # (Auto) 0.2 x10^3/uL (0.0-0.7) Basophils # (Auto) 0.1 x10^3/uL (0.0-0.2) Platelet Estimate Adequate (ADEQUATE) Large Platelets Few Prothrombin Time 13.1 SEC (11.7-14.0) Prothromb Time International Ratio 1.0 (0.8-1.1) Activated Partial Thromboplast Time 28 SEC (24-38) Sodium Level 138 mmol/L (136-145) Potassium Level 3.6 mmol/L (3.5-5.1) Chloride Level 104 mmol/L (98-107) Carbon Dioxide Level 24 mmol/L (21-32) Anion Gap 10 (6-14) Blood Urea Nitrogen 13 mg/dL (8-26) Creatinine 1.4 mg/dL (0.7-1.3) Estimated GFR (Cockcroft-Gault) 59.0 BUN/Creatinine Ratio 9 (6-20) Glucose Level 153 mg/dL (70-99) Lactic Acid Level 1.9 mmol/L (0.4-2.0) Calcium Level 8.7 mg/dL (8.5-10.1) Total Bilirubin 0.4 mg/dL (0.2-1.0) Aspartate Amino Transf (AST/SGOT) 19 U/L (15-37) Alanine Aminotransferase (ALT/SGPT) 17 U/L (16-63) Alkaline Phosphatase 139 U/L (46-116) Troponin I High Sensitivity 1456 ng/L (4-75) CY-Dsk-O-Type Natriuretic Peptide 5866 pg/mL (0-449) Total Protein 6.5 g/dL (6.4-8.2) Albumin 3.1 g/dL (3.4-5.0) Albumin/Globulin Ratio 0.9 (1.0-1.7) Procalcitonin < 0.10 ng/mL (0.00-0.10) Assessment/Plan Assessment/Plan Dyspnea secondary to acute on chronic diastolic heart failure, history CAD CABG. Troponinemia. History arthritis CAD COPD type 2 diabetes hypertension hyperlipidemia -1 day history dyspnea particularly when laying flat. Significant cardiac history. Elevated troponins and BNP on presentation. -Admit to telemetry floor -Cardiology consulted -Continue to trend troponin. -Heparin drip -Received 40 Lasix in the ER we will resume home with 40 dose -Obtain records from cardiology -Echo ordered here -Home meds as indicated -Cardiac diet -Discussed with cardiology team Justifications for Admission Other Justification AUDREY VIDALES MD Feb 07, 2022 14:17
[2022-02-07 15:00] VITALS: BP 137/67
[2022-02-07] MEDS: INSULIN LISPRO 300 UNITS/3 ML VIAL. SQ SCH (16:30)
[2022-02-07] MEDS: TAMSULOSIN 0.4 MG CAP.ER.24H. PO SCH (16:49)
[2022-02-07] MEDS: LUBIPROSTONE 24 MCG CAPSULE PO SCH (16:49)
[2022-02-07] MEDS: SUCRALFATE 1 GM TABLET. PO SCH (16:50)
[2022-02-07] MEDS ORDERED: NON FORMULARY ITEM (Fluticasone/Salmeterol (Advair 250-50 Diskus) 1 PUFF) SCH (18:00)
[2022-02-07 19:00] VITALS: BP 176/72
--- NOTE | 2022-02-07 19:35 | NUR ---
PT SITTING UP IN CHAIR ASSESSMENT COMPLETED VSS POC EXPLAINED PT DENIED PAIN AT THIS TIME. PT ASSISTED TO BED WITH STAND BY ASSIST WILL RESUME CARE AND CONTINUE TO MONITOR PT.
[2022-02-07] MEDS ORDERED: ATORVASTATIN CALCIUM 10 MG TABLET. PO SCH (21:00)
[2022-02-07] MEDS: SENNOSIDES/DOCUSATE 8.6/50MG TABLET. PO SCH (21:09)
[2022-02-07] MEDS: ATORVASTATIN CALCIUM 40 MG TABLET. PO SCH (21:09)
[2022-02-07] MEDS: INSULIN GLARGINE SYRINGE. SQ SCH (21:12)
--- NOTE | 2022-02-07 22:00 | NUR ---
Change of care note: Pt in bed resting comfortable report given to Melida Zapata to resume pt care.
[2022-02-07 22:10] VITALS: BP 157/65
[2022-02-08 02:17] VITALS: BP 132/59
[2022-02-08] MEDS: HEPARIN 25,000UTS/250ML PREMIX 250 ML IV PRN (02:56)
[2022-02-08 05:37] LABS: BASO % 1 % (0-3); EOS # 0.3 x10^3/uL (0.0-0.7); EOS % 4 % (0-3); HEMATOCRIT 33.2 % (39.0-53.0); HEMOGLOBIN 11.2 g/dL (13.0-17.5); LYMPH # 1.4 x10^3/uL (1.0-4.8); LYMPH % 21 % (24-48); MEAN CORPUSCULAR HEMOGLOBIN 31 pg (25-35); MEAN CORPUSCULAR HGB CONC 34 g/dL (31-37); MEAN CORPUSCULAR VOLUME 92 fL (79-100); MONO % 14 % (0-9); NEUT # 4.3 x10^3/uL (1.8-7.7); NEUT % 61 % (31-73); PLATELET COUNT 180 x10^3/uL (140-400); RED BLOOD COUNT 3.61 x10^6/uL (4.30-5.70); RED CELL DISTRIBUTION WIDTH 14.8 % (11.5-14.5)
[2022-02-08] MEDS: PANTOPRAZOLE 40 MG TABLET.DR. PO SCH (06:04)
[2022-02-08] MEDS: SUCRALFATE 1 GM TABLET. PO SCH ×2 (06:04→17:34)
[2022-02-08] MEDS: METOCLOPRAMIDE 10 MG TABLET. PO SCH ×3 (06:05→15:27)
[2022-02-08 06:26] LABS: ALBUMIN 2.7 g/dL (3.4-5.0); ALBUMIN/GLOBULIN RATIO 0.8 (1.0-1.7); CALCIUM 8.4 mg/dL (8.5-10.1); CREATININE 1.5 mg/dL (0.7-1.3); GFR 54.5; POTASSIUM 3.7 mmol/L (3.5-5.1); TOTAL BILIRUBIN 0.4 mg/dL (0.2-1.0); TOTAL PROTEIN 6.1 g/dL (6.4-8.2)
[2022-02-08 07:00] VITALS: BP 144/60
[2022-02-08] MEDS: INSULIN LISPRO 300 UNITS/3 ML VIAL. SQ SCH ×2 (07:30→16:30)
[2022-02-08] MEDS: ALBUTEROL SULFATE 2.5 MG/3 ML NEBU. NEB SCH ×4 (07:32→20:00)
[2022-02-08] MEDS: BUDESONIDE 0.5 MG/2 ML NEBU. NEB SCH ×2 (07:32→20:00)
[2022-02-08] MEDS: SENNOSIDES/DOCUSATE 8.6/50MG TABLET. PO SCH ×2 (08:57→20:18)
[2022-02-08] MEDS: FOLIC/VIT B COMP W-C (RENAL) TABLET. PO SCH (08:58)
[2022-02-08] MEDS: ALLOPURINOL 300 MG TABLET. PO SCH (08:58)
[2022-02-08] MEDS: ASPIRIN ENTERIC COATED 81 MG TABLET.DR. PO SCH (08:58)
[2022-02-08] MEDS: SPIRONOLACTONE 25 MG TABLET PO SCH (08:58)
[2022-02-08] MEDS: FUROSEMIDE 40 MG TABLET. PO SCH (08:58)
[2022-02-08] MEDS: FLUTICASONE 50MCG/NASAL SPRAY 16GM BOTTLE. NS SCH (08:59)
[2022-02-08] MEDS: ISOSORBIDE MONONITRATE ER 30 MG TAB.ER.24H PO SCH (08:59)
[2022-02-08] MEDS: LUBIPROSTONE 24 MCG CAPSULE PO SCH ×2 (08:59→15:29)
[2022-02-08] MEDS ORDERED: SPIRONOLACTONE 25 MG TABLET PO SCH (09:00)
[2022-02-08] MEDS: INSULIN GLARGINE SYRINGE. SQ SCH ×2 (09:00→21:36)
[2022-02-08] MEDS: POLYETHYLENE GLYCOL 3350 17 GM PACKET. PO SCH (09:00)
[2022-02-08] MEDS: GABAPENTIN 100 MG CAPSULE. PO SCH ×3 (09:01→20:17)
--- NOTE | 2022-02-08 10:16 | EKG ---
[facility] [address] [place] [address] Test Date: 2022-02-07 Test Time: 05:19:54 Pat Name: ANAHI BARTON Department: Room: Gender: M Infant Nanny: : 1940 Requested By: JANUARY MILES Order Number: [id number] Reading MD: Measurements Intervals Rogers Rate: 73 P: KS: QRS: -25 QRSD: 84 T: 82 QT: 480 QTc: 533 Interpretive Statements IRREGULAR RHYTHM, NO P-WAVE FOUND VENTRICULAR PREMATURE COMPLEX(ES) LEFTWARD AXIS QRS(T) CONTOUR ABNORMALITY CONSISTENT WITH ANTEROSEPTAL INFARCT PROBABLY OLD CONSISTENT WITH INFERIOR INFARCT PROBABLY OLD T ABNORMALITY IN HIGH LATERAL LEADS ABNORMAL ECG RI6.02
[2022-02-08 11:00] VITALS: BP 140/84
--- NOTE | 2022-02-08 11:20 | PDOC ---
MARTI HAYWOOD INSPECTOR EXHAUST EMISSIONS 02/08/22 1120: CARDIO Progress Notes Date and Time Date of Service 02/08/22 Time of Evaluation 1115 Subjective Subjective: No Chest Pain, No Palpitations, No Dizziness, Other (breathing improved ) Vitals Vitals Vital Signs Date Time Temp Pulse Resp B/P (MAP) Pulse Ox O2 Delivery O2 Flow Rate FiO2 02/08/22 11:15 98 Nasal Cannula 2.0 02/08/22 08:59 53 144/60 02/08/22 07:00 98.3 18 98.3 Weight Weight [ ] Input and Output Intake and Output Intake and Output 02/08/22 07:00 Intake Total 830.6 ml Output Total 1800 ml Balance -969.4 ml Intake Oral 560 ml IV Total 270.6 ml Output Urine Total 1800 ml Laboratory Labs Laboratory Tests Test 02/07/22 14:15 02/07/22 17:17 02/07/22 19:43 02/07/22 21:26 Heparin Anti-Xa Act, Unfractionated 0.21 IU/mL (0.30-0.70) 0.27 IU/mL (0.30-0.70) Troponin I High Sensitivity 1047 ng/L (4-75) Glucose (Fingerstick) 133 mg/dL (70-99) 138 mg/dL (70-99) Test 02/08/22 04:35 02/08/22 07:55 02/08/22 11:06 White Blood Count 7.0 x10^3/uL (4.0-11.0) Red Blood Count 3.61 x10^6/uL (4.30-5.70) Hemoglobin 11.2 g/dL (13.0-17.5) Hematocrit 33.2 % (39.0-53.0) Mean Corpuscular Volume 92 fL (79-100) Mean Corpuscular Hemoglobin 31 pg (25-35) Mean Corpuscular Hemoglobin Concent 34 g/dL (31-37) Red Cell Distribution Width 14.8 % (11.5-14.5) Platelet Count 180 x10^3/uL (140-400) Neutrophils (%) (Auto) 61 % (31-73) Lymphocytes (%) (Auto) 21 % (24-48) Monocytes (%) (Auto) 14 % (0-9) Eosinophils (%) (Auto) 4 % (0-3) Basophils (%) (Auto) 1 % (0-3) Neutrophils # (Auto) 4.3 x10^3/uL (1.8-7.7) Lymphocytes # (Auto) 1.4 x10^3/uL (1.0-4.8) Monocytes # (Auto) 1.0 x10^3/uL (0.0-1.1) Eosinophils # (Auto) 0.3 x10^3/uL (0.0-0.7) Basophils # (Auto) 0.0 x10^3/uL (0.0-0.2) Heparin Anti-Xa Act, Unfractionated 0.29 IU/mL (0.30-0.70) Sodium Level 141 mmol/L (136-145) Potassium Level 3.7 mmol/L (3.5-5.1) Chloride Level 106 mmol/L (98-107) Carbon Dioxide Level 27 mmol/L (21-32) Anion Gap 8 (6-14) Blood Urea Nitrogen 16 mg/dL (8-26) Creatinine 1.5 mg/dL (0.7-1.3) Estimated GFR (Cockcroft-Gault) 54.5 BUN/Creatinine Ratio 11 (6-20) Glucose Level 124 mg/dL (70-99) Calcium Level 8.4 mg/dL (8.5-10.1) Total Bilirubin 0.4 mg/dL (0.2-1.0) Aspartate Amino Transf (AST/SGOT) 12 U/L (15-37) Alanine Aminotransferase (ALT/SGPT) 15 U/L (16-63) Alkaline Phosphatase 104 U/L (46-116) Total Protein 6.1 g/dL (6.4-8.2) Albumin 2.7 g/dL (3.4-5.0) Albumin/Globulin Ratio 0.8 (1.0-1.7) Glucose (Fingerstick) 107 mg/dL (70-99) 141 mg/dL (70-99) Microbiology Micro Microbiology 02/07/22 Blood Culture - Preliminary, Resulted NO GROWTH AFTER 1 DAY Physical Exam HEENT: Neck Supple W Full Motion Chest: Symmetric LUNGS: Other (diminished bases) Heart: RRR (SR/SB) Abdomen: Soft N/T, Other (obese) Extremities: Other (1+ bilateral LE edema ) Neurology: alert, oriented, follow commands Assessment Assessment 1. Acute respiratory failure secondary to acute on chronic diastolic CHF; Echo 01/09 with LVEF 50% as noted above. 2. NSTEMI; initial trop 1456. on heparin gtt. Most probable type II, demand ischemia secondary to above. CP free 3. CAD; s/p CABG x3 07/10. Follows with [facility] 4. Accelerated hypertension; now improved 5. Hyperlipidemia; statin 6. DM2 7. PAFIB; presently SR. recent event monitor with brief period of second degree type one AVB and brief second degree type II AVB with HR 34 as noted above 8. CKD; Cr stable 9. Morbid obesity, TRITSON Recommendations Recheck trop level If trop continue to trend downward, will discontinue heparin gtt Will give additional dose of Lasix today Secondary prevention No BB with bradycardia Outpatient ischemic evaluation Justicifation of Admission Dx: Justifications for Admission: Justification of Admission Dx: Yes Comments: Acute on chronic diastolic CHF NSTEMI KATERINE GLOVER MD 02/09/22 0630: CARDIO Progress Notes Assessment Assessment Patient seen and examined. Agree with FOOD SERVICE ORDER CLERK's assessment and plan. Non-STEMI most probably demand ischemia Acute on chronic diastolic heart failure better compensated Agree with additional dose of lasix and possibly stopping heparin gtt Recent 2D echo showed LVEF 50% CAD s/p CABG clinically stable Blood pressure better controlled since admission PAF presently sinus rhythm MARTI HAYWOOD APRN Feb 08, 2022 11:20 KATERINE GLOVER MD Feb 09, 2022 06:30
[2022-02-08 15:00] VITALS: BP 140/67
[2022-02-08] MEDS ORDERED: FUROSEMIDE 40 MG TABLET. PO ONE (15:00)
[2022-02-08] MEDS ORDERED: POTASSIUM CHLORIDE 20 MEQ TABLET.ER. PO ONE (15:00)
[2022-02-08] MEDS: TAMSULOSIN 0.4 MG CAP.ER.24H. PO SCH (15:27)
--- NOTE | 2022-02-08 15:34 | NUR ---
SS following for discharge planning. SS reviewed pt chart and discussed with pt RN. Pt is from home and is currently on room air. Cardiology following. COVID19 negative. SS will continue to follow for discharge planning.
--- NOTE | 2022-02-08 18:59 | PDOC ---
[employer] PROGRESS NOTE Date of Service DOS: DATE: 02/08/22 TIME: 18:58 Chief Complaint Chief Complaint Dyspnea secondary to acute on chronic diastolic heart failure, history CAD CABG. Troponinemia. History arthritis CAD COPD type 2 diabetes hypertension hyperlipidemia -1 day history dyspnea particularly when laying flat. Significant cardiac history. Elevated troponins and BNP on presentation. Troponins have trended down -Admit to telemetry floor -Cardiology consulted -Heparin drip, discontinued on 421 -Received 40 Lasix in the ER we will resume home with 40 dose -Obtain records from cardiology -Echo ordered here -Home meds as indicated -Cardiac diet -Discussed with cardiology team History of Present Illness History of Present Illness 02/08 Patient evaluated examined at bedside. Resting in bed without complaint. Troponins have trended down. Okay to DC heparin drip today. Discussed with cardiology team. Echo today. Diuresis per cardiology. If continued improvement possible discharge tomorrow or the next Vitals/I&O Vitals/I&O: Vital Signs Date Time Temp Pulse Resp B/P (MAP) Pulse Ox O2 Delivery O2 Flow Rate FiO2 02/08/22 15:49 97 Room Air 02/08/22 15:00 98.8 67 18 140/67 (91) 98.8 02/08/22 11:15 2.0 I & O 02/07/22 02/07/22 02/08/22 15:00 23:00 07:00 Intake Total 653.6 ml 177 ml Output Total 900 ml 400 ml 500 ml Balance -900 ml 253.6 ml -323 ml Physical Exam General: Alert, Oriented X3, Cooperative Heart: Regular rate, Normal S1, Normal S2 Lungs: Clear, Crackles Abdomen: Normal bowel sounds, Soft, No tenderness Extremities: No edema, Normal pulses Skin: No significant lesion Labs Labs: Laboratory Tests Test 02/07/22 19:43 02/07/22 21:26 02/08/22 04:35 02/08/22 07:55 Glucose (Fingerstick) 138 mg/dL (70-99) 107 mg/dL (70-99) Heparin Anti-Xa Act, Unfractionated 0.27 IU/mL (0.30-0.70) 0.29 IU/mL (0.30-0.70) White Blood Count 7.0 x10^3/uL (4.0-11.0) Red Blood Count 3.61 x10^6/uL (4.30-5.70) Hemoglobin 11.2 g/dL (13.0-17.5) Hematocrit 33.2 % (39.0-53.0) Mean Corpuscular Volume 92 fL (79-100) Mean Corpuscular Hemoglobin 31 pg (25-35) Mean Corpuscular Hemoglobin Concent 34 g/dL (31-37) Red Cell Distribution Width 14.8 % (11.5-14.5) Platelet Count 180 x10^3/uL (140-400) Neutrophils (%) (Auto) 61 % (31-73) Lymphocytes (%) (Auto) 21 % (24-48) Monocytes (%) (Auto) 14 % (0-9) Eosinophils (%) (Auto) 4 % (0-3) Basophils (%) (Auto) 1 % (0-3) Neutrophils # (Auto) 4.3 x10^3/uL (1.8-7.7) Lymphocytes # (Auto) 1.4 x10^3/uL (1.0-4.8) Monocytes # (Auto) 1.0 x10^3/uL (0.0-1.1) Eosinophils # (Auto) 0.3 x10^3/uL (0.0-0.7) Basophils # (Auto) 0.0 x10^3/uL (0.0-0.2) Sodium Level 141 mmol/L (136-145) Potassium Level 3.7 mmol/L (3.5-5.1) Chloride Level 106 mmol/L (98-107) Carbon Dioxide Level 27 mmol/L (21-32) Anion Gap 8 (6-14) Blood Urea Nitrogen 16 mg/dL (8-26) Creatinine 1.5 mg/dL (0.7-1.3) Estimated GFR (Cockcroft-Gault) 54.5 BUN/Creatinine Ratio 11 (6-20) Glucose Level 124 mg/dL (70-99) Calcium Level 8.4 mg/dL (8.5-10.1) Total Bilirubin 0.4 mg/dL (0.2-1.0) Aspartate Amino Transf (AST/SGOT) 12 U/L (15-37) Alanine Aminotransferase (ALT/SGPT) 15 U/L (16-63) Alkaline Phosphatase 104 U/L (46-116) Total Protein 6.1 g/dL (6.4-8.2) Albumin 2.7 g/dL (3.4-5.0) Albumin/Globulin Ratio 0.8 (1.0-1.7) Test 02/08/22 11:06 02/08/22 12:30 02/08/22 17:00 Glucose (Fingerstick) 141 mg/dL (70-99) 116 mg/dL (70-99) Heparin Anti-Xa Act, Unfractionated 0.67 IU/mL (0.30-0.70) Troponin I High Sensitivity 550 ng/L (4-75) Assessment and Plan Assessmemt and Plan Problems Medical Problems: (1) Atrial fibrillation and flutter Status: Acute (2) CHF (congestive heart failure) Status: Acute (3) NSTEMI (non-ST elevated myocardial infarction) Status: Acute (4) Orthopnea Status: Acute Comment Review of Relevant I have reviewed the following items melissa (where applicable) has been applied. Medications: Current Medications Medications (Trade) Dose Ordered Sig/Jalyn Route PRN Reason Start Time Stop Time Status Last Admin Dose Admin Insulin Glargine (Lantus Syringe) 20 unit BID SQ 02/07/22 21:00 02/07/22 21:12 Senna/Docusate Sodium (Senna Plus) 1 tab BID PO 02/07/22 21:00 02/08/22 08:57 Atorvastatin Calcium (Lipitor) 40 mg QHS PO 02/07/22 21:00 02/07/22 21:09 Aspirin (Ecotrin) 81 mg DAILYWBKFT PO 02/08/22 08:00 02/08/22 08:58 Furosemide (Lasix) 40 mg 1X ONCE PO 02/08/22 15:00 02/08/22 15:01 DC 02/08/22 15:28 Potassium Chloride (Klor-Con) 20 meq 1X ONCE PO 02/08/22 15:00 02/08/22 15:01 DC 02/08/22 15:27 Justifications for Admission Other Justification AUDREY VIDALES MD Feb 08, 2022 18:59
[2022-02-08 19:26] VITALS: BP 149/65
[2022-02-08] MEDS: ATORVASTATIN CALCIUM 40 MG TABLET. PO SCH (20:18)
[2022-02-08 22:11] VITALS: BP 132/63
[2022-02-09 02:37] VITALS: BP 136/56
[2022-02-09 06:21] VITALS: BP 150/66
[2022-02-09] MEDS: FLUTICASONE 50MCG/NASAL SPRAY 16GM BOTTLE. NS SCH (07:28)
[2022-02-09] MEDS: POLYETHYLENE GLYCOL 3350 17 GM PACKET. PO SCH (07:29)
[2022-02-09] MEDS: SUCRALFATE 1 GM TABLET. PO SCH (07:30)
[2022-02-09] MEDS: INSULIN LISPRO 300 UNITS/3 ML VIAL. SQ SCH (07:30)
[2022-02-09] MEDS: BUDESONIDE 0.5 MG/2 ML NEBU. NEB SCH (07:56)
[2022-02-09] MEDS: ALBUTEROL SULFATE 2.5 MG/3 ML NEBU. NEB SCH ×2 (07:56→11:25)
[2022-02-09] MEDS: INSULIN GLARGINE SYRINGE. SQ SCH (08:30)
[2022-02-09] MEDS: PANTOPRAZOLE 40 MG TABLET.DR. PO SCH (08:51)
[2022-02-09] MEDS: LUBIPROSTONE 24 MCG CAPSULE PO SCH (08:51)
[2022-02-09] MEDS: METOCLOPRAMIDE 10 MG TABLET. PO SCH ×2 (08:51→11:06)
[2022-02-09] MEDS: FOLIC/VIT B COMP W-C (RENAL) TABLET. PO SCH (08:51)
[2022-02-09] MEDS: FUROSEMIDE 40 MG TABLET. PO SCH (08:51)
[2022-02-09] MEDS: ASPIRIN ENTERIC COATED 81 MG TABLET.DR. PO SCH (08:51)
[2022-02-09] MEDS: GABAPENTIN 100 MG CAPSULE. PO SCH (08:52)
[2022-02-09] MEDS: ALLOPURINOL 300 MG TABLET. PO SCH (08:52)
[2022-02-09] MEDS: SPIRONOLACTONE 25 MG TABLET PO SCH (08:52)
[2022-02-09] MEDS: SENNOSIDES/DOCUSATE 8.6/50MG TABLET. PO SCH (08:53)
[2022-02-09] MEDS: ISOSORBIDE MONONITRATE ER 30 MG TAB.ER.24H PO SCH (08:53)
[2022-02-09 11:02] VITALS: BP 137/63
--- NOTE | 2022-02-09 12:11 | PDOC ---
JOANA WEST PHARMACY BILLING ADJUDICATOR 02/09/22 1211: CARDIO Progress Notes Date and Time Date of Service 02/09/2022 Time of Evaluation 1200 Subjective Subjective: No Chest Pain, No shortness of breath, No Palpitations Vitals Vitals Vital Signs Date Time Temp Pulse Resp B/P (MAP) Pulse Ox O2 Delivery O2 Flow Rate FiO2 02/09/22 11:26 95 Room Air 02/09/22 11:02 74 20 137/63 (87) 02/09/22 08:00 2.0 02/09/22 06:21 98.5 98.5 Weight Weight [ ] Input and Output Intake and Output Intake and Output 02/09/22 07:00 Intake Total 722 ml Output Total 325 ml Balance 397 ml Intake Oral 560 ml IV Total 162 ml Output Urine Total 325 ml Laboratory Labs Laboratory Tests Test 02/08/22 12:30 02/08/22 17:00 02/08/22 21:00 02/09/22 07:32 Heparin Anti-Xa Act, Unfractionated 0.67 IU/mL (0.30-0.70) Troponin I High Sensitivity 550 ng/L (4-75) Glucose (Fingerstick) 116 mg/dL (70-99) 140 mg/dL (70-99) 105 mg/dL (70-99) Test 02/09/22 10:57 Glucose (Fingerstick) 142 mg/dL (70-99) Microbiology Micro Microbiology 02/07/22 Blood Culture - Preliminary, Resulted NO GROWTH AFTER 2 DAYS Physical Exam HEENT: Neck Supple W Full Motion Chest: Symmetric LUNGS: Other (diminished bases) Heart: RRR (SR/SB) Abdomen: Soft N/T, Other (obese) Extremities: Other (1+ bilateral LE edema ) Neurology: alert, oriented, follow commands Assessment Assessment 1. Acute respiratory failure secondary to acute on chronic diastolic CHF; Echo 01/09 with LVEF 50% 2. NSTEMI; peaked trop 1456. Most probable type II, demand ischemia secondary to above. CP free 3. CAD; s/p CABG x3 07/10. Follows with [facility] 4. Accelerated hypertension; controlled 5. Hyperlipidemia; statin 6. DM2 7. PAFIB; presently SR. recent event monitor with brief period of second degree type one AVB and brief second degree type II AVB with HR 34 as noted above . None further 8. CKD; Cr stable 9. Morbid obesity, [place] Recommendations Lasix therapy Secondary prevention No BB with bradycardia. Continue ASA Outpatient ischemic evaluation with [facility] Justicifation of Admission Dx: Justifications for Admission: Justification of Admission Dx: Yes KATERINE GLOVER MD 02/09/221934: CARDIO Progress Notes Assessment Assessment Patient seen and examined. Agree with RECORDS OFFICER's assessment and plan. Non-STEMI most probably demand ischemia Acute on chronic diastolic heart failure better compensated Agree with additional dose of lasix and possibly stopping heparin gtt Recent 2D echo showed LVEF 50% CAD s/p CABG clinically stable Blood pressure better controlled since admission PAF presently sinus rhythm JOANA WEST APRN Feb 09, 2022 12:11 KATERINE GLOVER MD Feb 09, 2022 19:35
--- NOTE | 2022-02-10 20:43 | PDOC3 ---
[facility]-Discharge Summary Date of Admission: Date of Admission: Feb 07, 2022 Date of Discharge: Date of Discharge: Feb 09, 2022 Admission Diagnosis: Admitting Diagnosis: nstemi, chf, chest pain Consults: Consults: cardiology Hospital Course: Hospital Course: Chief Complaint Dyspnea secondary to acute on chronic diastolic heart failure, history CAD CABG. Troponinemia. History arthritis CAD COPD type 2 diabetes hypertension hyperlipidemia -1 day history dyspnea particularly when laying flat. Significant cardiac history. Elevated troponins and BNP on presentation. Troponins have trended down -Admit to telemetry floor -Cardiology consulted -Heparin drip, discontinued on 421 -Received 40 Lasix in the ER we will resume home with 40 dose -Obtain records from cardiology -Echo ordered here -Home meds as indicated -Cardiac diet -Discussed with cardiology team History of Present Illness History of Present Illness 02/08 Patient evaluated examined at bedside. Resting in bed without complaint. Troponins have trended down. Okay to DC heparin drip today. Discussed with cardiology team. Echo today. Diuresis per cardiology. If continued improvement possible discharge tomorrow or the next 02/09 Patient evaluated examined at bedside. Discussed with cardiology okay to discharge from their standpoint today. Agree. Greater than 30 minutes spent on discharge. 22 minutes advance care planning. Disposition: Disposition/Orders: D/C to Home Activity: Activity: Resume previous activity Diet: Diet: Cardiac Medications: Home Meds Active Scripts Insulin Lispro (HUMALOG) 100 Unit/1 Ml Insuln.pen, 20 UNITS SQ BIDBFRMEAL for DM for 30 Days, #5 EACH see sliding scale Prov:ANGEL AWAN MD 11/07/18 Insulin Glargine,Hum.rec.anlog (LANTUS SOLOSTAR) 100 Unit/1 Ml Insuln.pen, 20 UNITS SQ BID for DM for 30 Days, #5 EACH 5 Refills Prov:ANGEL AWAN MD 11/07/18 Polyethylene Glycol 3350 (MIRALAX) 17 Gm Powd.pack, 1 PACKET PO DAILY, #30 PACKET 0 Refills Prov:LORI GARCIA 03/20/18 Aspirin (Children's Aspirin) 81 Mg Tab.chew, 324 MG PO 1X, #30 TAB.CHEW Prov:SANDRA NOLASCO MD 06/13/16 Reported Medications Ergocalciferol (Vitamin D2) (VITAMIN D2) 50,000 Unit Capsule, 1 CAP PO WEEKLY for supplement, #4 CAP 5 Refills 11/04/18 Spironolactone (SPIRONOLACTONE) 25 Mg Tablet, 25 TAB PO DAILY for bp, #90 TAB 1 Refill 11/04/18 Omeprazole (OMEPRAZOLE) 40 Mg Capsule.dr, 1 CAP PO DAILY for gerd, #30 CAP 3 Refills 11/04/18 Nitroglycerin (NITROGLYCERIN SubLingual) 0.4 Mg Tab.subl, 0.4 MG SL PRN Q5MIN PRN for CHEST PAIN, BOTTLE 11/04/18 Metoprolol Succinate (METOPROLOL SUCCINATE ( XL )) 100 Mg Tab.er.24h, 1 TAB PO DAILY for bp, #30 TAB 5 Refills 11/04/18 Metoclopramide Hcl (REGLAN) 10 Mg Tablet, 1 TAB PO TID for gerd, #90 TAB 11/04/18 Loratadine (LORATADINE) 10 Mg Tablet, 1 TAB PO DAILY for allergy, #30 TAB 5 Refills 11/04/18 Atorvastatin Calcium (LIPITOR) 10 Mg Tablet, 1 TAB PO QHS for hld, #90 TAB 1 Refill 11/04/18 Linaclotide (LINZESS) 145 Mcg Capsule, 145 MCG PO DAILY07 for IRRITABLE BOWEL, CAP 11/04/18 Furosemide (FUROSEMIDE) 40 Mg Tablet, 1 TAB PO DAILY for HR/BP, #30 TAB 5 Refills 11/04/18 Gabapentin (Gabapentin) 100 Mg Capsule, 200 TID for unknown 11/04/18 Tamsulosin Hcl (TAMSULOSIN HCL) 0.4 Mg Cap.er.24h, 0.4 DAILYWSUP for unknown 11/04/18 Bisacodyl (CORRECTOL) 5 Mg Tablet, 10 MG PO PRN Q24HRS PRN for CONSTIPATION, TAB 11/04/18 Allopurinol (ALLOPURINOL) 300 Mg Tablet, 300 DAILY08 for unknown 11/04/18 Fluticasone/Salmeterol (ADVAIR 250-50 DISKUS) 1 Each Disk.w.dev, 1 PUFF BID66 for SOB 11/04/18 Fluticasone Propionate (FLUTICASONE PROPIONATE NASAL SPRAY) 16 Gm [place].susp, 2 SPRAY NS DAILY, #1 INHALER 11 Refills 4/23/16 Spironolactone (SPIRONOLACTONE) 25 Mg Tablet, 25 MG PO DAILY, TAB 03/10/15 Nitroglycerin (NITROGLYCERIN SubLingual) 0.4 Mg Tab.subl, 0.4 MG SL PRN Q5MIN PRN for CHEST PAIN, BOTTLE 08/11/14 Metoprolol Succinate (METOPROLOL SUCCINATE ( XL )) 100 Mg Tab.er.24h, 100 MG PO DAILY for FOR HYPERTENSION, #30 TAB 0 Refills 08/11/14 Amlodipine Besylate (AMLODIPINE BESYLATE) 5 Mg Tablet, 5 MG PO DAILY, TAB 08/11/14 Folic Acid/Vitamin B Comp W-C (NEPHRO-HARISH TABLET) 0.8 Mg Tablet, 0.8 MG PO DAILY 02/22/14 Sucralfate (SUCRALFATE) 1 Gm Tablet, 1 GM PO BIDBFRMEAL for unknown 02/21/14 Isosorbide Mononitrate (ISOSORBIDE MONONITRATE ER) 60 Mg Tab.er.24h, 60 MG PO DAILY 02/21/14 Albuterol Sulfate (ALBUTEROL SULFATE HFA INHALER) 8.5 Gm Hfa.aer.ad, 90 MCG IH PRN Q4-6HRS PRN for SHORTNESS OF BREATH 02/21/14 Ferrous Sulfate (IRON) 325 Mg Capsule.er, 325 MG PO DAILY 02/21/14 Discontinued Reported Medications Ranitidine Hcl (RANITIDINE HCL) 150 Mg Capsule, 150 MG PO DAILY for gerd, TAB 11/04/18 Discontinued Scripts Methylprednisolone (MEDROL) 4 Mg Tab.ds.pk, 1 PKG PO UD for asthma, #1 PKG Prov:ANGEL AWAN MD 11/07/18 Levofloxacin (LEVOFLOXACIN) 250 Mg Tablet, 250 MG PO DAILY for pneumonia for 7 Days, #7 TAB Prov:ANGEL AWAN MD 11/07/18 Scheduled Allopurinol (Allopurinol), 300 DAILY08, (Reported) Amlodipine Besylate (Amlodipine Besylate), 5 MG PO DAILY, (Reported) Aspirin (Children's Aspirin), 324 MG PO 1X Atorvastatin Calcium (Lipitor), 1 TAB PO QHS, (Reported) Ergocalciferol (Vitamin D2) (Vitamin D2), 1 CAP PO WEEKLY, (Reported) Ferrous Sulfate (Iron), 325 MG PO DAILY, (Reported) Fluticasone Propionate (Fluticasone Propionate Nasal [place]), 2 SPRAY NS DAILY, (Reported) Fluticasone/Salmeterol (Advair 250-50 Diskus), 1 PUFF BID66, (Reported) Folic Acid/Vitamin B Comp W-C (Nephro-Harish Tablet), 0.8 MG PO DAILY, (Reported) Furosemide (Furosemide), 1 TAB PO DAILY, (Reported) Gabapentin (Gabapentin), 200 TID, (Reported) Insulin Glargine,Hum.rec.anlog (Lantus Solostar), 20 UNITS SQ BID Insulin Lispro (Humalog), 20 UNITS SQ BIDBFRMEAL Isosorbide Mononitrate (Isosorbide Mononitrate Er), 60 MG PO DAILY, (Reported) Linaclotide (Linzess), 145 MCG PO DAILY07, (Reported) Loratadine (Loratadine), 1 TAB PO DAILY, (Reported) Metoclopramide Hcl (Reglan), 1 TAB PO TID, (Reported) Metoprolol Succinate (Metoprolol Succinate ( Xl )), 100 MG PO DAILY, (Reported) Metoprolol Succinate (Metoprolol Succinate ( Xl )), 1 TAB PO DAILY, (Reported) Omeprazole (Omeprazole), 1 CAP PO DAILY, (Reported) Polyethylene Glycol 3350 (Miralax), 1 PACKET PO DAILY Spironolactone (Spironolactone), 25 MG PO DAILY, (Reported) Spironolactone (Spironolactone), 25 TAB PO DAILY, (Reported) Sucralfate (Sucralfate), 1 GM PO BIDBFRMEAL, (Reported) Tamsulosin Hcl (Tamsulosin Hcl), 0.4 DAILYWSUP, (Reported) Scheduled PRN Albuterol Sulfate (Albuterol Sulfate Hfa Inhaler), 90 MCG IH PRN Q4-6HRS PRN for SHORTNESS OF BREATH, (Reported) Bisacodyl (Correctol), 10 MG PO PRN Q24HRS PRN for CONSTIPATION, (Reported) Nitroglycerin (NITROGLYCERIN SubLingual), 0.4 MG SL PRN Q5MIN PRN for CHEST PAIN, (Reported) Nitroglycerin (NITROGLYCERIN SubLingual), 0.4 MG SL PRN Q5MIN PRN for CHEST PAIN, (Reported) Discontinued Medications Levofloxacin (Levofloxacin), 250 MG PO DAILY Methylprednisolone (Medrol), 1 PKG PO UD Ranitidine Hcl (Ranitidine Hcl), 150 MG PO DAILY, (Reported) Justicifation of Admission Dx: Justifications for Admission: Justification of Admission Dx: Yes AUDREY VIDALES MD Feb 10, 2022 20:43
== END 2022-02-09 12:30 | disposition home or self-care (01) | DRG 280 ==
LOC: ER 04:16 → ED HOLD 09:27 → 6 SOUTH 11:15
PROVIDERS: ADMIT Student in an Organized Health Care Education/Training Program; ATTEND Student in an Organized Health Care Education/Training Program
DX: I21.4 Non-ST elevation (NSTEMI) myocardial infarction (principal); I50.33 Acute on chronic diastolic (congestive) heart failure; J96.00 Acute respiratory failure, unspecified whether with hypoxia or hypercapnia; I13.0 Hypertensive heart and chronic kidney disease with heart failure and stage 1 through stage 4 chronic kidney disease, or unspecified chronic kidney disease; I48.92 Unspecified atrial flutter; Z20.822 Contact with and (suspected) exposure to COVID-19; E11.22 Type 2 diabetes mellitus with diabetic chronic kidney disease; E66.01 Morbid (severe) obesity due to excess calories; E78.00 Pure hypercholesterolemia, unspecified; E78.5 Hyperlipidemia, unspecified; G47.33 Obstructive sleep apnea (adult) (pediatric); I25.10 Atherosclerotic heart disease of native coronary artery without angina pectoris; I48.0 Paroxysmal atrial fibrillation; K21.9 Gastro-esophageal reflux disease without esophagitis; J44.9 Chronic obstructive pulmonary disease, unspecified; N18.9 Chronic kidney disease, unspecified; Z82.49 Family history of ischemic heart disease and other diseases of the circulatory system; Z83.3 Family history of diabetes mellitus; Z87.891 Personal history of nicotine dependence; Z95.5 Presence of coronary angioplasty implant and graft; D64.9 Anemia, unspecified; M10.9 Gout, unspecified; M19.90 Unspecified osteoarthritis, unspecified site; Z68.37 Body mass index [BMI] 37.0-37.9, adult; K59.00 Constipation, unspecified
CPT/HCPCS: 36415; 71045; 80053; 82962; 83605; 83880; 84145; 84484; 85025; 85520; 85610; 85730; 87040; 87428; 93005; 94640; 94760; 96374; 96375; J1644; J1815; J1940; 99285-25; G0378; J7613; J7626